=== PATIENT | male | born 1965 | race Caucasian/White ===

== ENCOUNTER 2016-04-01 10:28 | Emergency (ER) | payer MEDICAID, OTHER ==
[~2016-04-01] VITALS: Ht 175.3 cm; Wt 64.4 kg
[~2016-04-01 10:28] MED LIST: ALPR0.25 PO; ALPR0.5T PO; ALPR0.5T6 PO; AMIT100T PO; Amoxicillin/Potassium Clav PO; BENZ100C2 PO; BUPR300T4 PO; CABE0.5T PO; CARI350T PO; CHOL4POW11 PO; CITA10TA4 PO; CITA20TA9 PO; CYCL10TA2 PO; FAMO-63 PO; GABA-585 PO; GABA600T2 PO; HYDR-2666 PO; HYDR-2672 PO; HYDR-971 PO; HYDR5TAB PO; IBUP200T43 PO; LEVO100T PO; NITR0.4T6 SL; QUET100T PO; QUET100T4 PO; QUET25TA5 PO; QUET50TA8 PO; TIZA4TAB PO; ZOLP10TA PO; [UNRECOGNIZED DRUG - OTHER] PO; [UNRECOGNIZED DRUG - REMARK]; ambien
[2016-04-01] MEDS ORDERED: HYDR-963 PO (12:06)
--- NOTE | 2016-04-01 12:07 | PHYS DOC ---
Past Medical History Past Medical History: Anxiety, CHF, COPD, Hypertension Additional Past Medical Histor: DDD, pitutary brain tumor, liver problems, hep c,CHRONIC BACK PAIN Past Surgical History: Other Additional Past Surgical Histo: lower back surgery-2plates, aortic valve tumor removal Alcohol Use: None Drug Use: None Adult General Chief Complaint Chief Complaint: LOWER BACK PAIN OR INJURY [facility] HPI Patient is a 50 year old male who presents with complaint of worsening low back pain. Patient states that he has history of chronic back pain and had surgery in August 2015. The patient states that he has been having trouble with low back pain that radiates towards his left leg over the past week. Patient states that he unfortunately missed his appointment with Dr. Veláz[facility]. Patient states that his next appointment is on June 15, 2016. The patient currently is not having medications to help with this pain. Patient states he normally takes hydrocodone 10 mg tablets for his pain. Patient rates pain currently is 10 out of 10. Patient states that the pain shoots into his left leg. Patient denies any unique or unusual symptoms with his pain and states that it is behaving like it normally does when he does not have his medication. Patient denies any other symptoms currently. Review of Systems Review of Systems Constitutional: Denies fever or chills [] Eyes: Denies change in visual acuity, redness, or eye pain [] HENT: Denies nasal congestion or sore throat [] Respiratory: Denies cough or shortness of breath [] Cardiovascular: No additional information not addressed in HPI [] GI: Denies abdominal pain, nausea, vomiting, bloody stools or diarrhea [] : Denies dysuria or hematuria [] Musculoskeletal: Back pain [] Integument: Denies rash or skin lesions [] Neurologic: Denies headache, loss of bowel or bladder control, foot drop, focal weakness or sensory changes [] Current Medications Current Medications Current Medications Medications (Trade) Dose Ordered Sig/[facility] Start Time Stop Time Status Last Admin Dose Admin Ketorolac Tromethamine (Toradol Im) 60 mg 1X ONCE 04/01/16 12:15 04/01/16 12:16 DC 04/01/16 12:32 60 MG Morphine Sulfate 4 mg 1X ONCE 04/01/16 12:15 04/01/16 12:16 DC 04/01/16 12:32 4 MG Allergies Allergies Allergies Coded Allergies Type Severity Reaction Last Updated Verified Sulfa (Sulfonamide Antibiotics) Allergy Intermediate 03/08/16 Yes Physical Exam Physical Exam Constitutional: Alert, afebrile, appears in moderate discomfort. [] HENT: Normocephalic, atraumatic, bilateral external ears normal, oropharynx moist, no oral exudates, nose normal. [] Eyes: PERRLA, EOMI, conjunctiva normal, no discharge. [] Neck: Normal range of motion, no tenderness, supple, no stridor. [] Cardiovascular:Heart rate regular rhythm, no murmur [] Lungs & Thorax: Bilateral breath sounds clear to auscultation [] Abdomen: Bowel sounds normal, soft, no tenderness, no masses, no pulsatile masses. [] Skin: Warm, dry, no erythema, no rash. [] Back: Left lower lumbar paraspinous muscle tenderness to palpation, no midline tenderness, positive straight leg test in left lower extremity. [] Extremities: No tenderness, no cyanosis, no clubbing, ROM intact, no edema. [] Neurologic: Alert and oriented X 3, normal motor function, normal sensory function, no focal deficits noted. [] Current Patient Data Vital Signs Vital Signs Date Time Temp Pulse Resp B/P Pulse Ox O2 Delivery O2 Flow Rate FiO2 04/01/16 12:32 16 97 Room Air 04/01/16 12:30 67 102/56 04/01/16 11:05 97.5 97.5 EKG EKG Not performed [] Radiology/Procedures Radiology/Procedures Not performed [] Course & Med Decision Making Course & Med Decision Making Pertinent Labs and Imaging studies reviewed. (See chart for details) Patient has an acute exacerbation of chronic back pain. The patient was given IM morphine and Toradol in the emergency department. The patient was given a small prescription for hydrocodone 10 mg. Recommended further prescriptions to be written by the patient's primary physician. Advised return to emergency department for any worsening symptoms. Patient voiced understanding and agreement with treatment plan. Dragon Disclaimer Dragon Disclaimer This electronic medical record was generated, in whole or in part, using a voice recognition dictation system. Departure Departure Impression: Primary Impression: Lumbar back pain Disposition: 01 HOME, SELF-CARE Condition: IMPROVED Referrals: SOHEILA DAVIS MD (PCP) Patient Instructions: Chronic Back Pain Additional Instructions: Follow-up with your primary doctor in the next 3-4 days. Return to emergency department for any worsening symptoms. Scripts Hydrocodone/Apap 10-325 (Protection 10-325 Tablet)1 Each Tablet1 Tab PO Q4-6HRS PRN PAIN #20 TAB Prov:YENNY ORELLANA MD 04/01/16 Problem Qualifiers Primary Impression: Lumbar back pain Chronicity: chronic Back pain laterality: left Sciatica presence: with sciatica Sciatica laterality: sciatica of left side Qualified Code: M54.42 - Lumbago with sciatica, left side YENNY ORELLANA MD Apr 01, 2016 12:07
[2016-04-01] MEDS ORDERED: MORPHINE SULFATE 4 MG/ML DISP.SYRIN. IM ONE (12:15)
[2016-04-01] MEDS ORDERED: KETOROLAC TROMETHAMINE 60 MG/2 ML SYRINGE. IM ONE (12:15)
[2016-04-01 12:30] VITALS: BP 102/56
== END 2016-04-01 12:41 | disposition home or self-care (01) ==
LOC: ER 10:28
DX: M54.42 Lumbago with sciatica, left side (principal); J44.9 Chronic obstructive pulmonary disease, unspecified; G89.29 Other chronic pain; F41.9 Anxiety disorder, unspecified; I11.0 Hypertensive heart disease with heart failure; I50.9 Heart failure, unspecified; Z86.19 Personal history of other infectious and parasitic diseases; Z98.890 Other specified postprocedural states; Z88.2 Allergy status to sulfonamides
CPT/HCPCS: 96372; 99284; J1885; J2270

== ENCOUNTER 2016-05-16 13:57 | Emergency (ER) | payer OTHER ==
[~2016-05-16] VITALS: Ht 175.3 cm; Wt 64.4 kg
[~2016-05-16 13:57] MED LIST changes: +HYDR-963 PO
[2016-05-16] MEDS ORDERED: IV NORMAL SALINE 1000ML BAG 1,000 ML IV SCH (15:17)
--- NOTE | 2016-05-16 15:25 | PHYS DOC ---
Past Medical History Past Medical History: Anxiety, CHF, COPD, Hypertension Additional Past Medical Histor: DDD, pitutary brain tumor, liver problems, hep c,CHRONIC BACK PAIN Past Surgical History: Other Additional Past Surgical Histo: lower back surgery-2plates, aortic valve tumor removal Alcohol Use: None Drug Use: None Adult General Chief Complaint Chief Complaint: SYNCOPE HPI HPI Patient is a 51 year old male who presents with headache after having a syncopal episode. Patient states that the episode took place prior to arrival at home. The patient's episode was witnessed by his significant other who called EMS. Patient states he got very lightheaded prior to the episode. EMS reports that the patient fell to the ground and hit the back of his head on a wall. There were no reports as to how long the patient was out the description is consistent likely with a few minutes. The patient states that he has had intermittent episodes of the same in the past. The patient also states he has history of low blood pressure. Patient states that his blood pressures usually between 90 and 100 systolic. The patient states that he has pain to the back of his head which she rates as 8 out of 10. Patient denies any other injuries. Patient does have history of chronic back pain and states that the fall did exacerbate his back pain symptoms. Review of Systems Review of Systems Constitutional: Denies fever or chills [] Eyes: Denies change in visual acuity, redness, or eye pain [] HENT: Denies nasal congestion or sore throat [] Respiratory: Denies cough or shortness of breath [] Cardiovascular: Syncope, Denies chest pain or edema [] GI: Denies abdominal pain, nausea, vomiting, bloody stools or diarrhea [] : Denies dysuria or hematuria [] Musculoskeletal: Denies back pain or joint pain [] Integument: Denies rash or skin lesions [] Neurologic: Headache, denies focal weakness or sensory changes [] Current Medications Current Medications Current Medications Medications (Trade) Dose Ordered Sig/[facility] Start Time Stop Time Status Last Admin Dose Admin Acetaminophen/ Hydrocodone Bitart (Lortab 10/325) 1 tab 1X ONCE 05/16/16 15:30 05/16/16 15:31 DC 05/16/16 16:04 1 TAB Sodium Chloride (Iv Sodium Chloride 0.9% 1000ml Bag) 1,000 ml @ 1,000 mls/hr Q1H 05/16/16 15:17 05/16/16 16:16 DC 05/16/16 16:04 1,000 MLS/HR Allergies Allergies Allergies Coded Allergies Type Severity Reaction Last Updated Verified Sulfa (Sulfonamide Antibiotics) Allergy Intermediate 03/08/16 Yes Physical Exam Physical Exam Constitutional: Alert, afebrile, hypotensive, no acute distress. [] HENT: Normocephalic, atraumatic, bilateral external ears normal, oropharynx moist, no oral exudates, nose normal. [] Eyes: PERRLA, EOMI, conjunctiva normal, no discharge. [] Neck: Normal range of motion, no tenderness, supple, no stridor. [] Cardiovascular:Heart rate regular rhythm, no murmur [] Lungs & Thorax: Bilateral breath sounds clear to auscultation [] Abdomen: Bowel sounds normal, soft, no tenderness, no masses, no pulsatile masses. [] Skin: Warm, dry, no erythema, no rash. [] Back: No tenderness, no CVA tenderness. [] Extremities: No tenderness, no cyanosis, no clubbing, ROM intact, no edema. [] Neurologic: Alert and oriented X 3, normal motor function, normal sensory function, no focal deficits noted. [] Current Patient Data Vital Signs Vital Signs Date Time Temp Pulse Resp B/P Pulse Ox O2 Delivery O2 Flow Rate FiO2 05/16/16 18:00 68 18 98/65 96 Room Air 05/16/16 13:57 98.4 98.4 Lab Values Laboratory Tests Test 05/16/16 14:10 05/16/16 16:05 05/16/16 18:01 White Blood Count 8.6x10^3/uL (4.0-11.0) Red Blood Count 4.29x10^6/uL (4.30-5.70) L Hemoglobin 12.5g/dL (13.0-17.5) L Hematocrit 38.7% (39.0-53.0) L Mean Corpuscular Volume 90fL (79-100) Mean Corpuscular Hemoglobin 29pg (25-35) Mean Corpuscular Hemoglobin Concent 32g/dL (31-37) Red Cell Distribution Width 14.2% (11.5-14.5) Platelet Count 252x10^3/uL (140-400) Neutrophils (%) (Auto) 69% (31-73) Lymphocytes (%) (Auto) 20% (24-48) L Monocytes (%) (Auto) 10% (0-9) H Eosinophils (%) (Auto) 1% (0-3) Basophils (%) (Auto) 1% (0-3) Neutrophils # (Auto) 5.9x10^3uL (1.8-7.7) Lymphocytes # (Auto) 1.7x10^3/uL (1.0-4.8) Monocytes # (Auto) 0.8x10^3/uL (0.0-1.1) Eosinophils # (Auto) 0.1x10^3/uL (0.0-0.7) Basophils # (Auto) 0.0x10^3/uL (0.0-0.2) Sodium Level 145mmol/L (136-145) Potassium Level 4.5mmol/L (3.5-5.1) Chloride Level 110mmol/L (98-107) H Carbon Dioxide Level 30mmol/L (21-32) Anion Gap 5 (6-14) L Blood Urea Nitrogen 16mg/dL (8-26) Creatinine 1.2mg/dL (0.7-1.3) Estimated GFR (Cockcroft-Gault) 63.3 Glucose Level 49mg/dL (70-99) L Calcium Level 8.5mg/dL (8.5-10.1) Magnesium Level 2.0mg/dL (1.8-2.4) Creatine Kinase 105U/L (39-308) Creatine Kinase MB (Mass) 0.8ng/mL (0.0-3.6) Creatine Kinase MB Relative Index 0.8% (0-4) Troponin I Quantitative < 0.017ng/mL (0.000-0.055) Urine Color Yellow Urine Clarity Clear Urine pH 6.0 Urine Specific [place] 1.010 Urine Protein Negativemg/dL (NEG-TRACE) Urine Glucose (UA) Negativemg/dL (NEG) Urine Ketones (Stick) Negativemg/dL (NEG) Urine Blood Negative (NEG) Urine Nitrite Negative (NEG) Urine Bilirubin Negative (NEG) Urine Urobilinogen Dipstick 0.2mg/dL (0.2 mg/dL) Urine Leukocyte Esterase Negative (NEG) Urine RBC 0/HPF (0-2) Urine WBC Occ/HPF (0-4) Urine Squamous Epithelial Cells Occ/LPF Urine Bacteria 0/HPF (0-FEW) Glucose (Fingerstick) 146mg/dL (70-99) H Laboratory Tests 05/16/16 14:10 Laboratory Tests 05/16/16 14:10 EKG EKG Interpreted by me: Heart rate 61, sinus rhythm, normal intervals, normal axis, no acute ST/T-wave abnormalities present [] Radiology/Procedures Radiology/Procedures [facility] [address] [place] [address] IMAGING REPORT Signed PATIENT: RAPHAEL BURROUGHS ACCOUNT: [id number] : 1965 LOCATION: ER AGE: 51 SEX: M EXAM STATUS: REG ER ORD. PHYSICIAN: YENNY ORELLANA MD REASON: syncope, head injury PROCEDURE: HEAD WO CONTRAST CT of the head without contrast, 05/16/2016: History: Syncope, head injury Comparison is made to a study from 09/21/2015. The ventricles are within normal limits in size. There is no shift of the midline structures. There is no evidence of acute intracranial hemorrhage or mass effect. There are unchanged lucencies in the inferior aspects of both frontal lobes probably representing encephalomalacia due to previous trauma or old infarcts. IMPRESSION: 1. Bilateral frontal lobe encephalomalacia. 2. No acute intracranial abnormality is detected. PQRS Compliance Statement: One or more of the following individualized dose reduction techniques were utilized for this examination: 1. Automated exposure control 2. Adjustment of the mA and/or kV according to patient size 3. Use of iterative reconstruction technique DICTATED and SIGNED BY: GIDEON PATINO MD DATE: 05/16/16 4845 CC: YENNY ORELLANA MD; SOHEILA DAVIS MD ~ [] Course & Med Decision Making Course & Med Decision Making Pertinent Labs and Imaging studies reviewed. (See chart for details) Patient's workup was remarkable for a blood sugar of 49. The patient's head CT was normal and the rest of his metabolic panel was normal. The patient was provided with a meal tray in the emergency department which she was able to eat without difficulty. On reevaluation after IV fluids were given, the patient's blood pressure was found to be within his normal range. The patient states that he would like to go home. The patient was discharged recommended follow-up in 3- 5 days a primary doctor and return to emergency department for any worsening symptoms. Patient voiced understanding and in agreement with treatment plan. Dragon Disclaimer Dragon Disclaimer This electronic medical record was generated, in whole or in part, using a voice recognition dictation system. Departure Departure Impression: Primary Impression: Closed head injury Additional Impressions: Dehydration Hypoglycemia Disposition: 01 HOME, SELF-CARE Condition: IMPROVED Referrals: SOHEILA DAVIS MD (PCP) Patient Instructions: Dehydration, Adult, Head Injury, Adult, Hypoglycemia ( Low Blood Sugar) Additional Instructions: Follow-up to primary doctor in 3-5 days. Be sure to drink plenty of fluids and do not miss any meals. Return to the emergency department for any worsening symptoms. Problem Qualifiers Primary Impression: Closed head injury Encounter type: initial encounter Qualified Code: S09.90XA - Unspecified injury of head, initial encounter YENNY ORELLANA MD May 16, 2016 15:25
[2016-05-16 15:29] LABS: BASO % 1 % (0-3); EOS % 1 % (0-3); HEMATOCRIT 38.7 % (39.0-53.0); HEMOGLOBIN 12.5 g/dL (13.0-17.5); LYMPH # 1.7 x10^3/uL (1.0-4.8); LYMPH % 20 % (24-48); MEAN CORPUSCULAR HEMOGLOBIN 29 pg (25-35); MEAN CORPUSCULAR HGB CONC 32 g/dL (31-37); MEAN CORPUSCULAR VOLUME 90 fL (79-100); MONO % 10 % (0-9); NEUT % 69 % (31-73); PLATELET COUNT 252 x10^3/uL (140-400); RED BLOOD COUNT 4.29 x10^6/uL (4.30-5.70); RED CELL DISTRIBUTION WIDTH 14.2 % (11.5-14.5); WHITE BLOOD COUNT 8.6 x10^3/uL (4.0-11.0)
[2016-05-16] MEDS ORDERED: HYDROCODONE/APAP 10/325 TABLET. PO ONE (15:30)
[2016-05-16 15:43] LABS: CALCIUM 8.5 mg/dL (8.5-10.1); CREATININE 1.2 mg/dL (0.7-1.3); GFR 63.3; POTASSIUM 4.5 mmol/L (3.5-5.1)
[2016-05-16 15:57] LABS: CKMB INDEX 0.8 % (0-4); CKMB MASS 0.8 ng/mL (0.0-3.6)
--- NOTE | 2016-05-16 16:00 | RAD ---
CT of the head without contrast, 05/16/2016: History: Syncope, head injury Comparison is made to a study from 09/21/2015. The ventricles are within normal limits in size. There is no shift of the midline structures. There is no evidence of acute intracranial hemorrhage or mass effect. There are unchanged lucencies in the inferior aspects of both frontal lobes probably representing encephalomalacia due to previous trauma or old infarcts. IMPRESSION: 1. Bilateral frontal lobe encephalomalacia. 2. No acute intracranial abnormality is detected. PQRS Compliance Statement: One or more of the following individualized dose reduction techniques were utilized for this examination: 1. Automated exposure control 2. Adjustment of the mA and/or kV according to patient size 3. Use of iterative reconstruction technique
--- NOTE | 2016-05-16 16:27 | EKG ---
[facility] [address] [place] [address] Test Date: 2016-05-16 Test Time: 15:36:27 Pat Name: RAPHAEL BURROUGHS Department: Room: Gender: M [employer] Equipment [employer]: : 1965 Requested By: YENNY ORELLANA Order Number: [id number] Reading MD: Measurements Intervals [place] Rate: 61 P: 48 SC: 196 QRS: 66 QRSD: 90 T: 40 QT: 408 QTc: 416 Interpretive Statements SINUS RHYTHM LOW LIMB LEAD VOLTAGE RI6.01 Unconfirmed report No previous ECG available for comparison
[2016-05-16 16:37] LABS: BILIRUBIN,URINE NEGATIVE (NEG); GLUCOSE,URINE NEGATIVE (NEG); NITRITE,URINE NEGATIVE (NEG); PROTEIN,URINE NEGATIVE (NEG-TRACE); UROBILINOGEN,URINE 0.2 mg/dL (0.2 mg/dL)
[2016-05-16 17:10] LABS: BACTERIA,URINE 0 /HPF (0-FEW); RBC,URINE 0 /HPF (0-2); SQUAMOUS EPITHELIAL CELL,UR OCC /LPF; WBC,URINE OCC /HPF (0-4)
[2016-05-16 18:00] VITALS: BP 98/65
--- NOTE | 2016-05-17 11:13 | RAD ---
INDICATION: syncope COMPARISON: 02/22/2016 FINDINGS: Single view of chest obtained. Poststernotomy changes. Cardiac silhouette is not grossly enlarged. No definite focal airspace consolidation IMPRESSION: No focal airspace consolidation or edema.
== END 2016-05-16 18:31 | disposition home or self-care (01) ==
LOC: ER 13:57
DX: S09.90XA Unspecified injury of head, initial encounter (principal); E86.0 Dehydration; E16.2 Hypoglycemia, unspecified; J44.9 Chronic obstructive pulmonary disease, unspecified; I11.0 Hypertensive heart disease with heart failure; I50.9 Heart failure, unspecified; F41.9 Anxiety disorder, unspecified; G89.29 Other chronic pain; Z86.19 Personal history of other infectious and parasitic diseases; Z88.2 Allergy status to sulfonamides; W01.198A Fall on same level from slipping, tripping and stumbling with subsequent striking against other object, initial encounter; Y93.89 Activity, other specified; Y92.89 Other specified places as the place of occurrence of the external cause; Y99.8 Other external cause status
CPT/HCPCS: 36415; 70450; 71010; 80048; 81001; 82553; 82947; 83735; 84484; 85027; 93005; 96360; 99285; J7030

== ENCOUNTER 2016-06-18 00:18 | Emergency (ER) | payer SELFPAY ==
[~2016-06-18] VITALS: Ht 162.6 cm; Wt 64.4 kg
[2016-06-18 00:38] VITALS: BP 97/54
[2016-06-18] MEDS ORDERED: CYCL5TAB PO (01:25)
--- NOTE | 2016-06-18 01:25 | PHYS DOC ---
Past Medical History Past Medical History: Anxiety, CHF, COPD, Hypertension Additional Past Medical Histor: DDD, pitutary brain tumor, liver problems, hep c,CHRONIC BACK PAIN Past Surgical History: Other Additional Past Surgical Histo: lower back surgery-2plates, aortic valve tumor removal Alcohol Use: None Drug Use: None Adult General Chief Complaint Chief Complaint: LOWER BACK PAIN OR INJURY [facility] HPI Patient is a 51 year old male who presents with chronic back pain not controlled with OTC meds. States pain is unchanged to low back, constant, worse with movement. Does not have a PCP at this time. Denies numbness, tingling , weakness, injury, saddle anesthesia, bowel or bladder dysfunction, f/c. Review of Systems Review of Systems Constitutional: Denies fever or chills [] Eyes: Denies change in visual acuity, redness, or eye pain [] HENT: Denies nasal congestion or sore throat [] Respiratory: Denies cough or shortness of breath [] Cardiovascular: No additional information not addressed in HPI [] GI: Denies abdominal pain, nausea, vomiting, bloody stools or diarrhea [] : Denies dysuria or hematuria [] Musculoskeletal: Denies joint pain [] Integument: Denies rash or skin lesions [] Neurologic: Denies headache, focal weakness or sensory changes [] Endocrine: Denies polyuria or polydipsia [] Current Medications Current Medications Current Medications Medications (Trade) Dose Ordered Sig/[facility] Start Time Stop Time Status Last Admin Dose Admin Acetaminophen/ Hydrocodone Bitart (Lortab 5/325) 2 tab 1X ONCE 06/18/16 01:30 06/18/16 01:31 DC 06/18/16 01:24 2 TAB Allergies Allergies Allergies Coded Allergies Type Severity Reaction Last Updated Verified Sulfa (Sulfonamide Antibiotics) Allergy Intermediate 03/08/16 Yes Physical Exam Physical Exam Constitutional: Well developed, well nourished, no acute distress, non-toxic appearance. [] HENT: Normocephalic, atraumatic, bilateral external ears normal, oropharynx moist, nose normal. [] Eyes: PERRLA, EOMI. [] Neck: Normal range of motion, supple. [] Cardiovascular:Heart rate regular rhythm [] Lungs & Thorax: Bilateral breath sounds clear to auscultation [] Abdomen: Bowel sounds normal, soft, no tenderness. [] Skin: Warm, dry, no erythema, no rash. [] Back: No CVA tenderness. Has minimal tenderness to lumbar spine about incision scar [] Extremities: No tenderness, ROM intact, equal dp pulses. [] Neurologic: Alert and oriented X 3, normal motor function, normal sensory function, no focal deficits noted. [] Psychologic: Affect normal, judgement normal, mood normal. [] Current Patient Data Vital Signs Vital Signs Date Time Temp Pulse Resp B/P Pulse Ox O2 Delivery O2 Flow Rate FiO2 06/18/16 01:24 16 Room Air 06/18/16 00:38 98.8 73 97/54 97 98.8 Course & Med Decision Making Course & Med Decision Making Discussed symptomatic care and importance of f/u with PCP for further pain management of chronic condition. Return precautions given. He understands and agrees with plan. Dragon Disclaimer Dragon Disclaimer This electronic medical record was generated, in whole or in part, using a voice recognition dictation system. Departure Departure Impression: Primary Impression: Back pain Disposition: HOME, SELF-CARE Condition: STABLE Referrals: SOHEILA DAVIS MD (PCP) Patient Instructions: Back Pain, Adult, [id number] Additional Instructions: Take Tylenol or ibuprofen as needed for moderate pain. Take cyclobenzaprine as needed for muscle spasm. Do not drink, drive or operate heavy machinery after taking cyclobenzaprine as it may make you sleepy. Follow-up with your primary care doctor. Return for any concerns. Scripts Cyclobenzaprine Hcl 5 Mg Tablet1 Tab PO TID PRN MUSCLE SPASMS #10 TAB Prov:Preston DIA MD 06/18/16 Problem Qualifiers Primary Impression: Back pain Back pain location: low back pain Chronicity: chronic Back pain laterality : bilateral Sciatica presence: without sciatica Qualified Code: M54.5 - Low back pain Preston DIA MD Jun 18, 2016 01:25
[2016-06-18] MEDS ORDERED: HYDROCODONE/APAP 5/325MG TABLET. PO ONE (01:30)
== END 2016-06-18 01:32 | disposition home or self-care (01) ==
LOC: ER 00:18
DX: M54.5 Low back pain (principal); J44.9 Chronic obstructive pulmonary disease, unspecified; I11.0 Hypertensive heart disease with heart failure; I50.9 Heart failure, unspecified; G89.29 Other chronic pain; Z88.2 Allergy status to sulfonamides
CPT/HCPCS: 99283

== ENCOUNTER 2016-07-16 21:17 | Emergency (ER) | payer OTHER ==
[~2016-07-16] VITALS: Ht 175.3 cm; Wt 64.4 kg
[~2016-07-16 21:17] MED LIST changes: +CYCL5TAB PO
[2016-07-16 21:25] VITALS: BP 102/67
[2016-07-16] MEDS ORDERED: MORPHINE SULFATE 10 MG/ML VIAL. IM ONE (22:15)
[2016-07-16] MEDS ORDERED: METH-37 PO (22:16)
[2016-07-16] MEDS ORDERED: HYDR-963 PO (22:16)
--- NOTE | 2016-07-16 22:17 | PHYS DOC ---
Past Medical History Past Medical History: Anxiety, CHF, COPD, Hypertension Additional Past Medical Histor: DDD, pitutary brain tumor, liver problems, hep c,CHRONIC BACK PAIN Past Surgical History: Other Additional Past Surgical Histo: lower back surgery-2plates, aortic valve tumor removal Smoking: Less than 1pk/day Alcohol Use: None Drug Use: None Adult General Chief Complaint Chief Complaint: BACK PAIN - NO INJURY HPI HPI Patient is a 51 year old male with history of chronic low back pain who presents with acute exacerbation of his back pain today. He states that he was gardening today when his back began to ache. He was on his hands and knees, bending over to work in the garden. He has intermittent numbness in the left leg. He denies focal weakness, incontinence, saddle anesthesia. nausea, vomiting , abdominal pain, or urinary symptoms. He states that his current pain is typical of his chronic pain. He has had multiple surgeries on his back. He is currently wearing a back brace and using a cane for assistance with ambulation. He does not always wear the brace or use a cane. He usually takes Gerlach 10/ 325mg for his pain. He is between doctors currently and has been out of his pain medication for a month. Review of Systems Review of Systems Constitutional: Denies fever or chills. [] Eyes: Denies change in visual acuity, redness, or eye pain. [] HENT: Denies ear pain, nasal congestion or sore throat. [] Respiratory: Denies cough or shortness of breath. [] Cardiovascular: Denies chest pain, palpitations or edema. [] GI: Denies abdominal pain, nausea, vomiting, bloody stools or diarrhea. [] : Denies dysuria, hematuria or urinary frequency. [] Musculoskeletal: Denies joint pain. Reports low back pain. Integument: Denies rash or skin lesions. [] Neurologic: Denies headache, focal weakness or sensory changes. Denies incontinence or saddle anesthesia. Endocrine: Denies polyuria or polydipsia. [] Psych: Denies anxiety or depression. [] All systems reviewed and negative unless otherwise stated in the HPI. Current Medications Current Medications Current Medications Medications (Trade) Dose Ordered Sig/Garrett Start Time Stop Time Status Last Admin Dose Admin Morphine Sulfate 5 mg 1X ONCE 07/16/16 22:15 4/18/17 22:16 Allergies Allergies Allergies Coded Allergies Type Severity Reaction Last Updated Verified Sulfa (Sulfonamide Antibiotics) Allergy Intermediate 03/08/16 Yes Physical Exam Physical Exam Constitutional: Well developed, well nourished, no acute distress, non-toxic appearance. [] HENT: Normocephalic, atraumatic, oropharynx moist. [] Eyes: PERRLA, EOMI, conjunctiva normal, no discharge. [] Neck: Normal range of motion, no tenderness, supple, no stridor. [] Cardiovascular: Heart rate regular rhythm, no murmur. [] Lungs & Thorax: Bilateral breath sounds clear to auscultation without wheezes, rales, or rhonchi. [] Abdomen: Bowel sounds normal, soft, no tenderness, no masses, no pulsatile masses. [] Skin: Warm, dry, no erythema, no rash. [] Back: Lumbar midline tenderness, no CVA tenderness. Left lumbar paraspinal muscle tenderness. Extremities: No tenderness, ROM intact, no edema. Distal pulses equal bilaterally. [] Neurologic: Alert and oriented X 3, normal motor function, normal sensory function, no focal deficits noted. [] Psychologic: Affect normal, judgement normal, mood normal. [] Current Patient Data Vital Signs Vital Signs Date Time Temp Pulse Resp B/P Pulse Ox O2 Delivery O2 Flow Rate FiO2 07/16/16 21:25 99.0 75 16 99 Room Air 99.0 EKG EKG [] Radiology/Procedures Radiology/Procedures [] Course & Med Decision Making Course & Med Decision Making Pertinent Labs and Imaging studies reviewed. (See chart for details) [] Dragon Disclaimer Dragon Disclaimer This electronic medical record was generated, in whole or in part, using a voice recognition dictation system. Departure Departure Impression: Primary Impression: Low back pain Disposition: HOME, SELF-CARE Condition: STABLE Referrals: UNKNOWN PCP NAME (PCP) Patient Instructions: Chronic Back Pain Additional Instructions: Please take the prescribed medications as directed. Do not drive or operate heavy machinery while taking these medications. Please follow up with your primary care doctor if your pain continues. Return to the emergency department if you have any new or concerning symptoms. Scripts Hydrocodone/Apap 10-325 (Gerlach 10-325 Tablet)1 Each Tablet1 Tab PO PRN Q6HRS PRN PAIN #20 TAB Ref 0 Prov:JACQUES MARIE 07/16/16 Methocarbamol (Robaxin)500 Mg [id number] Mg PO QID #20 TAB Prov:JACQUES MARIE 07/16/16 Problem Qualifiers Primary Impression: Low back pain Chronicity: acute Back pain laterality: left Sciatica presence: with sciatica Sciatica laterality: sciatica of left side Qualified Code: M54.42 - Lumbago with sciatica, left side JACQUES MARIE Jul 16, 2016 22:17
== END 2016-07-16 22:20 | disposition home or self-care (01) ==
LOC: ER 21:17
DX: M54.42 Lumbago with sciatica, left side (principal); I11.0 Hypertensive heart disease with heart failure; I50.9 Heart failure, unspecified; J44.9 Chronic obstructive pulmonary disease, unspecified; G89.29 Other chronic pain; F41.9 Anxiety disorder, unspecified; F17.200 Nicotine dependence, unspecified, uncomplicated; Z88.2 Allergy status to sulfonamides
CPT/HCPCS: 96372; 99283; J2270

== ENCOUNTER 2016-07-20 01:11 | Inpatient (IN) | payer OTHER ==
[~2016-07-20] VITALS: Ht 175.3 cm; Wt 55.3 kg
[~2016-07-20 01:11] MED LIST changes: +METH-37 PO
[2016-07-20 01:48] LABS: BASO # 0.1 x10^3/uL (0.0-0.2); BASO % 1 % (0-3); EOS % 1 % (0-3); HEMATOCRIT 33.2 % (39.0-53.0); HEMOGLOBIN 10.9 g/dL (13.0-17.5); LYMPH # 2.7 x10^3/uL (1.0-4.8); LYMPH % 40 % (24-48); MEAN CORPUSCULAR HEMOGLOBIN 30 pg (25-35); MEAN CORPUSCULAR HGB CONC 33 g/dL (31-37); MEAN CORPUSCULAR VOLUME 90 fL (79-100); MONO % 7 % (0-9); NEUT % 52 % (31-73); PLATELET COUNT 235 x10^3/uL (140-400); RED BLOOD COUNT 3.67 x10^6/uL (4.30-5.70); WHITE BLOOD COUNT 6.8 x10^3/uL (4.0-11.0)
[2016-07-20 01:57] LABS: PROTHROMBIN TIME PATIENT 12.1 SEC (11.7-14.0)
[2016-07-20 01:59] LABS: CALCIUM 8.7 mg/dL (8.5-10.1); CREATININE 1.1 mg/dL (0.7-1.3); POTASSIUM 3.8 mmol/L (3.5-5.1)
[2016-07-20] MEDS ORDERED: MORPHINE SULFATE 2 MG/ML DISP.SYRIN. IV/SQ PRN (02:00)
[2016-07-20] MEDS ORDERED: ASPIRIN 325 MG TABLET PO ONE (02:00)
[2016-07-20 02:05] LABS: ALBUMIN 3.1 g/dL (3.4-5.0); ALBUMIN/GLOBULIN RATIO 1.2 (1.0-1.7); TOTAL BILIRUBIN 0.4 mg/dL (0.2-1.0); TOTAL PROTEIN 5.6 g/dL (6.4-8.2)
[2016-07-20] MEDS ORDERED: IV NORMAL SALINE 500ML BAG 500 ML IV ONE (02:45)
[2016-07-20] MEDS ORDERED: ACETAMINOPHEN 325 MG TABLET. PO PRN (02:45)
[2016-07-20] MEDS ORDERED: NITROGLYCERIN SUBLINGUAL 0.4 MG BOTTLE OF 25. SL PRN (02:45)
[2016-07-20] MEDS ORDERED: ONDANSETRON PF 4 MG/2 ML VIAL. IV PRN (02:45)
[2016-07-20] MEDS ORDERED: NICOTINE 7MG PATCH. TD PRN (03:30)
[2016-07-20 03:41] VITALS: BP 90/53
[2016-07-20 03:42] VITALS: BP 90/53
[2016-07-20] MEDS ORDERED: HYDR25TA PO (03:54)
[2016-07-20] MEDS ORDERED: NAPR-585 PO (03:54)
[2016-07-20] MEDS ORDERED: TRAZ100T12 PO (03:54)
[2016-07-20] MEDS ORDERED: HYDR100V IJ (03:54)
[2016-07-20] MEDS ORDERED: LISI2.5T PO (03:54)
[2016-07-20] MEDS ORDERED: ASPI-482 PO (03:54)
[2016-07-20] MEDS ORDERED: AMIT50TA PO (03:54)
[2016-07-20] MEDS: MORPHINE SULFATE 2 MG/ML DISP.SYRIN. IV PRN ×2 (04:28→06:40)
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
--- NOTE | 2016-07-20 06:13 | EKG ---
[facility] [address] [place] [address] Test Date: 2016-07-20 Test Time: 01:15:38 Pat Name: RAPHAEL BURROUGHS Department: Room: 209 1 Gender: M Hog Room Supervisor: Julieta : 1965 Requested By: IVÁN ALEMAN Order Number: [id number] Reading MD: Alexandria Justice Measurements Intervals [place] Rate: 53 P: 126 AR: 190 QRS: 117 QRSD: 98 T: 156 QT: 426 QTc: 402 Interpretive Statements SINUS RHYTHM ABNORMAL RIGHT AXIS DEVIATION LOW LIMB LEAD VOLTAGE QRS(T) CONTOUR ABNORMALITY CONSISTENT WITH HIGH LATERAL INFARCT AGE UNDETERMINED Electronically Signed On 07-21-2016 17:29:51 CDT by Alexandria Justice
[2016-07-20 07:00] VITALS: BP 97/56
--- NOTE | 2016-07-20 07:59 | RAD ---
AP portable chest radiograph 07/20/2016 Clinical History: Chest pain. An AP portable erect digital radiograph of the chest was obtained. Comparison study is dated 05/16/2016. The patient is status post median sternotomy. The cardiac silhouette is normal in size. The thoracic aorta is minimally tortuous. No acute pulmonary infiltrate is seen. No pleural effusion or pneumothorax is noted. The osseous structures are unchanged. Impression: No acute abnormality is seen.
--- NOTE | 2016-07-20 08:44 | PDOC2 ---
CARDIAC CONSULT DATE OF CONSULT Date of Consult DATE: 07/20/16 TIME: 08:19 REASON FOR CONSULT Reason for Consult: Chest pain REFERRING PHYSICIAN Referring Physician: Hermes SOURCE Source: Chart review, Patient HISTORY OF PRESENT ILLNESS HISTORY OF PRESENT ILLNESS This is a 51 yo male admitted for complains of chest pain. He is currently unpleasant and is threatening to leave today and has been acting frustrated and angry at the staff complaining about his medications not being given on time. He actually told me that he takes his medications whenever he feels like it. I talked to him about his cocaine use yesterday and immediately went off in a tangent and was accusatory of telling him what to do and verbalized that till yesterday the last time he used cocaine was 2007. He was having sharp left chest pain yesterday during his argument with his spouse and was feeling SOA with nausea with left arm tingling. Overnight there has not been recurrence of this discomfort. I was not able to get a much detailed account of his HPI due to his agitated behavior. Based from chart review he did not have CABG but had an aortic tumor removal explaining his mid chest incision and supposed to have been following up in . PAST MEDICAL HISTORY Cardiovascular: CAD (?), CHF, HTN, Syncope, Other (aortic tumor removal) Pulmonary: COPD CENTRAL NERVOUS SYSTEM: CVA (?) GI: GERD, Other (dysphagia) Heme/Onc: Anemia NOS, Cancer (pituitary tumor) Hepatobiliary: Hep A/B/C (C) Psych: Anxiety, Other (Polysubstance abuse) Musculoskeletal: low back pain, Osteoarthritis Rheumatologic: No pertinent hx Infectious disease: No pertinent hx ENT: No pertinent hx Renal/: No pertinent hx Endocrine: Hypothyroidism Dermatology: No pertinent hx PAST SURGICAL HISTORY Past Surgical History pituitary brain tumor status post resection, back surgery, recent EGD and colonoscopy, [facility] 2013, valve surgery? FAMILY HISTORY Family History: Coronary Artery Disease SOCIAL HISTORY Smoke: <1 pack per day ALCOHOL: occassional Drugs: None CURRENT MEDICATIONS CURRENT MEDICATIONS Current Medications Medications (Trade) Dose Ordered Sig/Garrett Route PRN Reason Start Time Stop Time Status Last Admin Dose Admin Aspirin (Michelle Aspirin) 325 mg 1X ONCE PO 07/20/16 02:00 07/20/16 02:01 DC 07/20/16 01:51 Morphine Sulfate 2 mg PRN Q15MIN PRN IV/SQ PAIN GREATER THAN 3/10 07/20/16 02:00 07/21/16 01:59 07/20/16 01:54 Morphine Sulfate 2 mg 2 mg PRN Q2HR PRN IV PAIN 07/20/16 02:45 07/21/16 02:44 07/20/16 06:40 Sodium Chloride (Iv Sodium Chloride 0.9% 500ml Bag) 500 ml @ 0 mls/hr 1X ONCE IV 07/20/16 02:45 07/20/16 02:46 DC 07/20/16 02:45 ALLERGIES ALLERGIES: Coded Allergies: Sulfa (Sulfonamide Antibiotics) (Verified Allergy, Intermediate, 03/08/16) ROS Review of System limited, see HPI PHYSICAL EXAM General: Alert, Oriented X3, No acute distress HEENT: Atraumatic, Mucous membr. moist/pink Lungs: Other (dioffuse faint wheeze) Heart: Regular rate, Normal S1, Normal S2 Abdomen: Soft, No tenderness Extremities: No cyanosis, No edema Skin: No breakdown, No significant lesion Neuro: Normal speech, Sensation intact Psych/Mental Status: Other (agitated) MUSCULOSKELETAL: Osteoarthritic changes both hands VITALS VITALS Vital Signs Date Time Temp Pulse Resp B/P Pulse Ox O2 Delivery O2 Flow Rate FiO2 07/20/16 07:10 96 Room Air 07/20/16 03:42 52 21 90/53 07/20/16 01:24 97.6 97.6 LABS Lab: Laboratory Tests Test 07/20/16 01:22 White Blood Count 6.8x10^3/uL (4.0-11.0) Red Blood Count 3.67x10^6/uL (4.30-5.70) Hemoglobin 10.9g/dL (13.0-17.5) Hematocrit 33.2% (39.0-53.0) Mean Corpuscular Volume 90fL (79-100) Mean Corpuscular Hemoglobin 30pg (25-35) Mean Corpuscular Hemoglobin Concent 33g/dL (31-37) Red Cell Distribution Width 15.0% (11.5-14.5) Platelet Count 235x10^3/uL (140-400) Neutrophils (%) (Auto) 52% (31-73) Lymphocytes (%) (Auto) 40% (24-48) Monocytes (%) (Auto) 7% (0-9) Eosinophils (%) (Auto) 1% (0-3) Basophils (%) (Auto) 1% (0-3) Neutrophils # (Auto) 3.5x10^3uL (1.8-7.7) Lymphocytes # (Auto) 2.7x10^3/uL (1.0-4.8) Monocytes # (Auto) 0.4x10^3/uL (0.0-1.1) Eosinophils # (Auto) 0.1x10^3/uL (0.0-0.7) Basophils # (Auto) 0.1x10^3/uL (0.0-0.2) Prothrombin Time 12.1SEC (11.7-14.0) Prothromb Time International Ratio 1.0 (0.8-1.1) Activated Partial Thromboplast Time 21SEC (24-38) Sodium Level 143mmol/L (136-145) Potassium Level 3.8mmol/L (3.5-5.1) Chloride Level 106mmol/L (98-107) Carbon Dioxide Level 30mmol/L (21-32) Anion Gap 7 (6-14) Blood Urea Nitrogen 23mg/dL (8-26) Creatinine 1.1mg/dL (0.7-1.3) Estimated GFR (Cockcroft-Gault) 70.0 BUN/Creatinine Ratio 21 (6-20) Glucose Level 107mg/dL (70-99) Calcium Level 8.7mg/dL (8.5-10.1) Total Bilirubin 0.4mg/dL (0.2-1.0) Aspartate Amino Transf (AST/SGOT) 61U/L (15-37) Alanine Aminotransferase (ALT/SGPT) 105U/L (16-63) Alkaline Phosphatase 50U/L (46-116) Troponin I Quantitative < 0.017ng/mL (0.000-0.055) GN-Wog-I-Type Natriuretic Peptide 312pg/mL (0-124) Total Protein 5.6g/dL (6.4-8.2) Albumin 3.1g/dL (3.4-5.0) Albumin/Globulin Ratio 1.2 (1.0-1.7) ASSESSMENT/PLAN ASSESSMENT/PLAN 1. Chest pain: likely from anxiety. Possible vasospastic component with use of cocaine yesterday. initial trop normal, EKG SB without acute changes. Doubt ACS. . 2. CAD? [facility] 06/2013 at [facility] no report. 3. Chronic NSAID use 4. Aortic tumor removal hx 5. HTN: at low end asymptomatic 6. Hx of polysubstance abuse: last cocaine use yesterday 7. COPD with tobaccoism 8. Hep C 9. Chronic anemia: 10. Hypothyroidism Recommendations 1. Pt threatening to go AMA. If remains tomorrow then will proceed with TTE 2. Decreased Home BP regimen 3. Was not able to fully discussed abstinence and smoking cessation since pt gets agitated with these subject of lifestyle modifications 4. Drug screen 5. 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
[2016-07-20] MEDS ORDERED: traMADol 50 MG TABLET PO PRN (09:00)
[2016-07-20 09:02] LABS: CHOLESTEROL/HDL RATIO 2.5
[2016-07-20] MEDS ORDERED: HYDROcodone/APAP 10/325 1 TAB TABLET PO PRN (10:00)
[2016-07-20] MEDS ORDERED: CYCLOBENZAPRINE 10 MG TABLET. PO PRN (10:00)
[2016-07-20] MEDS ORDERED: ALPRAZolam 0.5 MG TABLET PO PRN (10:00)
[2016-07-20 10:32] VITALS: BP 97/56
[2016-07-20] MEDS ORDERED: FAMOTIDINE 20 MG TABLET. PO SCH (11:00)
[2016-07-20] MEDS ORDERED: ASPIRIN ENTERIC COATED 81 MG TABLET.DR. PO SCH (11:00)
[2016-07-20] MEDS ORDERED: LISINOPRIL 2.5 MG TABLET PO SCH (11:00)
--- NOTE | 2016-07-20 12:40 | PDOC1 ---
History and Physical Date of Admission Date of Admission 07/19/16 Identification/Chief Complaint Chief Complaint chest pain Problems: Source Source: Chart review, Patient History of Present Illness History of Present Illness 51yo M, non compliant with her medical care and doesnot take his meds, comes to ER for chEST PAIN. hE admitted to ER he used cocaine, (first time since 2006, likely lie). He has been very agitated and threatening to staff on the floor overnight, only wants to eat. he said he had open heart sx in 2006, no details, but cath [place] [address] Pedroza was clean. pt comes to ER every month. Past Medical History Cardiovascular: CAD (?), CHF, HTN, Syncope, Other (aortic tumor removal) Pulmonary: COPD CENTRAL NERVOUS SYSTEM: CVA (?) GI: GERD, Other (dysphagia) Heme/Onc: Anemia NOS, Cancer (pituitary tumor) Hepatobiliary: Hep A/B/C (C) Psych: Anxiety, Other (Polysubstance abuse) Rheumatologic: No pertinent hx Infectious disease: No pertinent hx ENT: No pertinent hx Renal/: No pertinent hx Endocrine: Hypothyroidism Dermatology: No pertinent hx Past Surgical History Past Surgical History: CABG Family History Family History: Coronary Artery Disease Social History Smoke: <1 pack per day ALCOHOL: occassional Drugs: Cocaine Current Problem List Problem List Problems Medical Problems: (1) Chest pain Status: Acute (2) Cocaine abuse Status: Acute Current Medications Current Medications Current Medications Medications (Trade) Dose Ordered Sig/Garrett Start Time Stop Time Status Last Admin Dose Admin Acetaminophen (Tylenol) 650 mg PRN Q4HRS PRN 07/20/16 02:45 07/20/16 11:36 DC Acetaminophen/ Hydrocodone Bitart (Lortab 10/325) 1 tab PRN Q6HRS PRN 07/20/16 10:00 07/20/16 11:36 DC 07/20/16 10:33 Alprazolam (Xanax) 0.5 mg PRN BID PRN 07/20/16 10:00 07/20/16 11:36 DC 07/20/16 10:33 Amitriptyline HCl (Amitriptyline HCl) 50 mg QHS 07/20/16 21:00 07/20/16 21:00 DC Aspirin (Michelle Aspirin) 325 mg 1X ONCE 07/20/16 02:00 07/20/16 02:01 DC 07/20/16 01:51 Aspirin (Ecotrin) 81 mg DAILY 07/20/16 11:00 07/20/16 11:36 DC 07/20/16 10:32 Cyclobenzaprine HCl (Flexeril) 10 mg PRN BID PRN 07/20/16 10:00 07/20/16 11:36 DC 07/20/16 10:32 Famotidine (Pepcid) 20 mg BID 07/20/16 11:00 07/20/16 11:36 DC 07/20/16 10:33 Lisinopril (Prinivil) 2.5 mg DAILY 07/20/16 11:00 07/20/16 11:36 DC 07/20/16 10:32 Morphine Sulfate 2 mg PRN Q2HR PRN 07/20/16 02:45 07/20/16 11:36 DC 07/20/16 06:40 Nicotine (Nicoderm Cq 7mg) 1 patch PRN DAILY PRN 07/20/16 03:30 07/20/16 11:36 DC 07/20/16 10:34 Nitroglycerin 0.4 mg 0.4 mg PRN Q5MIN PRN 07/20/16 02:45 07/20/16 11:36 DC Ondansetron HCl (Zofran) 4 mg PRN Q8HRS PRN 07/20/16 02:45 07/20/16 11:36 DC Sodium Chloride (Iv Sodium Chloride 0.9% 500ml Bag) 500 ml @ 0 mls/hr 1X ONCE 07/20/16 02:45 07/20/16 02:46 DC 07/20/16 02:45 Tramadol HCl (Ultram) 50 mg PRN Q6HRS PRN 07/20/16 09:00 07/20/16 11:36 DC Trazodone HCl (Desyrel) 100 mg HS 07/20/16 21:00 07/20/16 21:00 DC Allergies Allergies Allergies Coded Allergies Type Severity Reaction Last Updated Verified Sulfa (Sulfonamide Antibiotics) Allergy Intermediate 03/08/16 Yes ROS Review of System CONSTITUTIONAL: No fever or chills EYES: No recent changes SKIN: No rash or itching CARDIOVASCULAR: No chest pain, syncope, palpitations, or edema RESPIRATORY: No SOB or cough GASTROINTESTINAL: No nausea, vomiting or abdominal pain NEUROLOGICAL: No headaches or weakness ENDOCRINE: No cold or heat intolerance GENITOURINARY: No urgency or frequency of urination MUSCULOSKELETAL: No back pain or joint pain LYMPHATICS: No enlarged lymph nodes PSYCHIATRIC: No anxiety or depression Physical Exam Physical Exam GEN.: No apparent distress. Alert and oriented. very agitated HEENT: Head is normocephalic, atraumatic NECK: Supple. LUNGS: Clear to auscultation. HEART: RRR, S1, S2 present. Peripheral pulses intact ABDOMEN: Soft, nontender. Positive bowel sounds. EXTREMITIES: Without any cyanosis. NEUROLOGIC: Normal speech, normal tone PSYCHIATRIC: Normal affect, normal mood. SKIN: No ulcerations Vitals Vitals Vital Signs Date Time Temp Pulse Resp B/P Pulse Ox O2 Delivery O2 Flow Rate FiO2 07/20/16 10:33 18 96 Room Air 07/20/16 10:32 66 97/56 07/20/16 07:00 97.3 97.3 Labs Labs Laboratory Tests Test 07/20/16 01:22 07/20/16 08:26 White Blood Count 6.8x10^3/uL (4.0-11.0) Red Blood Count 3.67x10^6/uL (4.30-5.70) Hemoglobin 10.9g/dL (13.0-17.5) Hematocrit 33.2% (39.0-53.0) Mean Corpuscular Volume 90fL (79-100) Mean Corpuscular Hemoglobin 30pg (25-35) Mean Corpuscular Hemoglobin Concent 33g/dL (31-37) Red Cell Distribution Width 15.0% (11.5-14.5) Platelet Count 235x10^3/uL (140-400) Neutrophils (%) (Auto) 52% (31-73) Lymphocytes (%) (Auto) 40% (24-48) Monocytes (%) (Auto) 7% (0-9) Eosinophils (%) (Auto) 1% (0-3) Basophils (%) (Auto) 1% (0-3) Neutrophils # (Auto) 3.5x10^3uL (1.8-7.7) Lymphocytes # (Auto) 2.7x10^3/uL (1.0-4.8) Monocytes # (Auto) 0.4x10^3/uL (0.0-1.1) Eosinophils # (Auto) 0.1x10^3/uL (0.0-0.7) Basophils # (Auto) 0.1x10^3/uL (0.0-0.2) Prothrombin Time 12.1SEC (11.7-14.0) Prothromb Time International Ratio 1.0 (0.8-1.1) Activated Partial Thromboplast Time 21SEC (24-38) Sodium Level 143mmol/L (136-145) Potassium Level 3.8mmol/L (3.5-5.1) Chloride Level 106mmol/L (98-107) Carbon Dioxide Level 30mmol/L (21-32) Anion Gap 7 (6-14) Blood Urea Nitrogen 23mg/dL (8-26) Creatinine 1.1mg/dL (0.7-1.3) Estimated GFR (Cockcroft-Gault) 70.0 BUN/Creatinine Ratio 21 (6-20) Glucose Level 107mg/dL (70-99) Calcium Level 8.7mg/dL (8.5-10.1) Total Bilirubin 0.4mg/dL (0.2-1.0) Aspartate Amino Transf (AST/SGOT) 61U/L (15-37) Alanine Aminotransferase (ALT/SGPT) 105U/L (16-63) Alkaline Phosphatase 50U/L (46-116) Troponin I Quantitative < 0.017ng/mL (0.000-0.055) < 0.017ng/mL (0.000-0.055) DX-Psq-G-Type Natriuretic Peptide 312pg/mL (0-124) Total Protein 5.6g/dL (6.4-8.2) Albumin 3.1g/dL (3.4-5.0) Albumin/Globulin Ratio 1.2 (1.0-1.7) Magnesium Level 2.3mg/dL (1.8-2.4) Triglycerides Level 64mg/dL (0-150) Cholesterol Level 168mg/dL (0-200) LDL Cholesterol, Calculated 88mg/dL (0-100) VLDL Cholesterol, Calculated 13mg/dL (0-40) Non-HDL Cholesterol Calculated 101mg/dL (0-129) HDL Cholesterol 67mg/dL (40-60) Cholesterol/HDL Ratio 2.5 Thyroid Stimulating Hormone (TSH) 0.982uIU/mL (0.358-3.74) Laboratory Tests Test 07/20/16 01:22 07/20/16 08:26 White Blood Count 6.8x10^3/uL (4.0-11.0) Red Blood Count 3.67x10^6/uL (4.30-5.70) Hemoglobin 10.9g/dL (13.0-17.5) Hematocrit 33.2% (39.0-53.0) Mean Corpuscular Volume 90fL (79-100) Mean Corpuscular Hemoglobin 30pg (25-35) Mean Corpuscular Hemoglobin Concent 33g/dL (31-37) Red Cell Distribution Width 15.0% (11.5-14.5) Platelet Count 235x10^3/uL (140-400) Neutrophils (%) (Auto) 52% (31-73) Lymphocytes (%) (Auto) 40% (24-48) Monocytes (%) (Auto) 7% (0-9) Eosinophils (%) (Auto) 1% (0-3) Basophils (%) (Auto) 1% (0-3) Neutrophils # (Auto) 3.5x10^3uL (1.8-7.7) Lymphocytes # (Auto) 2.7x10^3/uL (1.0-4.8) Monocytes # (Auto) 0.4x10^3/uL (0.0-1.1) Eosinophils # (Auto) 0.1x10^3/uL (0.0-0.7) Basophils # (Auto) 0.1x10^3/uL (0.0-0.2) Prothrombin Time 12.1SEC (11.7-14.0) Prothromb Time International Ratio 1.0 (0.8-1.1) Activated Partial Thromboplast Time 21SEC (24-38) Sodium Level 143mmol/L (136-145) Potassium Level 3.8mmol/L (3.5-5.1) Chloride Level 106mmol/L (98-107) Carbon Dioxide Level 30mmol/L (21-32) Anion Gap 7 (6-14) Blood Urea Nitrogen 23mg/dL (8-26) Creatinine 1.1mg/dL (0.7-1.3) Estimated GFR (Cockcroft-Gault) 70.0 BUN/Creatinine Ratio 21 (6-20) Glucose Level 107mg/dL (70-99) Calcium Level 8.7mg/dL (8.5-10.1) Total Bilirubin 0.4mg/dL (0.2-1.0) Aspartate Amino Transf (AST/SGOT) 61U/L (15-37) Alanine Aminotransferase (ALT/SGPT) 105U/L (16-63) Alkaline Phosphatase 50U/L (46-116) Troponin I Quantitative < 0.017ng/mL (0.000-0.055) < 0.017ng/mL (0.000-0.055) UK-Eii-T-Type Natriuretic Peptide 312pg/mL (0-124) Total Protein 5.6g/dL (6.4-8.2) Albumin 3.1g/dL (3.4-5.0) Albumin/Globulin Ratio 1.2 (1.0-1.7) Magnesium Level 2.3mg/dL (1.8-2.4) Triglycerides Level 64mg/dL (0-150) Cholesterol Level 168mg/dL (0-200) LDL Cholesterol, Calculated 88mg/dL (0-100) VLDL Cholesterol, Calculated 13mg/dL (0-40) Non-HDL Cholesterol Calculated 101mg/dL (0-129) HDL Cholesterol 67mg/dL (40-60) Cholesterol/HDL Ratio 2.5 Thyroid Stimulating Hormone (TSH) 0.982uIU/mL (0.358-3.74) VTE Prophylaxis Ordered VTE Prophylaxis Devices: Yes VTE Pharmacological Prophylaxi: Yes Assessment/Plan Assessment/Plan 1. Chest pain: likely from anxiety. Possible vasospastic component with use of cocaine yesterday. 2. CAD? C 06/2013 at [facility] neg. 3. Chronic NSAID use 4. Aortic tumor removal hx 5. HTN 6. Hx of polysubstance abuse: last cocaine use yesterday 7. COPD with tobaccoism 8. Hep C 9. Chronic anemia: 10. Hypothyroidism 11. non compliance plan: waiting for card to eval. no intervention, need TTE tmr however, pt has been very agitated, threatening to leave, evetually eat his breakfast. NINA hare was called. PT SIGNED AMA. PT said specifically to me , he wont take any meds. ELIF DELVALLE MD Jul 20, 2016 12:40
[2016-07-20] MEDS ORDERED: traZODone 100 MG TABLET. PO SCH (21:00)
[2016-07-20] MEDS ORDERED: AMITRIPTYLINE HCL 50 MG TABLET PO SCH (21:00)
== END 2016-07-20 11:25 | disposition left against medical advice (07) | DRG 918 ==
LOC: ER 01:11 → 2 NORTH 02:25
PROVIDERS: ADMIT Internal Medicine; ATTEND Internal Medicine
DX: T40.5X1A Poisoning by cocaine, accidental (unintentional), initial encounter (principal); I24.9 Acute ischemic heart disease, unspecified; F41.9 Anxiety disorder, unspecified; B19.20 Unspecified viral hepatitis C without hepatic coma; E03.9 Hypothyroidism, unspecified; I11.0 Hypertensive heart disease with heart failure; I25.10 Atherosclerotic heart disease of native coronary artery without angina pectoris; I50.9 Heart failure, unspecified; K21.9 Gastro-esophageal reflux disease without esophagitis; J44.9 Chronic obstructive pulmonary disease, unspecified; F17.210 Nicotine dependence, cigarettes, uncomplicated; F14.10 Cocaine abuse, uncomplicated; D64.9 Anemia, unspecified; G89.29 Other chronic pain; R13.10 Dysphagia, unspecified; M54.5 Low back pain; R61 Generalized hyperhidrosis; Z79.1 Long term (current) use of non-steroidal anti-inflammatories (NSAID); Z82.49 Family history of ischemic heart disease and other diseases of the circulatory system; Z86.73 Personal history of transient ischemic attack (TIA), and cerebral infarction without residual deficits; Z91.19 Patient's noncompliance with other medical treatment and regimen; Z95.1 Presence of aortocoronary bypass graft; Z85.89 Personal history of malignant neoplasm of other organs and systems; Z88.2 Allergy status to sulfonamides; Z79.899 Other long term (current) drug therapy
CPT/HCPCS: 36415; 71010; 80053; 80061; 83735; 83880; 84443; 84484; 85027; 85610; 85730; 93005; 96374; J2270; J7040; 99285-25

== ENCOUNTER 2016-08-30 10:46 | Emergency (ER) | payer OTHER ==
[~2016-08-30] VITALS: Ht 175.3 cm; Wt 64.4 kg
[~2016-08-30 10:46] MED LIST changes: +AMIT50TA PO; +ASPI-482 PO; +HYDR100V IJ; +HYDR25TA PO; +LISI2.5T PO; +NAPR-585 PO; +TRAZ100T12 PO
[2016-08-30 10:58] VITALS: BP 96/57
[2016-08-30] MEDS ORDERED: TRAM-29 PO (12:06)
[2016-08-30] MEDS ORDERED: AMOX875T PO (12:06)
[2016-08-30] MEDS ORDERED: TRIA15OI TP (12:06)
--- NOTE | 2016-08-30 12:07 | PHYS DOC ---
Past Medical History Past Medical History: Anxiety, CHF, COPD, Hypertension, OR Additional Past Medical Histor: DDD, pitutary brain tumor, liver problems, hep c,CHRONIC BACK PAIN Past Surgical History: Other Additional Past Surgical Histo: lower back surgery-2plates, aortic valve tumor removal Additional Information: 1-2 PACKS/DAY Alcohol Use: None Drug Use: None Adult General Chief Complaint Chief Complaint: DENTAL PROBLEM HPI HPI Patient is a 51 year old male with history of CHF hypertension, OR, COPD, anxiety who presents with left upper gum dental pain that began 3 days ago. Patient denies any fever or trismus. He states he has an appointment with dentist next week on Friday. Is also complaining of oak mite bites for weeks. Review of Systems Review of Systems Constitutional: Denies fever or chills [] Eyes: Denies change in visual acuity, redness, or eye pain [] HENT: left upper gum dental pain Musculoskeletal: Denies back pain or joint pain [] Integument: rash Neurologic: Denies headache, focal weakness or sensory changes [] Endocrine: Denies polyuria or polydipsia [] Allergies Allergies Allergies Coded Allergies Type Severity Reaction Last Updated Verified Sulfa (Sulfonamide Antibiotics) Allergy Intermediate 03/08/16 Yes Physical Exam Physical Exam Constitutional: Well developed, well nourished, no acute distress, non-toxic appearance. [] HENT: Normocephalic, atraumatic, bilateral external ears normal, oropharynx moist, no oral exudates, nose normal. [] Severe infected dental caries throughout his teeth. Most of his teeth are broken. Skin: Scattered areas of erythematous macular rash on bilateral upper extremities. Back: No tenderness, no CVA tenderness. [] Extremities: No tenderness, no cyanosis, no clubbing, ROM intact, no edema. [] Neurologic: Alert and oriented X 3, normal motor function, normal sensory function, no focal deficits noted. [] Psychologic: Affect normal, judgement normal, mood normal. [] Current Patient Data Vital Signs Vital Signs Date Time Temp Pulse Resp B/P (MAP) Pulse Ox O2 Delivery O2 Flow Rate FiO2 08/30/16 10:58 97.7 76 18 95 Room Air 97.7 EKG EKG [] Radiology/Procedures Radiology/Procedures [] Course & Med Decision Making Course & Med Decision Making Pertinent Labs and Imaging studies reviewed. (See chart for details) Patient is in the ED with complaints of dental pain. He does have severe infected dental caries. He states he has an appointment with his dentist next week on Friday. Discharged with amoxicillin and Ultram for pain. Who is also complaining of oak mite bites. Discharged with triamcinolone cream and Benadryl recommended. He is known for drug seeking behavior. Patient has been cursing in complaining stating he has been waiting for one hour and he could go to and be seen in 15 minutes. He is using very foul language. We did call security. 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 A second security system technician was called. He was given his discharge paperwork and escorted out. Dragon Disclaimer Dragon Disclaimer This electronic medical record was generated, in whole or in part, using a voice recognition dictation system. Departure Departure Impression: Primary Impression: Dentalgia Additional Impression: Insect bite Disposition: HOME, SELF-CARE Condition: STABLE Referrals: NO PCP (PCP) Patient Instructions: Dental Caries, Insect Bite, [id number] Additional Instructions: You were seen for dental pain and oak bite mites. Please follow up with your dentist next week Scripts Triamcinolone Acetonide (TRIAMCINOLONE ACETONIDE 0.1% OINT) 15 Gm Oint...g. 1 ANGELICA TP BID for WOUND CARE, #1 TUBE MIX WITH EUCERIN DIRECTED BY PHYSICIAN Prov: RIDGE STEELE APRN 08/30/16 Tramadol Hcl (ULTRAM) 50 Mg Tablet 1 TAB PO Q6HRS, #20 TAB Prov: RIDGE STEELE APRN 08/30/16 Amoxicillin (AMOXICILLIN) 875 Mg Tablet 1 TAB PO BID, #20 TAB Prov: RIDGE STEELE APRN 08/30/16 Problem Qualifiers Additional Impression: Insect bite Encounter type: initial encounter Qualified Codes: W57.XXXA - Bitten or stung by nonvenomous insect and other nonvenomous arthropods, initial encounter RIDGE STEELE APRN Aug 30, 2016 12:07
== END 2016-08-30 12:12 | disposition home or self-care (01) ==
LOC: ER 10:46
DX: K04.7 Periapical abscess without sinus (principal); K02.9 Dental caries, unspecified; S40.862A Insect bite (nonvenomous) of left upper arm, initial encounter; S40.861A Insect bite (nonvenomous) of right upper arm, initial encounter; F41.9 Anxiety disorder, unspecified; I11.0 Hypertensive heart disease with heart failure; I50.9 Heart failure, unspecified; J44.9 Chronic obstructive pulmonary disease, unspecified; I25.2 Old myocardial infarction; F17.200 Nicotine dependence, unspecified, uncomplicated; G89.29 Other chronic pain; Z88.2 Allergy status to sulfonamides; Z86.19 Personal history of other infectious and parasitic diseases; W57.XXXA Bitten or stung by nonvenomous insect and other nonvenomous arthropods, initial encounter; Y93.89 Activity, other specified; Y92.89 Other specified places as the place of occurrence of the external cause; Y99.8 Other external cause status
CPT/HCPCS: 99283

== ENCOUNTER 2016-11-17 14:05 | Emergency (ER) | payer OTHER ==
[~2016-11-17] VITALS: Ht 175.3 cm; Wt 62.1 kg
[~2016-11-17 14:05] MED LIST changes: +AMOX875T PO; +BENZ100C15 PO; -BENZ100C2 PO; -HYDR-2666 PO; -HYDR-2672 PO; +HYDR-2758 PO; +HYDR-2766 PO; +NITR0.4T22 SL; -NITR0.4T6 SL; +TRAM-48 PO; +TRIA15OI TP
[2016-11-17 14:19] VITALS: BP 97/55
[2016-11-17] MEDS ORDERED: IBUPROFEN 800 MG TABLET. PO ONE (15:00)
[2016-11-17] MEDS ORDERED: CYCLOBENZAPRINE 10 MG TABLET. PO ONE (15:00)
--- NOTE | 2016-11-17 15:01 | PHYS DOC ---
Past Medical History Past Medical History: Anxiety, Bipolar, Heart Disease Additional Past Medical Histor: brain tumor Past Surgical History: Other Additional Past Surgical Histo: back x 2, open heart x 2 Alcohol Use: None Drug Use: None Adult General Chief Complaint Chief Complaint: SHOULDER INJURY HPI HPI Patient is a 51 year old male presents to emergency department stating he is having right shoulder pain and discomfort after trying to put a starter in a Corvette this morning at 11:00. He has not taken any pain medication. Patient then states he is out of his pain medication as he had missed his doctors appointment. Patient with decreased ROM to the right shoulder, denies numbness or tingling to the right hand. Review of Systems Review of Systems Constitutional: Denies fever or chills [] Eyes: Denies change in visual acuity, redness, or eye pain [] HENT: Denies nasal congestion or sore throat [] Respiratory: Denies cough or shortness of breath [] Cardiovascular: No additional information not addressed in HPI [] GI: Denies abdominal pain, nausea, vomiting, bloody stools or diarrhea [] : Denies dysuria or hematuria [] Musculoskeletal: Right upper back pain and discomfort. Integument: Denies rash or skin lesions [] Neurologic: Denies headache, focal weakness or sensory changes [] Endocrine: Denies polyuria or polydipsia [] Current Medications Current Medications Current Medications Medications (Trade) Dose Ordered Sig/[facility] Start Time Stop Time Status Last Admin Dose Admin Cyclobenzaprine HCl (Flexeril) 10 mg 1X ONCE 11/17/16 15:00 11/17/16 15:01 DC 11/17/16 14:49 10 MG Ibuprofen (Motrin) 800 mg 1X ONCE 11/17/16 15:00 11/17/16 15:01 DC 11/17/16 14:49 800 MG Allergies Allergies Allergies Coded Allergies Type Severity Reaction Last Updated Verified Sulfa (Sulfonamide Antibiotics) Allergy Intermediate 03/08/16 Yes Physical Exam Physical Exam Constitutional: Well developed, well nourished, no acute distress, non-toxic appearance. [] HENT: Normocephalic, atraumatic, bilateral external ears normal, oropharynx moist, no oral exudates, nose normal. [] Eyes: PERRLA, EOMI, conjunctiva normal, no discharge. [] Neck: Normal range of motion, no tenderness, supple, no stridor. [] Cardiovascular:Heart rate regular rhythm, no murmur [] Lungs & Thorax: Bilateral breath sounds clear to auscultation [] Skin: Warm, dry, no erythema, no rash. [] Back: Right upper back pain. Decrease ROM noted to the right upper back. Extremities: No tenderness, no cyanosis, no clubbing, ROM intact, no edema. [] Neurologic: Alert and oriented X 3, normal motor function, normal sensory function, no focal deficits noted. [] Psychologic: Affect normal, judgement normal, mood normal. [] Current Patient Data Vital Signs Vital Signs Date Time Temp Pulse Resp B/P (MAP) Pulse Ox O2 Delivery O2 Flow Rate FiO2 11/17/16 14:19 97.8 95 18 97 Room Air 97.8 EKG EKG [] Radiology/Procedures Radiology/Procedures [][facility] [address] [place], [place] [id number] IMAGING REPORT Signed PATIENT: RAPHAEL BURROUGHS ACCOUNT: [id number] : 1965 LOCATION: ER AGE: 51 SEX: M EXAM STATUS: REG ER ORD. PHYSICIAN: ZENY ORTEGA APRN REASON: right shoulder pain PROCEDURE: SHOULDER 2+V RIGHT Indication: Right shoulder pain after working on car today. Technique: 3 views of the right shoulder are submitted for review. No comparison is available. Findings: There is no fracture or dislocation. There is no osseous lesion. Impression: Negative for fracture. DICTATED and SIGNED BY: GIOVANNA GARCIA MD DATE: 11/17/16 1512 CC: ZENY ORTEGA APRN; CYNDEE DAVIS MD; NON,STAFF ~ Course & Med Decision Making Course & Med Decision Making Pertinent Labs and Imaging studies reviewed. (See chart for details) X-rays were negative for any bony abnormalities. Patient will be provided with Flexeril to take at home. Recommended ibuprofen 800 mg every 8 hours with food stop taking few develop an upset stomach. Also recommended ice packs on 20 minutes off 20 minutes several times a day. Patient will be provided with signs and symptoms to return back to the emergency department. All questions and concerns answered at patient's bedside. Patient agrees with discharge structures regimens and follow-up recommendations. [] Dragon Disclaimer Dragon Disclaimer This electronic medical record was generated, in whole or in part, using a voice recognition dictation system. Departure Departure Impression: Primary Impression: Upper back pain on right side Disposition: HOME, SELF-CARE Condition: STABLE Referrals: CYNDEE DAVIS MD (PCP) Patient Instructions: Back Pain, Adult, [id number] Additional Instructions: Activity as tolerated Medication as prescribed Ibuprofen 800 mg every 8 hours with food, stop taking if you develop upset stomach Flexeril for muscle spasm this medication will cause drowsiness do not take if you need to be alert and oriented. Ice packs on 20 minutes and off 20 minutes several times a day Followup with primary care provider in 7-10 days Return to the emergency department as needed for signs and symptoms that become worse. Scripts Cyclobenzaprine Hcl (CYCLOBENZAPRINE HCL) 10 Mg Tablet 10 MG PO TID, #30 TAB Prov: ZENY ORTEGA APRN 11/17/16 ZENY ORTEGA APRN Nov 17, 2016 15:01
--- NOTE | 2016-11-17 15:15 | RAD ---
Indication: Right shoulder pain after working on car today. Technique: 3 views of the right shoulder are submitted for review. No comparison is available. Findings: There is no fracture or dislocation. There is no osseous lesion. Impression: Negative for fracture.
[2016-11-17] MEDS ORDERED: CYCL10TA2 PO (15:27)
== END 2016-11-17 15:47 | disposition home or self-care (01) ==
LOC: ER 14:05
DX: M54.6 Pain in thoracic spine (principal); M25.511 Pain in right shoulder; F31.9 Bipolar disorder, unspecified; Z98.890 Other specified postprocedural states; Z86.79 Personal history of other diseases of the circulatory system
CPT/HCPCS: 73030; 99284-25

== ENCOUNTER 2016-12-16 10:22 | Emergency (ER) | payer OTHER ==
[~2016-12-16] VITALS: Ht 175.3 cm; Wt 64.4 kg
[~2016-12-16 10:22] MED LIST changes: +OXYC-323 PO
[2016-12-16 10:30] VITALS: BP 112/68
--- NOTE | 2016-12-16 10:52 | PHYS DOC ---
Past Medical History Past Medical History: Anxiety, Bipolar, Heart Disease Additional Past Medical Histor: brain tumor Past Surgical History: Other Additional Past Surgical Histo: back x 2, open heart x 2 Alcohol Use: None Drug Use: None Adult General Chief Complaint Chief Complaint: LOWER BACK PAIN OR INJURY HPI HPI Patient is a 51 year old male presents the ED complaining of back pain 3 days. Patient states he has a history of chronic back pain. States that he has an appointment with his PCP this week but is out of his pain medicine. Denies any new symptoms. States pain is consistent with his chronic pain. Denies bowel/ bladder changes, trauma, injury or saddle anesthesia. Review of Systems Review of Systems Constitutional: Denies fever or chills [] Eyes: Denies change in visual acuity, redness, or eye pain [] HENT: Denies nasal congestion or sore throat [] Respiratory: Denies cough or shortness of breath [] Cardiovascular: No additional information not addressed in HPI [] GI: Denies abdominal pain, nausea, vomiting, bloody stools or diarrhea [] : Denies dysuria or hematuria [] Musculoskeletal: Complains of back pain. Integument: Denies rash or skin lesions [] Neurologic: Denies headache, focal weakness or sensory changes [] Endocrine: Denies polyuria or polydipsia [] Current Medications Current Medications Current Medications Medications (Trade) Dose Ordered Sig/Garrett Start Time Stop Time Status Last Admin Dose Admin Ketorolac Tromethamine (Toradol Im) 60 mg 1X ONCE 12/16/16 11:00 12/16/16 11:01 DC 12/16/16 11:02 60 MG Allergies Allergies Allergies Coded Allergies Type Severity Reaction Last Updated Verified Sulfa (Sulfonamide Antibiotics) Allergy Intermediate 03/08/16 Yes Physical Exam Physical Exam Constitutional: Well developed, well nourished, no acute distress, non-toxic appearance. [] HENT: Normocephalic, atraumatic, bilateral external ears normal, oropharynx moist, no oral exudates, nose normal. [] Eyes: PERRLA, EOMI, conjunctiva normal, no discharge. [] Neck: Normal range of motion, no tenderness, supple, no stridor. [] Cardiovascular:Heart rate regular rhythm, no murmur [] Lungs & Thorax: Bilateral breath sounds clear to auscultation [] Abdomen: Bowel sounds normal, soft, no tenderness, no masses, no pulsatile masses. [] Skin: Warm, dry, no erythema, no rash. [] Back: No midline tenderness, no midline tenderness, no overlying skin changes, full range of motion. No CVA tenderness. [] Extremities: No tenderness, no cyanosis, no clubbing, ROM intact, no edema. [] Neurologic: Alert and oriented X 3, normal motor function, normal sensory function, no focal deficits noted. [] Psychologic: Affect normal, judgement normal, mood normal. [] Current Patient Data Vital Signs Vital Signs Date Time Temp Pulse Resp B/P (MAP) Pulse Ox O2 Delivery O2 Flow Rate FiO2 12/16/16 10:30 97.6 55 16 97 Room Air 97.6 EKG EKG [] Radiology/Procedures Radiology/Procedures [] Course & Med Decision Making Course & Med Decision Making Pertinent Labs and Imaging studies reviewed. (See chart for details) []Will treat patient with analgesics for 2 days. Dispensed 8 pills. No new symptoms or imaging required. Patient able to ambulate without assistance. Discussed follow-up with PCP/orthopedic spine in 1-2 days. Provided contact information/education. Discussed reasons to return to the ED. Patient understands and agrees with plan. Dragon Disclaimer Dragon Disclaimer This electronic medical record was generated, in whole or in part, using a voice recognition dictation system. Departure Departure Impression: Primary Impression: Back pain Condition: IMPROVED Referrals: CYNDEE DAVIS MD (PCP) LUIS FERNANDO LARIOS II, MD Patient Instructions: Back Pain, Adult Scripts Hydrocodone/Apap 10-325 (NORCO 10-325 TABLET) 1 Each Tablet 1-2 TAB PO Q4-6HRS for PAIN, #8 TAB 0 Refills Prov: NARINDER LE 12/16/16 NARINDER LE Dec 16, 2016 10:52
[2016-12-16] MEDS ORDERED: HYDR-963 PO (10:57)
[2016-12-16] MEDS ORDERED: KETOROLAC 60 MG/2 ML INJ. IM ONE (11:00)
== END 2016-12-16 11:04 | disposition home or self-care (01) ==
LOC: ER 10:22
DX: M54.9 Dorsalgia, unspecified (principal); G89.29 Other chronic pain; F41.9 Anxiety disorder, unspecified; F31.9 Bipolar disorder, unspecified; I51.9 Heart disease, unspecified; Z95.1 Presence of aortocoronary bypass graft; Z88.2 Allergy status to sulfonamides
CPT/HCPCS: 96372; 99283; J1885

== ENCOUNTER 2017-04-14 16:43 | Emergency (ER) | payer OTHER | END 2017-04-14 17:42 | disposition home or self-care (01) | LOC: ER 16:43 | DX: S40.011A Contusion of right shoulder, initial encounter (principal); F31.9 Bipolar disorder, unspecified; Z95.1 Presence of aortocoronary bypass graft; Z98.890 Other specified postprocedural states; Z86.79 Personal history of other diseases of the circulatory system; Z88.2 Allergy status to sulfonamides; W00.0XXA Fall on same level due to ice and snow, initial encounter; Y93.89 Activity, other specified; Y99.8 Other external cause status; Y92.89 Other specified places as the place of occurrence of the external cause | CPT/HCPCS: 73030; 99284 ==

== ENCOUNTER 2017-05-28 12:57 | Emergency (ER) | payer OTHER ==
[2017-05-28 13:48] LABS: ADD MAN DIFF? NO
[2017-05-28 13:50] LABS: BASO % 0 % (0-3); EOS # 0.1 x10^3/uL (0.0-0.7); EOS % 1 % (0-3); HEMATOCRIT 27.4 % (39.0-53.0); HEMOGLOBIN 9.3 g/dL (13.0-17.5); LYMPH # 0.8 x10^3/uL (1.0-4.8); LYMPH % 12 % (24-48); MEAN CORPUSCULAR HEMOGLOBIN 30 pg (25-35); MEAN CORPUSCULAR HGB CONC 34 g/dL (31-37); MEAN CORPUSCULAR VOLUME 87 fL (79-100); MONO # 0.6 x10^3/uL (0.0-1.1); MONO % 9 % (0-9); NEUT # 5.3 x10^3uL (1.8-7.7); NEUT % 78 % (31-73); PLATELET COUNT 295 x10^3/uL (140-400); RED BLOOD COUNT 3.14 x10^6/uL (4.30-5.70); RED CELL DISTRIBUTION WIDTH 13.9 % (11.5-14.5); WHITE BLOOD COUNT 6.9 x10^3/uL (4.0-11.0)
[2017-05-28 14:01] LABS: INR 1.1 (0.8-1.1); PROTHROMBIN TIME PATIENT 13.7 SEC (11.7-14.0)
[2017-05-28 14:04] LABS: ANION GAP 7 (6-14); BLOOD UREA NITROGEN 30 mg/dL (8-26); CALCIUM 8.8 mg/dL (8.5-10.1); CARBON DIOXIDE 27 mmol/L (21-32); CHLORIDE 105 mmol/L (98-107); CREATININE 1.7 mg/dL (0.7-1.3); GFR 42.2; GLUCOSE 88 mg/dL (70-99); SODIUM 139 mmol/L (136-145)
[2017-05-28] MEDS: IV NORMAL SALINE 1000ML BAG 1,000 ML IV ×2 (14:04→14:05)
[2017-05-28 14:11] LABS: ALBUMIN 2.5 g/dL (3.4-5.0); ALK PHOS 74 U/L (46-116); ALT (SGPT) 76 U/L (16-63); AST (SGOT) 60 U/L (15-37); DIRECT BILIRUBIN 0.1 mg/dL (0.0-0.2); LIPASE 112 U/L (73-393); TOTAL BILIRUBIN 0.3 mg/dL (0.2-1.0)
[2017-05-28 14:13] LABS: TROPONINI < 0.017 ng/mL (0.000-0.055)
[2017-05-28 14:17] LABS: THYROID STIM HORMONE (TSH) 0.729 uIU/mL (0.358-3.74)
[2017-05-28 14:25] LABS: LACTIC ACID 2.4 mmol/L (0.4-2.0)
[2017-05-28 14:29] LABS: NT-PRO BNP 211 pg/mL (0-124)
[2017-05-28 14:29] LABS: CKMB INDEX 1.4 % (0-4); CKMB MASS 2.8 ng/mL (0.0-3.6); CREATINE KINASE 197 U/L (39-308)
[2017-05-28 14:44] LABS: BILIRUBIN,URINE SMALL (NEG); CLARITY,URINE CLEAR; COLOR,URINE AMBER; GLUCOSE,URINE NEGATIVE (NEG); NITRITE,URINE NEGATIVE (NEG); PROTEIN,URINE NEGATIVE (NEG-TRACE)
[2017-05-28 14:54] LABS: BARBITURATES NEG (NEG); BENZODIAZEPINES POS (NEG); CANNABINOIDS NEG (NEG); COCAINE POS (NEG); METHADONE NEG (NEG); OPIATES NEG (NEG); PHENCYCLIDINE NEG (NEG)
[2017-05-28 14:55] LABS: AMPHETAMINE/METHAMPHETAMINE NEG (NEG); ETHANOL, URINE NEG (NEG)
[2017-05-28 15:03] LABS: BACTERIA,URINE 0 /HPF (0-FEW); GRANULAR CASTS,URINE FEW /HPF; HYALINE CASTS, URINE MANY /HPF; RBC,URINE 0 /HPF (0-2); WBC,URINE 0 /HPF (0-4)
== END 2017-05-28 17:00 | disposition left against medical advice (07) ==
LOC: ER 17:00 → 6 SOUTH 15:40
DX: R55 Syncope and collapse (principal); R07.2 Precordial pain; R06.02 Shortness of breath; F41.9 Anxiety disorder, unspecified; F31.9 Bipolar disorder, unspecified; Z95.1 Presence of aortocoronary bypass graft; Z88.2 Allergy status to sulfonamides
CPT/HCPCS: 36415; 71045; 80048; 80076; 80307; 81001; 82553; 83605; 83690; 83735; 83880; 84443; 84484; 85025; 85610; 93005; 96360; 96361; 99285-25; J7030

== ENCOUNTER 2017-08-22 11:07 | Emergency (ER) | payer OTHER ==
[2017-08-22 11:51] LABS: ADD MAN DIFF? NO
[2017-08-22 11:58] LABS: BASO % 1 % (0-3); EOS # 0.2 x10^3/uL (0.0-0.7); EOS % 4 % (0-3); HEMATOCRIT 30.5 % (39.0-53.0); LYMPH # 1.1 x10^3/uL (1.0-4.8); LYMPH % 25 % (24-48); MEAN CORPUSCULAR HEMOGLOBIN 29 pg (25-35); MEAN CORPUSCULAR HGB CONC 33 g/dL (31-37); MEAN CORPUSCULAR VOLUME 87 fL (79-100); MONO # 0.7 x10^3/uL (0.0-1.1); MONO % 16 % (0-9); NEUT # 2.3 x10^3uL (1.8-7.7); NEUT % 55 % (31-73); PLATELET COUNT 428 x10^3/uL (140-400); RED BLOOD COUNT 3.51 x10^6/uL (4.30-5.70); RED CELL DISTRIBUTION WIDTH 15.3 % (11.5-14.5); WHITE BLOOD COUNT 4.2 x10^3/uL (4.0-11.0)
[2017-08-22 12:04] LABS: ANION GAP 7 (6-14); BLOOD UREA NITROGEN 23 mg/dL (8-26); CALCIUM 8.6 mg/dL (8.5-10.1); CARBON DIOXIDE 27 mmol/L (21-32); CHLORIDE 105 mmol/L (98-107); CREATININE 1.2 mg/dL (0.7-1.3); GFR 63.1; GLUCOSE 99 mg/dL (70-99); SODIUM 139 mmol/L (136-145)
[2017-08-22 12:14] LABS: TROPONINI < 0.017 ng/mL (0.000-0.055)
[2017-08-22 12:16] LABS: NT-PRO BNP 125 pg/mL (0-124)
[2017-08-22 12:28] LABS: INR 0.9 (0.8-1.1)
[2017-08-22 12:38] LABS: D-DIMER 0.93 ug/mlFEU (0.00-0.50)
[2017-08-22] MEDS: IV NORMAL SALINE 1000ML BAG 1,000 ML IV (13:00)
[2017-08-22] MEDS: HYDROcodone/APAP 5/325MG 1 TAB TABLET PO (13:00)
== END 2017-08-22 14:55 | disposition home or self-care (01) ==
LOC: ER 11:07
DX: R42 Dizziness and giddiness (principal); J44.9 Chronic obstructive pulmonary disease, unspecified; E78.00 Pure hypercholesterolemia, unspecified; R53.1 Weakness; I11.0 Hypertensive heart disease with heart failure; I50.9 Heart failure, unspecified; I25.10 Atherosclerotic heart disease of native coronary artery without angina pectoris; F41.9 Anxiety disorder, unspecified; Z86.73 Personal history of transient ischemic attack (TIA), and cerebral infarction without residual deficits; Z88.2 Allergy status to sulfonamides
CPT/HCPCS: 36415; 70450; 71045; 80048; 83880; 84484; 85025; 85379; 85610; 93005; 99285-25; J7030

== ENCOUNTER 2017-09-07 11:24 | Emergency (ER) | payer OTHER ==
[2017-09-07] MEDS: ONDANSETRON ODT 4 MG TAB.RAPDIS. PO (12:37)
[2017-09-07] MEDS: MORPHINE SULFATE 4 MG/ML DISP.SYRIN. IM (12:38)
== END 2017-09-07 12:55 | disposition home or self-care (01) ==
LOC: ER 12:55
DX: S39.012A Strain of muscle, fascia and tendon of lower back, initial encounter (principal); F31.9 Bipolar disorder, unspecified; E78.00 Pure hypercholesterolemia, unspecified; J44.9 Chronic obstructive pulmonary disease, unspecified; I11.0 Hypertensive heart disease with heart failure; I50.9 Heart failure, unspecified; Z95.5 Presence of coronary angioplasty implant and graft; Z88.2 Allergy status to sulfonamides; X50.9XXA Other and unspecified overexertion or strenuous movements or postures, initial encounter; Y93.89 Activity, other specified; Y99.8 Other external cause status; Y92.89 Other specified places as the place of occurrence of the external cause
CPT/HCPCS: 96372; 99283; J2270; Q0162

== ENCOUNTER 2017-10-07 21:10 | Emergency (ER) | payer OTHER ==
[2017-10-07] MEDS: oxyCODONE/APAP 5/325 1 TAB TABLET PO (21:42)
== END 2017-10-07 22:48 | disposition home or self-care (01) ==
LOC: ER 21:10
DX: M54.5 Low back pain (principal); F41.9 Anxiety disorder, unspecified; F31.9 Bipolar disorder, unspecified; I25.810 Atherosclerosis of coronary artery bypass graft(s) without angina pectoris; I11.0 Hypertensive heart disease with heart failure; I50.9 Heart failure, unspecified; J44.9 Chronic obstructive pulmonary disease, unspecified; Z88.2 Allergy status to sulfonamides; W22.8XXA Striking against or struck by other objects, initial encounter; Y93.89 Activity, other specified; Y99.8 Other external cause status; Y92.89 Other specified places as the place of occurrence of the external cause
CPT/HCPCS: 72100; 99284

== ENCOUNTER 2017-11-06 12:59 | Emergency (ER) | payer OTHER ==
[~2017-11-06] VITALS: Ht 175.3 cm; Wt 64.4 kg
[~2017-11-06 12:59] MED LIST changes: +ACET-704 PO; +BENZ-8 PO; -BENZ100C15 PO; -IBUP200T43 PO; +IBUP200T44 PO; +METH4TAB2 PO; +NAPR500T8 PO; +TRAZ-86 PO; -TRAZ100T12 PO
[2017-11-06 13:07] VITALS: BP 115/76
[2017-11-06] MEDS ORDERED: KETOROLAC 60 MG/2 ML INJ. IM ONE (13:30)
[2017-11-06] MEDS ORDERED: ORPHENADRINE CITRATE 60 MG/2 ML VIAL. IM ONE (13:30)
--- NOTE | 2017-11-06 13:33 | PHYS DOC ---
Past Medical History Past Medical History: Anxiety, Bipolar, CAD, CHF, COPD, High Cholesterol, Heart Disease, Hypertension Additional Past Medical Histor: BRAIN TUMOR Past Surgical History: Coronary Bypass Surgery, Lumbar Laminectomy Additional Past Surgical Histo: back x 2, open heart x 2 Alcohol Use: None Drug Use: None Adult General Chief Complaint Chief Complaint: BACK PAIN - NO INJURY HPI HPI Patient is a 52 year old female who presents to the emergency Department today with complaints of low back pain that radiates into his left buttock and left leg since 11:00 this morning. Patient states that his pain as a 10 out of 10 on the pain scale. He states his primary care doctor Dr. Davis used to prescribe him hydrocodone for his problems with chronic back pain. However, his doctor has refused to prescribe any narcotics for the last month. Patient has a history of degenerative disc disease states that he has had a L4 and L5 discectomy. He has had problems with sciatic nerve pain since having Surgery. Patient denies any saddle anesthesia, loss of bowel or bladder control, or any injury. He states he was getting out of a chair this morning when he noticed the pain in his back. Review of Systems Review of Systems Constitutional: Denies fever or chills [] HENT: Denies nasal congestion or sore throat [] Respiratory: Denies cough or shortness of breath [] Cardiovascular: Denies chest pain GI: Denies abdominal pain, nausea, vomiting, or diarrhea [] : Denies increased urinary frequency, anuria, dysuria or hematuria [] Musculoskeletal: Denies joint pain, reports low back pain that radiates to the left buttock and down the left leg [] Integument: Denies rash or skin lesions [] Neurologic: Denies headache, focal weakness or sensory changes [] All other systems were reviewed and found to be within normal limits, except as documented in this note. Current Medications Current Medications Current Medications Medications (Trade) Dose Ordered Sig/Garrett Start Time Stop Time Status Last Admin Dose Admin Ketorolac Tromethamine (Toradol Im) 30 mg 1X ONCE 11/06/17 13:30 11/06/17 13:31 DC 11/06/17 13:56 30 MG Orphenadrine Citrate (Norflex) 60 mg 1X ONCE 11/06/17 13:30 11/06/17 13:31 DC 11/06/17 13:58 60 MG Allergies Allergies Allergies Coded Allergies Type Severity Reaction Last Updated Verified Sulfa (Sulfonamide Antibiotics) Allergy Intermediate 08/06/17 Yes Physical Exam Physical Exam Constitutional: Well developed, well nourished, no acute distress, non-toxic appearance. [] HENT: Normocephalic, atraumatic, bilateral external ears normal, nose normal. [ ] Eyes: PERRLA, conjunctiva normal, no discharge. [] Neck: Normal range of motion, no tenderness, supple, no stridor. [] Cardiovascular:Heart rate regular rhythm, no murmur [] Lungs & Thorax: Bilateral breath sounds clear to auscultation with few scattered expiratory wheezes [] Skin: Warm, dry, no erythema, no rash. [] Back: No bony tenderness, no CVA tenderness. [] Extremities: No tenderness, no cyanosis, no clubbing, ROM intact, no edema. [] Neurologic: Alert and oriented X 3, normal motor function, normal sensory function, no focal deficits noted. [] Psychologic: Affect normal, judgement normal, mood normal. [] Current Patient Data Vital Signs Vital Signs Date Time Temp Pulse Resp B/P (MAP) Pulse Ox O2 Delivery O2 Flow Rate FiO2 11/06/17 13:07 97.6 77 20 115/76 (89) 99 Room Air 97.6 EKG EKG [] Radiology/Procedures Radiology/Procedures [] Course & Med Decision Making Course & Med Decision Making Pertinent Labs and Imaging studies reviewed. (See chart for details) Patient is 52-year-old male who presents to the emergency room with complaints of low back pain that radiates into his left leg. VSS. Patient history and clinical exam are consistent with exacerbation of chronic low back pain . Patient is treated as such. Patient was given a shot of Toradol 30 mg and Norflex 60 mg while in the emergency department. Prescription for Medrol Dosepak was written, and patient was advised that he needs to follow- up with his primary care doctor for management of his chronic pain issues. Patient verbalized an understanding of home care, prescription, follow-up, and return to ED instructions with no further questions or concerns. Patient ambulates with a steady gait in the department. Patient was upset that no narcotics were written. [] Dragon Disclaimer Dragon Disclaimer This electronic medical record was generated, in whole or in part, using a voice recognition dictation system. Departure Departure Impression: Primary Impression: Sciatic pain Additional Impression: Lumbar back pain Disposition: HOME, SELF-CARE Condition: STABLE Referrals: CYNDEE DAVIS MD (PCP) Patient Instructions: Back Pain, Adult, [id number], Sciatica, [id number] Additional Instructions: Fill prescription and use as directed. Follow-up with your primary care doctor for further evaluation and treatment of her chronic low back pain. Return to the emergency room if your symptoms worsen. Scripts Methylprednisolone (MEDROL) 4 Mg Tab.ds.pk 1 PKG PO UD, #1 PKG Prov: ODIN DEXTER WAITER/WAITRESS SECOND CLASS 11/06/17 Problem Qualifiers ODIN DEXTER WAITER/WAITRESS SECOND CLASS Nov 06, 2017 13:33
[2017-11-06] MEDS ORDERED: METH4TAB PO (14:01)
[2017-11-06] MEDS ORDERED: METH4TAB2 PO (14:05)
== END 2017-11-06 14:24 | disposition home or self-care (01) ==
LOC: ER 12:59
DX: M54.42 Lumbago with sciatica, left side (principal); G89.29 Other chronic pain; E78.00 Pure hypercholesterolemia, unspecified; I11.0 Hypertensive heart disease with heart failure; I50.9 Heart failure, unspecified; J44.9 Chronic obstructive pulmonary disease, unspecified; F31.9 Bipolar disorder, unspecified; M51.36 Other intervertebral disc degeneration, lumbar region; Z95.5 Presence of coronary angioplasty implant and graft; Z98.890 Other specified postprocedural states; Z88.2 Allergy status to sulfonamides
CPT/HCPCS: 96372; 99284; J1885; J2360

== ENCOUNTER 2017-12-01 10:02 | Emergency (ER) | payer OTHER ==
[~2017-12-01] VITALS: Ht 175.3 cm; Wt 63.5 kg
[~2017-12-01 10:02] MED LIST changes: +METH4TAB PO
[2017-12-01 10:32] VITALS: BP 93/58
[2017-12-01] MEDS ORDERED: ALPR0.5T PO (10:48)
[2017-12-01] MEDS ORDERED: HYDR-963 PO (10:48)
--- NOTE | 2017-12-01 10:55 | PHYS DOC ---
Past Medical History Past Medical History: Anxiety, Bipolar, CAD, CHF, COPD, High Cholesterol, Heart Disease, Hypertension Additional Past Medical Histor: BRAIN TUMOR Past Surgical History: Coronary Bypass Surgery, Lumbar Laminectomy Additional Past Surgical Histo: back x 2, open heart x 2 Additional Information: 1.3 PK/DAY Alcohol Use: None Drug Use: None Adult General Chief Complaint Chief Complaint: GENERALIZED BODY ACHES HPI HPI Patient is a 52 year old male who presents with acute on chronic low back pain. Patient has a chronic history of low back pain. He is status post low back surgery many years earlier. He does report that he has flares of his pain intermittently. He normally receives [place] 60 tablets monthly from his primary care physician but ran out of his medication earlier this month because of worsening pain. He has no fever or chills. No numbness or tingling. No focal complaints of weakness. Otherwise been at baseline health. Review of Systems Review of Systems Constitutional: Denies fever Eyes: Denies change in visual acuity HENT: Denies nasal congestion Respiratory: Denies cough or shortness of breath Cardiovascular: No additional information GI: Denies abdominal pain, nausea Musculoskeletal: Denies back pain Integument: Denies rash or skin lesions Neurologic: Denies headache, focal weakness or sensory changes All other systems were reviewed and found to be within normal limits, except as documented in this note. Current Medications Current Medications Current Medications Medications (Trade) Dose Ordered Sig/Garrett Start Time Stop Time Status Last Admin Dose Admin Acetaminophen/ Hydrocodone Bitart (Lortab 5/325) 2 tab 1X ONCE 12/01/17 11:00 12/01/17 11:01 DC 12/01/17 11:20 2 TAB Allergies Allergies Allergies Coded Allergies Type Severity Reaction Last Updated Verified Sulfa (Sulfonamide Antibiotics) Allergy Intermediate 08/06/17 Yes Physical Exam Physical Exam Constitutional: Well developed, well nourished, no acute distress, non-toxic appearance. HENT: Normocephalic, atraumatic, bilateral external ears normal, oropharynx moist Eyes: PERRLA, EOMI, conjunctiva normal Neck: Normal range of motion, no tenderness Cardiovascular:Heart rate regular rhythm, no murmur Lungs & Thorax: Bilateral breath sounds clear to auscultation Skin: Warm, dry, no erythema Back: No tenderness Extremities: No tenderness Neurologic: Alert and oriented X 3, 5/5 motor strength bilateral LE's. 2/4 DTR' s achilles and patellar levels Psychologic: Affect normal Current Patient Data Vital Signs Vital Signs Date Time Temp Pulse Resp B/P (MAP) Pulse Ox O2 Delivery O2 Flow Rate FiO2 12/01/17 11:20 18 98 Room Air 12/01/17 10:32 97.8 57 93/58 (70) 97.8 EKG EKG [] Radiology/Procedures Radiology/Procedures [] Course & Med Decision Making Course & Med Decision Making Pertinent Labs and Imaging studies reviewed. (See chart for details) Patient is evaluated in the emergency department primarily for refill of his pain medications. Patient has a follow-up appointment with his primary care physician 10 days from now. Patient is given small amount of medications to get him by until his follow-up appointment. He is given 1 dose of [place] in the ER. Patient is agreeable with this plan. He will come back to the ER for any new or worsening symptoms. Dragon Disclaimer Dragon Disclaimer This electronic medical record was generated, in whole or in part, using a voice recognition dictation system. Departure Departure Impression: Primary Impression: Low back pain Additional Impression: Medication refill Disposition: HOME, SELF-CARE Condition: GOOD Referrals: CYNDEE DAVIS MD (PCP) Patient Instructions: Chronic Pain Scripts Alprazolam (XANAX) 0.5 Mg Tablet 1 TAB PO DAILY, #24 TAB Prov: EDWARD DELGADO DO 12/01/17 Hydrocodone/Apap 10-325 (NORCO 10-325 TABLET) 1 Each Tablet 1 TAB PO BID for severe pain, #24 TAB Prov: EDWARD DELGADO DO 12/01/17 Problem Qualifiers EDWARD DELGADO DO Dec 01, 2017 10:55
[2017-12-01] MEDS ORDERED: HYDROcodone/APAP 5/325MG 1 TAB TABLET PO ONE (11:00)
== END 2017-12-01 11:19 | disposition home or self-care (01) ==
LOC: ER 10:02
DX: G89.29 Other chronic pain (principal); M54.5 Low back pain; Z76.0 Encounter for issue of repeat prescription; F31.9 Bipolar disorder, unspecified; J44.9 Chronic obstructive pulmonary disease, unspecified; E78.00 Pure hypercholesterolemia, unspecified; I11.0 Hypertensive heart disease with heart failure; I50.9 Heart failure, unspecified; I25.10 Atherosclerotic heart disease of native coronary artery without angina pectoris; Z95.5 Presence of coronary angioplasty implant and graft; Z98.890 Other specified postprocedural states; F17.200 Nicotine dependence, unspecified, uncomplicated; Z88.2 Allergy status to sulfonamides
CPT/HCPCS: 99283

== ENCOUNTER 2017-12-19 15:08 | Emergency (ER) | payer OTHER ==
[~2017-12-19] VITALS: Ht 175.3 cm; Wt 64.4 kg
[~2017-12-19 15:08] MED LIST changes: -METH-38 PO
[2017-12-19 17:23] VITALS: BP 104/61
--- NOTE | 2017-12-19 17:47 | PHYS DOC ---
Past Medical History Past Medical History: Anxiety, Bipolar, CAD, CHF, COPD, High Cholesterol, Heart Disease, Hypertension Additional Past Medical Histor: BRAIN TUMOR Past Surgical History: Coronary Bypass Surgery, Lumbar Laminectomy Additional Past Surgical Histo: back x 2, open heart x 2 Alcohol Use: None Additional Information: former alcoholic, clean since 2006. Drug Use: None Adult General Chief Complaint Chief Complaint: BACK PAIN OR INJURY HPI HPI Patient is a 52 year old male with a history of a bad back with 3 prior lumbar surgeries who states that earlier today he helped a neighbor cut down some tree limbs and is now having increased back pain. He reports he has been on [place] 10 /325mg for his pain but missed his last PCP appt and does not currently have any medication. I informed pt that I would give him a pain pill here in ER but that I cannot dispense narcotics for home for him. He became angry that he has been here 3 hours and this is all I can do for him. I told him we could do imaging but with this mechanism, I do not think they will show us much and he agrees and declined imaging. I told him I could write him for a muscle relaxer and some steroids but he said I could keep those scripts because "they won't do shit for him". I explained that our records show he has rcvd narcotics from this ER already this month on and that he will need to call his PCP and see if he can be seen sooner then his scheduled appt. Review of Systems Review of Systems Constitutional: Denies fever or chills HENT: Denies nasal congestion or sore throat Respiratory: Denies cough or shortness of breath Cardiovascular: Denies chest pain. GI: Denies abdominal pain, nausea, vomiting, bloody stools or diarrhea. Musculoskeletal: Reports back pain with no radiation down legs. Integument: Denies rash or skin lesions Neurologic: Denies headache, focal weakness or sensory changes. All other systems were reviewed and found to be within normal limits, except as documented in this note. Current Medications Current Medications Current Medications Medications (Trade) Dose Ordered Sig/Garrett Start Time Stop Time Status Last Admin Dose Admin Acetaminophen/ Hydrocodone Bitart (Lortab 10/325) 1 tab 1X ONCE 12/19/17 18:00 12/19/17 18:01 DC Allergies Allergies Allergies Coded Allergies Type Severity Reaction Last Updated Verified Sulfa (Sulfonamide Antibiotics) Allergy Intermediate 08/06/17 Yes Physical Exam Physical Exam Constitutional: Well developed, well nourished, no acute distress, non-toxic appearance. HENT: Normocephalic, atraumatic, bilateral external ears normal, oropharynx moist, no oral exudates, nose normal. Neck: Normal range of motion, no tenderness, supple, no stridor. Cardiovascular:Heart rate regular rhythm, no murmur Lungs & Thorax: Bilateral breath sounds clear to auscultation Abdomen: Bowel sounds normal, soft, no tenderness, no masses, no pulsatile masses. Skin: Warm, dry, no erythema, no rash. Back: Lumbar pain with palpation, surgical incision intact. Extremities: No tenderness, no cyanosis, no clubbing, ROM intact, no edema. No pain or numbness in legs. Neurologic: Alert and oriented X 3, normal motor function, normal sensory function, no focal deficits noted. Pt ambulatory in the ER. No signs of cauda equina syndrome. Psychologic: Affect normal, judgement normal, mood normal. Current Patient Data Vital Signs Vital Signs Date Time Temp Pulse Resp B/P (MAP) Pulse Ox O2 Delivery O2 Flow Rate FiO2 12/19/17 17:23 97.8 63 16 104/61 (75) 100 Room Air 97.8 EKG EKG [] Radiology/Procedures Radiology/Procedures [] Course & Med Decision Making Course & Med Decision Making Pt to rest and ice/heat therapy and call PCP on Friday morning. Pt was appropriate with the nurse at discharge and apologized for his outburst earlier. Dragon Disclaimer Dragon Disclaimer This electronic medical record was generated, in whole or in part, using a voice recognition dictation system. Departure Departure Impression: Primary Impression: Chronic back pain Disposition: HOME, SELF-CARE Condition: IMPROVED Referrals: CYNDEE DAVIS MD (PCP) Patient Instructions: Back Pain, Adult, [id number] Additional Instructions: Heating pad, rest and close follow up with your primary care doctor. Scripts Methocarbamol (ROBAXIN-750) 750 Mg Tablet 1 TAB PO BID, #15 TAB Prov: LESLEE JACKSON 12/19/17 Methylprednisolone (MEDROL) 4 Mg Tab.ds.pk 1 PKG PO UD, #1 PKG Prov: LESLEE JACKSON 12/19/17 LESLEE JACKSON Dec 19, 2017 17:47
[2017-12-19] MEDS ORDERED: METH4TAB2 PO (17:51)
[2017-12-19] MEDS ORDERED: METH-38 PO (17:51)
[2017-12-19] MEDS ORDERED: HYDROcodone/APAP 10/325 1 TAB TABLET PO ONE (18:00)
== END 2017-12-19 18:11 | disposition home or self-care (01) ==
LOC: ER 15:08
DX: G89.29 Other chronic pain (principal); M54.5 Low back pain; F31.9 Bipolar disorder, unspecified; I11.0 Hypertensive heart disease with heart failure; I50.9 Heart failure, unspecified; I25.10 Atherosclerotic heart disease of native coronary artery without angina pectoris; E78.00 Pure hypercholesterolemia, unspecified; J44.9 Chronic obstructive pulmonary disease, unspecified; Z95.5 Presence of coronary angioplasty implant and graft; Z98.890 Other specified postprocedural states
CPT/HCPCS: 99283

== ENCOUNTER → 2017-12-19 | Outpatient (CLI) | payer OTHER ==
[2017-12-01 10:32] VITALS: BP 93/58
[~2017-12-19] MED LIST changes: +METH-38 PO
--- NOTE | 2017-12-19 16:00 | RAD ---
CT CHEST WO CONTRAST Indication: Lung nodules, cough, shortness of air Technique: Noncontrast CT imaging was performed of the chest, multiplanar reconstruction images submitted. One or more of the following individualized dose reduction techniques were utilized for this examination: 1. Automated exposure control 2. Adjustment of the mA and/or kV according to patient size 3. Use of iterative reconstruction technique. Comparison: August 02, 2017 Findings: As best seen axial image 24 series 2, there is persistent somewhat spiculated focus of nodularity of the left upper lobe although overall smaller, greatest dimension about 4 mm versus previously about 8 to 9 mm. As best seen on axial image 16 series 2, there is a somewhat spiculated left upper lobe nodule about 5 to 6 mm, apparently new. However other previously seen foci of nodularity of the left upper lobe are either smaller or not seen. For example left upper lobe nodule axial image 23 now measures about 3 mm versus previously about 6 mm. Tiny 2 mm left upper lobe nodule axial image 25 is unchanged. There is likely mild atelectasis of the lingula near the lung base. There is emphysema. There is no pericardial or pleural effusion or pneumothorax. There is coronary calcification. There is been median sternotomy. Thoracic aortic caliber is within normal limits. There are some small noncalcified mediastinal nodes, no new significant lymphadenopathy. There are again some calcified bilateral hilar and mediastinal nodes. IMPRESSION: 1. Previously seen left upper lobe nodules are mostly either smaller or resolved although a new small spiculated left upper lobe nodule about 5 to 6 mm. As there is a new nodule and given spiculated morphology, continued follow-up such as in 6 months recommended. 2. There is emphysema. 3. There is coronary calcification. Electronically signed by: Bakari Garcia MD (12/19/2017 3:56 PM) [id number]
== END | disposition home or self-care (01) ==
LOC: CT 11:32
PROVIDERS: ATTEND Internal Medicine Critical Care Medicine
DX: J43.9 Emphysema, unspecified (principal); I25.10 Atherosclerotic heart disease of native coronary artery without angina pectoris; R91.8 Other nonspecific abnormal finding of lung field; R59.0 Localized enlarged lymph nodes; I25.2 Old myocardial infarction; I11.0 Hypertensive heart disease with heart failure; I50.31 Acute diastolic (congestive) heart failure; E11.9 Type 2 diabetes mellitus without complications; E78.00 Pure hypercholesterolemia, unspecified; E03.9 Hypothyroidism, unspecified; Z85.038 Personal history of other malignant neoplasm of large intestine; Z86.011 Personal history of benign neoplasm of the brain; Z86.79 Personal history of other diseases of the circulatory system; Z86.19 Personal history of other infectious and parasitic diseases; Z86.74 Personal history of sudden cardiac arrest; Z86.2 Personal history of diseases of the blood and blood-forming organs and certain disorders involving the immune mechanism; Z86.73 Personal history of transient ischemic attack (TIA), and cerebral infarction without residual deficits
CPT/HCPCS: 71250

== ENCOUNTER 2018-01-06 12:38 | Emergency (ER) | payer OTHER ==
[~2018-01-06] VITALS: Ht 175.3 cm; Wt 64.4 kg
[~2018-01-06 12:38] MED LIST changes: +METH-38 PO
[2018-01-06 13:10] VITALS: BP 110/59
[2018-01-06] MEDS ORDERED: HYDROcodone/APAP 5/325MG 1 TAB TABLET PO ONE (13:15)
[2018-01-06] MEDS ORDERED: IBUP-1060 PO (13:26)
--- NOTE | 2018-01-06 13:27 | PHYS DOC ---
Past Medical History Past Medical History: Anxiety, Bipolar, CAD, CHF, COPD, High Cholesterol, Heart Disease, Hypertension Additional Past Medical Histor: BRAIN TUMOR,CHRONIC BACK PAIN Past Surgical History: Coronary Bypass Surgery, Lumbar Laminectomy Additional Past Surgical Histo: back x 2, open heart x 2 Alcohol Use: None Drug Use: None Adult General Chief Complaint Chief Complaint: MECHANICAL FALL HPI HPI Patient is a 52 year old male presents to the ED complaining of fall just prior to arrival. History of chronic back pain. Describes the pain as sharp. Rates the pain as 5/10. States he slipped while walking outside in the rain. Denies head/neck injury, LOC, vision changes, bowel/bladder changes, saddle anesthesia, radiating pain, dizziness, weakness, fever, use of blood thinners, symptoms prior to fall, chest pain or shortness of breath. Review of Systems Review of Systems Constitutional: Denies fever or chills [] Eyes: Denies change in visual acuity, redness, or eye pain [] HENT: Denies nasal congestion or sore throat [] Respiratory: Denies cough or shortness of breath [] Cardiovascular: No additional information not addressed in HPI [] GI: Denies abdominal pain, nausea, vomiting, bloody stools or diarrhea [] : Denies dysuria or hematuria [] Musculoskeletal: Complains of back pain. Denies joint pain [] Integument: Denies rash or skin lesions [] Neurologic: Denies headache, focal weakness or sensory changes [] All other systems were reviewed and found to be within normal limits, except as documented in this note. Current Medications Current Medications Current Medications Medications (Trade) Dose Ordered Sig/Garrett Start Time Stop Time Status Last Admin Dose Admin Acetaminophen/ Hydrocodone Bitart (Lortab 5/325) 1 tab 1X ONCE 01/06/18 13:15 01/06/18 13:16 DC 01/06/18 13:39 1 TAB Allergies Allergies Allergies Coded Allergies Type Severity Reaction Last Updated Verified Sulfa (Sulfonamide Antibiotics) Allergy Intermediate 08/06/17 Yes Physical Exam Physical Exam Constitutional: Well developed, well nourished, no acute distress, non-toxic appearance. [] HENT: Normocephalic, atraumatic Eyes: PERRLA, EOMI, conjunctiva normal, no discharge. [] Neck: Normal range of motion, no tenderness, supple, no stridor. [] Cardiovascular:Heart rate regular rhythm, no murmur [] Lungs & Thorax: Bilateral breath sounds clear to auscultation [] Abdomen: Bowel sounds normal, soft, no tenderness, no masses, no pulsatile masses. [] Skin: Warm, dry, no erythema, no rash. [] Back: No midline tenderness, FROM. NV intact. No overlying skin changs. no CVA tenderness. [] Extremities: No tenderness, no cyanosis, no clubbing, ROM intact, no edema. [] Neurologic: Alert and oriented X 3, normal motor function, normal sensory function, no focal deficits noted. [] Psychologic: Affect normal, judgement normal, mood normal. [] Current Patient Data Vital Signs Vital Signs Date Time Temp Pulse Resp B/P (MAP) Pulse Ox O2 Delivery O2 Flow Rate FiO2 01/06/18 13:10 98.1 75 20 110/59 (76) 98 Room Air 98.1 EKG EKG [] Radiology/Procedures Radiology/Procedures [] Course & Med Decision Making Course & Med Decision Making Pertinent Labs and Imaging studies reviewed. (See chart for details) []No bony tenderness. No x-ray warranted. Patient able to ambulate without assistance. No focal neural deficits. Discussed symptomatic treatment outpatient. Discussed follow-up with orthopedics if pain persists. Discussed reasons to return to the ED. Patient understands and agrees with plan. Dragon Disclaimer Dragon Disclaimer This electronic medical record was generated, in whole or in part, using a voice recognition dictation system. Departure Departure Impression: Primary Impression: Back pain Disposition: 01 HOME, SELF-CARE Condition: IMPROVED Referrals: CYNDEE DAVIS MD (PCP) LUIS FERNANDO LARIOS II, MD Patient Instructions: Back Pain, Adult Scripts Ibuprofen (IBUPROFEN) 800 Mg Tablet 800 MG PO PRN Q6HRS PRN for INFLAMMATION, #14 TAB Prov: NARINDER LE 01/06/18 NARINDER LE Jan 06, 2018 13:27
== END 2018-01-06 13:41 | disposition home or self-care (01) ==
LOC: ER 12:38
DX: G89.29 Other chronic pain (principal); M54.9 Dorsalgia, unspecified; G89.11 Acute pain due to trauma; F31.9 Bipolar disorder, unspecified; I25.10 Atherosclerotic heart disease of native coronary artery without angina pectoris; I11.0 Hypertensive heart disease with heart failure; I50.9 Heart failure, unspecified; J44.9 Chronic obstructive pulmonary disease, unspecified; E78.00 Pure hypercholesterolemia, unspecified; Z95.1 Presence of aortocoronary bypass graft; Z98.890 Other specified postprocedural states; Z88.2 Allergy status to sulfonamides; W01.0XXA Fall on same level from slipping, tripping and stumbling without subsequent striking against object, initial encounter; Y93.89 Activity, other specified; Y92.89 Other specified places as the place of occurrence of the external cause; Y99.8 Other external cause status
CPT/HCPCS: 99282

== ENCOUNTER 2018-02-18 10:49 | Emergency (ER) | payer OTHER ==
[~2018-02-18] VITALS: Ht 175.3 cm; Wt 63.0 kg
[~2018-02-18 10:49] MED LIST changes: +HYDR-3135 PO; +HYDR-3164 PO; -HYDR-963 PO; -HYDR-971 PO; +IBUP-1060 PO
[2018-02-18 11:00] VITALS: BP 103/55
--- NOTE | 2018-02-18 11:17 | PHYS DOC ---
Past Medical History Past Medical History: Anxiety, Bipolar, CAD, CHF, COPD, High Cholesterol, Heart Disease, Hypertension Additional Past Medical Histor: BRAIN TUMOR,CHRONIC BACK PAIN Past Surgical History: Coronary Bypass Surgery, Lumbar Laminectomy Additional Past Surgical Histo: back x 2, open heart x 2 Alcohol Use: None Drug Use: None Adult General Chief Complaint Chief Complaint: WRIST PAIN HPI HPI Patient is a 52 year old male who presents to the emergency room today with complaints of right wrist and right fourth digit finger pain after trip and fall this morning. Patient denies any head injury, loss of consciousness, neck pain, back pain, or pelvis pain after the fall. Patient states he is taking a gram of Tylenol at 1:00 this morning and again at 8:00 this morning that has not helped relieve his pain. Currently he reports his pain as a 10 out of 10 on the pain scale. He denies any numbness, tingling, or weakness of the affected extremity. Review of Systems Review of Systems Constitutional: Denies fever or chills [] Musculoskeletal: see HPI Integument: Denies rash or skin lesions [] Neurologic: Denies headache, focal weakness or sensory changes [] All other systems were reviewed and found to be within normal limits, except as documented in this note. Current Medications Current Medications Current Medications Medications (Trade) Dose Ordered Sig/Garrett Start Time Stop Time Status Last Admin Dose Admin Naproxen (Naprosyn) 500 mg 1X STAT 02/18/18 12:32 02/18/18 12:33 UNV Allergies Allergies Allergies Coded Allergies Type Severity Reaction Last Updated Verified Sulfa (Sulfonamide Antibiotics) Allergy Intermediate 08/06/17 Yes Physical Exam Physical Exam Constitutional: Well developed, well nourished, no acute distress, non-toxic appearance. [] HENT: Normocephalic, atraumatic, bilateral external ears normal, oropharynx moist, no oral exudates, nose normal. [] Eyes: PERRLA, conjunctiva normal, no discharge. [] Neck: Normal range of motion, no tenderness, supple, no stridor. [] Skin: Warm, dry, no erythema, no rash. [] Extremities :No cyanosis, no clubbing, ROM intact, no edema; R wrist tenderness to palpation, R 4th digit tenderness to palpation, with limited ROM of R wrist and R 4th digit due to pain, no crepitus or deformities.[] Neurologic: Alert and oriented X 3, normal motor function, normal sensory function, no focal deficits noted. [] Psychologic: Affect normal, judgement normal, mood normal. [] Current Patient Data Vital Signs Vital Signs Date Time Temp Pulse Resp B/P (MAP) Pulse Ox O2 Delivery O2 Flow Rate FiO2 02/18/18 11:00 97.7 67 16 103/55 (71) 97 Room Air 97.7 EKG EKG [] Radiology/Procedures Radiology/Procedures PROCEDURE: WRIST 3V RIGHT Right wrist, 3 views, 02/18/2018: HISTORY: Fall, pain No wrist fracture or dislocation is identified. The soft tissues are unremarkable. IMPRESSION: No acute bony abnormality is detected. Right little finger, 3 views, 02/18/2018: No acute fracture or dislocation is identified. There is a 5 x 0.5 mm curvilinear radiopacity projected over the soft tissues along the ulnar margin of the proximal phalanx suggesting a radiopaque foreign body such as a needle fragment. IMPRESSION: 1. No acute bony abnormality is detected. 2. Radiopaque foreign body in the soft tissues as described above. [] Course & Med Decision Making Course & Med Decision Making Pertinent Labs and Imaging studies reviewed. (See chart for details) Dx: R wrist sprain, finger contusion of R ring finger Pt was given a naproxen in ER. Xrays of wrist and 4th digit are normal. There was no acute injury to the 5th digit and no obvious wound. Pt was placed in velcro wrist splint and an aluminum finger splint. Prescription written for ibuprofen 600 mg QID prn. Follow up with Dr. Maharaj or PCP if symptoms persist return to ER if symptoms worsen. [] Dragon Disclaimer Dragon Disclaimer This electronic medical record was generated, in whole or in part, using a voice recognition dictation system. Departure Departure Impression: Primary Impression: Fall from standing Additional Impressions: Right wrist pain Right wrist sprain Contusion of right ring finger without damage to nail, initial encounter Disposition: 01 HOME, SELF-CARE Condition: STABLE Referrals: CYNDEE DAIVS MD (PCP) WERO MAHARAJ MD Patient Instructions: Contusion, [id number], Wrist Pain, [id number] Additional Instructions: Fill prescription(s) and use as directed. Recommend application of ice, elevation, and rest of affected extremity. Wear the splint that was placed until follow up appointment with PCP or Dr. Maharaj. Return to the ER if your symptoms worsen. Scripts Ibuprofen (IBUPROFEN) 600 Mg Tablet 600 MG PO PRN Q6HRS PRN for PAIN for 7 Days, #30 TAB 0 Refills Prov: ODIN DEXTER [employer] TE[employer] 02/18/18 Problem Qualifiers Primary Impression: Fall from standing Encounter type: initial encounter Qualified Codes: W19.XXXA - Unspecified fall, initial encounter Additional Impressions: Right wrist sprain Encounter type: initial encounter Qualified Codes: S63.501A - Unspecified sprain of right wrist, initial encounter ODIN DEXTER [employer] Feb 18, 2018 11:17
--- NOTE | 2018-02-18 11:57 | RAD ---
Right wrist, 3 views, 02/18/2018: HISTORY: Fall, pain No wrist fracture or dislocation is identified. The soft tissues are unremarkable. IMPRESSION: No acute bony abnormality is detected. Right little finger, 3 views, 02/18/2018: No acute fracture or dislocation is identified. There is a 5 x 0.5 mm curvilinear radiopacity projected over the soft tissues along the ulnar margin of the proximal phalanx suggesting a radiopaque foreign body such as a needle fragment. IMPRESSION: 1. No acute bony abnormality is detected. 2. Radiopaque foreign body in the soft tissues as described above. Electronically signed by: Kam Mccurdy MD (02/18/2018 11:54 AM) [facility]
--- NOTE | 2018-02-18 11:57 | RAD ---
Right wrist, 3 views, 02/18/2018: HISTORY: Fall, pain No wrist fracture or dislocation is identified. The soft tissues are unremarkable. IMPRESSION: No acute bony abnormality is detected. Right little finger, 3 views, 02/18/2018: No acute fracture or dislocation is identified. There is a 5 x 0.5 mm curvilinear radiopacity projected over the soft tissues along the ulnar margin of the proximal phalanx suggesting a radiopaque foreign body such as a needle fragment. IMPRESSION: 1. No acute bony abnormality is detected. 2. Radiopaque foreign body in the soft tissues as described above. Electronically signed by: Kam Mccurdy MD (02/18/2018 11:54 AM) [facility]
[2018-02-18] MEDS ORDERED: NAPROXEN 500 MG TABLET PO STA (12:32)
[2018-02-18] MEDS ORDERED: IBUP-1007 PO (12:40)
== END 2018-02-18 12:46 | disposition home or self-care (01) ==
LOC: ER 10:49
DX: S63.501A Unspecified sprain of right wrist, initial encounter (principal); S60.041A Contusion of right ring finger without damage to nail, initial encounter; F31.9 Bipolar disorder, unspecified; I11.0 Hypertensive heart disease with heart failure; I50.9 Heart failure, unspecified; E78.00 Pure hypercholesterolemia, unspecified; G89.29 Other chronic pain; J44.9 Chronic obstructive pulmonary disease, unspecified; Z95.5 Presence of coronary angioplasty implant and graft; I25.10 Atherosclerotic heart disease of native coronary artery without angina pectoris; Z98.890 Other specified postprocedural states; Z88.2 Allergy status to sulfonamides; W01.0XXA Fall on same level from slipping, tripping and stumbling without subsequent striking against object, initial encounter; Y93.89 Activity, other specified; Y92.89 Other specified places as the place of occurrence of the external cause; Y99.8 Other external cause status
CPT/HCPCS: 73110; 73140; 99283

== ENCOUNTER 2018-04-21 10:38 | Emergency (ER) | payer OTHER ==
[~2018-04-21] VITALS: Ht 175.3 cm; Wt 64.4 kg
[~2018-04-21 10:38] MED LIST changes: -HYDR-2758 PO; +HYDR-2761 PO; -HYDR-2766 PO; +HYDR-2769 PO; +IBUP-1007 PO; -OXYC-323 PO; +OXYC1TAB15 PO
[2018-04-21 10:47] VITALS: BP 103/67
[2018-04-21] MEDS ORDERED: HYDROcodone/APAP 10/325 1 TAB TABLET PO ONE (11:15)
[2018-04-21] MEDS ORDERED: oxyCODONE/APAP 10/325 1 TAB TABLET PO ONE (11:15)
--- NOTE | 2018-04-21 11:15 | PHYS DOC ---
Past Medical History Past Medical History: Anxiety, Bipolar, CAD, CHF, COPD, High Cholesterol, Heart Disease, Hypertension Additional Past Medical Histor: BRAIN TUMOR,CHRONIC BACK PAIN Past Surgical History: Coronary Bypass Surgery, Lumbar Laminectomy Additional Past Surgical Histo: back x 2, open heart x 2 Smokin Pack Per Day Alcohol Use: None Drug Use: None Adult General Chief Complaint Chief Complaint: HAND PROBLEM HPI HPI Patient is a 53 YO M that is presenting with right hand pain that began yesterday when he fell walking his dog. Patient denies trauma to his head or LOC. He states that the pain is constant, sharp, radiates up into his forearm, and is an 8 or a 9. Patient denies numbness or tingling in his fingers. Patient has a past medical history of chronic back pain and is currently taking hydrocodone 10/325, but ran out of his prescription 2 weeks ago and states that he can't get back into his family medicine doctor until May. Review of Systems Review of Systems Constitutional: Denies fever or chills [] Respiratory: Denies cough or shortness of breath [] Cardiovascular: Denies chest pain or shortness of breath [] GI: Denies abdominal pain, nausea, vomiting, or diarrhea [] Musculoskeletal: Denies back pain or joint pain [] Integument: Denies rash or skin lesions [] Neurologic: Denies headache, focal weakness or sensory changes [] Complete systems were reviewed and found to be within normal limits, except as documented in this note. Current Medications Current Medications Current Medications Medications (Trade) Dose Ordered Sig/Garrett Start Time Stop Time Status Last Admin Dose Admin Acetaminophen/ Hydrocodone Bitart (Lortab 10/325) 1 tab 1X ONCE 04/21/18 11:15 04/21/18 11:16 DC 04/21/18 11:25 1 TAB Oxycodone/ Acetaminophen (Percocet 10/325) 1 tab 1X ONCE 04/21/18 11:15 04/21/18 11:16 Cancel Allergies Allergies Allergies Coded Allergies Type Severity Reaction Last Updated Verified Sulfa (Sulfonamide Antibiotics) Allergy Intermediate 08/06/17 Yes Physical Exam Physical Exam Constitutional: Well developed, well nourished, no acute distress, non-toxic appearance. [] HENT: Normocephalic, atraumatic, nose normal. [] Eyes: Conjunctiva normal, no discharge. [] Neck: Normal range of motion, no tenderness, supple. [] Cardiovascular: Heart rate regular rhythm, no murmur [] Lungs & Thorax: Bilateral breath sounds clear to auscultation [] Skin: Warm, dry, no erythema, no rash. [] Back: No tenderness, no CVA tenderness. [] Extremities: Tenderness to palpation at the base of the right 1st metacarpal, decreased ROM of the right wrist in all directions, full motor and intact sensation of B/L hands, no edema or ecchymosis of the right hand [] Neurologic: Alert and oriented X 3, no focal deficits noted. [] Psychologic: Affect normal, judgement normal, mood normal. [] Current Patient Data Vital Signs Vital Signs Date Time Temp Pulse Resp B/P (MAP) Pulse Ox O2 Delivery O2 Flow Rate FiO2 04/21/18 11:25 16 99 Room Air 04/21/18 10:47 97.7 66 103/67 (79) 97.7 EKG EKG [] Radiology/Procedures Radiology/Procedures 3 view hand x-ray @1056 No acute pathology preliminary read by ED physician Course & Med Decision Making Course & Med Decision Making Pertinent Labs and Imaging studies reviewed. (See chart for details) Patient is a 53 YO M that presented with right hand pain after a fall. Patient denies head trauma or LOC. X-ray was negative for acute pathology. Wrist was bandaged with an ARTUR wrap. Patient was educated on at home management. Pain was addressed. Discussed possibility of follow-up with orthopedic surgeon if the pain or decreased ROM persists. Patient stable for discharge with outpatient follow-up with PCP/orthopedic surgeon. Discussed findings and plan with patient, who acknowledge understanding and agreement. Dragon Disclaimer Dragon Disclaimer This electronic medical record was generated, in whole or in part, using a voice recognition dictation system. Splinting Splinting : Pre-Made Type: ARTUR wrap Splint: wrist Pre-Proc Neuro Vasc Exam: normal Post-Proc Neuro Vasc Exam: normal Departure Departure Impression: Primary Impression: Hand contusion Disposition: 01 HOME, SELF-CARE Condition: STABLE Referrals: CYNDEE DAVIS MD (PCP) LUIS FERNANDO LARIOS II, MD Patient Instructions: Hand Contusion, [id number] Scripts Hydrocodone/Apap 5-325 (NORCO 5-325 TABLET) 1 Each Tablet 1 TAB PO PRN Q6HRS PRN for PAIN, #6 TAB 0 Refills Prov: JESUS SIMONS DO 04/21/18 Problem Qualifiers Primary Impression: Hand contusion Encounter type: initial encounter Laterality: right Qualified Codes: S60.221A - Contusion of right hand, initial encounter JESUS SIMONS DO Apr 21, 2018 11:15
[2018-04-21] MEDS ORDERED: HYDR-3164 PO (11:26)
--- NOTE | 2018-04-21 12:50 | RAD ---
Indication:PAIN TO 1ST METACARPAL S/P FALL ON ICE WHEN WALKING DOG. TECHNIQUE: 3 views of right hand COMPARISON: None FINDINGS/ impression: No acute fracture or dislocation. Mild diffuse osteopenia. Mild second finger DIP joint osteoarthritis. 5 mm curvilinear metallic density seen in the dorsal soft tissue overlying the proximal phalanx of the fifth finger. Correlate for foreign body. Electronically signed by: Tony George DO (04/21/2018 12:46 PM) [id number]
== END 2018-04-21 11:31 | disposition home or self-care (01) ==
LOC: ER 10:38
DX: S60.221A Contusion of right hand, initial encounter (principal); F31.9 Bipolar disorder, unspecified; J44.9 Chronic obstructive pulmonary disease, unspecified; I11.0 Hypertensive heart disease with heart failure; G89.29 Other chronic pain; I50.9 Heart failure, unspecified; E78.00 Pure hypercholesterolemia, unspecified; F41.9 Anxiety disorder, unspecified; F17.200 Nicotine dependence, unspecified, uncomplicated; Z95.1 Presence of aortocoronary bypass graft; Z88.2 Allergy status to sulfonamides; W18.39XA Other fall on same level, initial encounter; Y93.K1 Activity, walking an animal; Y92.89 Other specified places as the place of occurrence of the external cause; Y99.8 Other external cause status
CPT/HCPCS: 73130; 99283

== ENCOUNTER 2018-05-04 10:55 | Emergency (ER) | payer OTHER ==
[~2018-05-04] VITALS: Ht 175.3 cm; Wt 64.4 kg
[~2018-05-04 10:55] MED LIST changes: -GABA600T2 PO; +GABA600T7 PO; -QUET50TA8 PO; +QUET50TA9 PO; -TIZA4TAB PO; +TIZA4TAB2 PO
[2018-05-04 11:05] VITALS: BP 106/59
[2018-05-04] MEDS ORDERED: HYDR-3164 PO (11:35)
[2018-05-04] MEDS ORDERED: PENI500T PO (11:35)
--- NOTE | 2018-05-04 11:36 | PHYS DOC ---
Past Medical History Past Medical History: Anxiety, Bipolar, CAD, CHF, COPD, High Cholesterol, Heart Disease, Hypertension Additional Past Medical Histor: BRAIN TUMOR,CHRONIC BACK PAIN Past Surgical History: Coronary Bypass Surgery, Lumbar Laminectomy Additional Past Surgical Histo: back x 2, open heart x 2 Alcohol Use: None Drug Use: None Adult General Chief Complaint Chief Complaint: DENTAL PROBLEM HPI HPI Patient is a 53 year old male who presents with left upper gum pain and swelling with discharge. Denies fever. States he can see his dentist on May 07. Rates his pain a 10 out of 10. Review of Systems Review of Systems Constitutional: Denies fever or chills [] Eyes: Denies change in visual acuity, redness, or eye pain [] HENT: Denies nasal congestion or sore throat. Dental pain, gum line infection. [ ] Respiratory: Denies cough or shortness of breath [] Cardiovascular: No additional information not addressed in HPI [] GI: Denies abdominal pain, nausea, vomiting, bloody stools or diarrhea [] : Denies dysuria or hematuria [] Musculoskeletal: Denies back pain or joint pain [] Integument: Denies rash or skin lesions [] Neurologic: Denies headache, focal weakness or sensory changes [] Endocrine: Denies polyuria or polydipsia [] All other systems were reviewed and found to be within normal limits, except as documented in this note. Current Medications Current Medications Current Medications Medications (Trade) Dose Ordered Sig/Garrett Start Time Stop Time Status Last Admin Dose Admin Acetaminophen/ Hydrocodone Bitart (Lortab 5/325) 1 tab 1X ONCE 05/04/18 11:45 05/04/18 11:46 DC 05/04/18 11:41 1 TAB Allergies Allergies Allergies Coded Allergies Type Severity Reaction Last Updated Verified Sulfa (Sulfonamide Antibiotics) Allergy Intermediate 08/06/17 Yes Physical Exam Physical Exam Constitutional: Well developed, well nourished, no acute distress, non-toxic appearance. [] HENT: Normocephalic, atraumatic, bilateral external ears normal, oropharynx moist, no oral exudates, nose normal. Left upper gumline redness and swelling.[] Eyes: PERRLA, EOMI, conjunctiva normal, no discharge. [] Neck: Normal range of motion, no tenderness, supple, no stridor. [] Cardiovascular:Heart rate regular rhythm, no murmur [] Lungs & Thorax: Bilateral breath sounds clear to auscultation [] Abdomen: Bowel sounds normal, soft, no tenderness, no masses, no pulsatile masses. [] Skin: Warm, dry, no erythema, no rash. [] Back: No tenderness, no CVA tenderness. [] Extremities: No tenderness, no cyanosis, no clubbing, ROM intact, no edema. [] Neurologic: Alert and oriented X 3, normal motor function, normal sensory function, no focal deficits noted. [] Psychologic: Affect normal, judgement normal, mood normal. [] Current Patient Data Vital Signs Vital Signs Date Time Temp Pulse Resp B/P (MAP) Pulse Ox O2 Delivery O2 Flow Rate FiO2 05/04/18 11:05 97.5 53 18 106/59 (75) 97 Room Air 97.5 EKG EKG [] Radiology/Procedures Radiology/Procedures [] Course & Med Decision Making Course & Med Decision Making Patient is a 53 year old male who presents with left upper gum pain and swelling with discharge. Denies fever. States he can see his dentist on May 07. Rates his pain a 10 out of 10. Denies nausea, vomiting, abdominal pain, fevers. Left upper gums are swollen and red without facial swelling. Patient is given a prescription for an antibiotic and pain medication and told that mixture he does follow up with dentist on May 07 for continuation of care. Patient has several dental caries. Dragon Disclaimer Dragon Disclaimer This electronic medical record was generated, in whole or in part, using a voice recognition dictation system. Departure Departure Impression: Primary Impression: Dental abscess Disposition: 01 HOME, SELF-CARE Condition: STABLE Referrals: CYNDEE DAVIS MD (PCP) Patient Instructions: Dental Abscess Additional Instructions: Make your appointment for May 07. Take medication as prescribed. Scripts Hydrocodone/Apap 5-325 (NORCO 5-325 TABLET) 1 Each Tablet 1 TAB PO PRN Q6HRS PRN for PAIN, #6 TAB 0 Refills Prov: ZENY RYAN APRN 05/04/18 Penicillin V Potassium (PENICILLIN V POTASSIUM) 500 Mg Tablet 1 TAB PO QID for 10 Days, #40 TAB Prov: ZENY RYAN APRN 05/04/18 ZENY RYAN APRN May 04, 2018 11:36
[2018-05-04] MEDS ORDERED: HYDROcodone/APAP 5/325MG 1 TAB TABLET PO ONE (11:45)
== END 2018-05-04 11:55 | disposition home or self-care (01) ==
LOC: ER 10:55
DX: K04.7 Periapical abscess without sinus (principal); F31.9 Bipolar disorder, unspecified; E78.00 Pure hypercholesterolemia, unspecified; I11.0 Hypertensive heart disease with heart failure; I50.9 Heart failure, unspecified; I25.10 Atherosclerotic heart disease of native coronary artery without angina pectoris; Z95.1 Presence of aortocoronary bypass graft; Z88.2 Allergy status to sulfonamides
CPT/HCPCS: 99283

== ENCOUNTER 2018-05-16 20:11 | Emergency (ER) | payer OTHER ==
[~2018-05-16] VITALS: Ht 175.3 cm; Wt 64.4 kg
[2018-05-16 20:11] VITALS: BP 112/65
[~2018-05-16 20:11] MED LIST changes: +PENI500T PO; +QUET50TA8 PO; -QUET50TA9 PO; +TIZA4TAB PO; -TIZA4TAB2 PO
--- NOTE | 2018-05-16 21:36 | RAD ---
Examination: 2 views of the lumbar spine HISTORY: History of fall on ice COMPARISON: 10/07/2017 FINDINGS: Unchanged intervertebral disc spacers identified at L4-L5 vertebral level with the interspinous hardware identified at L4-L5 vertebral level. No evidence of listhesis identified. The facets are well aligned. Moderate intervertebral disc height loss identified at L5-S1 vertebral level. IMPRESSION: Moderate degenerative changes. Unchanged lumbar hardware. Electronically signed by: Cornell Michaud MD (05/16/2018 9:33 PM) [facility]
--- NOTE | 2018-05-16 21:39 | RAD ---
Examination: 3 views of the right wrist HISTORY: History of fall on ice COMPARISON: 02/18/2018 FINDINGS: The alignment of the carpal bones grossly appears unremarkable. There is no acute fracture or dislocation identified. IMPRESSION: No acute osseous findings. Electronically signed by: Cornell Michaud MD (05/16/2018 9:36 PM) [facility]
--- NOTE | 2018-05-16 21:43 | PHYS DOC ---
Past Medical History Past Medical History: Anxiety, Bipolar, CAD, CHF, COPD, High Cholesterol, Heart Disease, Hypertension Additional Past Medical Histor: BRAIN TUMOR,CHRONIC BACK PAIN Past Surgical History: Coronary Bypass Surgery, Lumbar Laminectomy Additional Past Surgical Histo: back x 2, open heart x 2 Alcohol Use: None Drug Use: None Adult General Chief Complaint Chief Complaint: MECHANICAL FALL HPI HPI Patient is a 53 year old male who presents with pain in the right wrist and lumbar spine after he fell on the ice. He denies LOC or other injury. He is ambulating and denies spontaneous loss of bowel or bladder, saddle numbness or foot drop. Review of Systems Review of Systems Constitutional: Denies fever or chills [] Respiratory: Denies cough or shortness of breath [] Cardiovascular: No additional information not addressed in HPI [] GI: Denies abdominal pain, nausea, vomiting, bloody stools or diarrhea [] : Denies dysuria or hematuria [] Musculoskeletal: See history of present illness Integument: Denies rash or skin lesions [] Neurologic: Denies headache, focal weakness or sensory changes [] Endocrine: Denies polyuria or polydipsia [] All other systems were reviewed and found to be within normal limits, except as documented in this note. Allergies Allergies Allergies Coded Allergies Type Severity Reaction Last Updated Verified Sulfa (Sulfonamide Antibiotics) Allergy Intermediate 08/06/17 Yes Physical Exam Physical Exam Constitutional: Well developed, well nourished, no acute distress, non-toxic appearance. [] Cardiovascular:Heart rate regular rhythm, no murmur [] Lungs & Thorax: Bilateral breath sounds clear to auscultation [] Abdomen: Bowel sounds normal, soft, no tenderness, no masses, no pulsatile masses. [] Skin: Warm, dry, no erythema, no rash. [] Back: Generalized lumbar tenderness, no CVA tenderness. [] Extremities: tenderness to right wrist, no cyanosis, no clubbing, ROM intact, no edema or ecchymosis noted. [] Neurologic: Alert and oriented X 3, normal motor function, normal sensory function, no focal deficits noted. [] Psychologic: Affect normal, judgement normal, mood normal. [] Current Patient Data Vital Signs Vital Signs Date Time Temp Pulse Resp B/P (MAP) Pulse Ox O2 Delivery O2 Flow Rate FiO2 05/16/18 20:11 98.6 78 19 112/65 (81) 96 Room Air 98.6 EKG EKG [] Radiology/Procedures Radiology/Procedures []Signed PATIENT: RAPHAEL BURROUGHS ACCOUNT: [id number] : 1965 LOCATION: ER AGE: 53 SEX: M EXAM STATUS: REG ER ORD. PHYSICIAN: DAISY HARRIS APRN REASON: fell on ice PROCEDURE: LUMBAR SPINE 2-3V Examination: 2 views of the lumbar spine HISTORY: History of fall on ice COMPARISON: 10/07/2017 FINDINGS: Unchanged intervertebral disc spacers identified at L4-L5 vertebral level with the interspinous hardware identified at L4-L5 vertebral level. No evidence of listhesis identified. The facets are well aligned. Moderate intervertebral disc height loss identified at L5-S1 vertebral level. IMPRESSION: Moderate degenerative changes. Unchanged lumbar hardware. Electronically signed by: Cornell Michaud MD (05/16/2018 9:33 PM) [facility] DICTATED and SIGNED BY: CORNELL MICHAUD MD DATE: 05/16/182129 PATIENT: RAPHAEL BURROUGHS ACCOUNT: [id number] : 1965 LOCATION: ER AGE: 53 SEX: M EXAM STATUS: REG ER ORD. PHYSICIAN: DAISY HARRIS APRN REASON: fell on ice PROCEDURE: WRIST 3V RIGHT Examination: 3 views of the right wrist HISTORY: History of fall on ice COMPARISON: 02/18/2018 FINDINGS: The alignment of the carpal bones grossly appears unremarkable. There is no acute fracture or dislocation identified. IMPRESSION: No acute osseous findings. Electronically signed by: Cornell Michaud MD (05/16/2018 9:36 PM) [facility] DICTATED and SIGNED BY: CORNELL MICHAUD MD DATE: 05/16/182132 Course & Med Decision Making Course & Med Decision Making Pertinent Labs and Imaging studies reviewed. (See chart for details) [] Dragon Disclaimer Dragon Disclaimer This electronic medical record was generated, in whole or in part, using a voice recognition dictation system. Departure Departure Impression: Primary Impression: Lumbar back pain Additional Impressions: Right wrist pain Drug-seeking behavior Disposition: HOME, SELF-CARE Condition: STABLE Referrals: CYNDEE DAVIS MD (PCP) Patient Instructions: Chronic Pain Management, Wrist Pain Additional Instructions: You may take ibuprofen or Tylenol for pain. Follow-up with your primary care provider on Friday for your scheduled appointment. Problem Qualifiers DAISY HARRIS APRN May 16, 2018 21:43
== END 2018-05-16 21:54 | disposition home or self-care (01) ==
LOC: ER 20:11
DX: M25.531 Pain in right wrist (principal); M54.5 Low back pain; Z76.5 Malingerer [conscious simulation]; G89.11 Acute pain due to trauma; F31.9 Bipolar disorder, unspecified; I25.10 Atherosclerotic heart disease of native coronary artery without angina pectoris; J44.9 Chronic obstructive pulmonary disease, unspecified; I11.0 Hypertensive heart disease with heart failure; I50.9 Heart failure, unspecified; G89.29 Other chronic pain; E78.00 Pure hypercholesterolemia, unspecified; Z95.1 Presence of aortocoronary bypass graft; Z88.2 Allergy status to sulfonamides; W00.0XXA Fall on same level due to ice and snow, initial encounter; Y93.89 Activity, other specified; Y92.89 Other specified places as the place of occurrence of the external cause; Y99.8 Other external cause status
CPT/HCPCS: 29125; 72100; 73110; 99283-25

== ENCOUNTER → 2018-05-28 | Outpatient (CLI) | payer OTHER ==
[2018-05-16 20:11] VITALS: BP 112/65
[~2018-05-28] MED LIST changes: +Percogesic PO; -QUET50TA8 PO; +QUET50TA9 PO
--- NOTE | 2018-05-28 14:11 | RAD ---
CT of the chest without contrast 05/28/2018 INDICATION: Follow-up lung nodule. COMPARISON STUDY: CT of the chest without contrast December 19, 2017. TECHNIQUE: Multidetector CT imaging of the chest was performed without administration of IV contrast. FINDINGS: Heart size is normal. No significant pericardial effusion is identified. Prior median sternotomy noted. Scattered small mediastinal lymph nodes, not pathologically enlarged by size criteria, are noted, grossly similar to comparison study. Calcified subcarinal lymph nodes incidentally noted. Some coronary calcification is seen. No pneumothorax or pleural effusion is identified. Scattered sub-5 mm nodules are noted in the apical left upper lobe. The largest of these measures 4 mm the seen on axial image 15. Allowing for differences in slice selection and technique the size is similar to comparison study. Mild lingular scarring is unchanged in appearance. No new or acute appearing focal consolidative infiltrate is identified. Limited visualization of the upper abdomen demonstrates evidence of prior granulomatous disease involving the spleen. No acute osseous changes are identified. Hemangioma within the T7 vertebral body unchanged. IMPRESSION: 1. Grossly stable appearance of small nodular opacities in the apical left upper lobe. Recommend CT imaging to ensure 2 years of stability 2. Otherwise grossly stable CT appearance of the chest. CT DOSING PQRS STATEMENT: One or more of the following individualized dose reduction techniques were utilized for this examination: 1. Automated exposure control 2. Adjustment of the mA and/or kV according to patient size 3. Use of iterative reconstruction technique Electronically signed by: Rhett Coleman MD (05/28/2018 2:07 PM) [id number]
== END | disposition home or self-care (01) ==
LOC: CT 10:32
PROVIDERS: ATTEND Internal Medicine Pulmonary Disease
DX: R91.1 Solitary pulmonary nodule (principal); D18.09 Hemangioma of other sites; I25.10 Atherosclerotic heart disease of native coronary artery without angina pectoris
CPT/HCPCS: 71250

== ENCOUNTER 2018-07-18 09:46 | Emergency (ER) | payer OTHER ==
[~2018-07-18] VITALS: Ht 175.3 cm; Wt 64.4 kg
[~2018-07-18 09:46] MED LIST changes: -Percogesic PO
[2018-07-18 09:50] VITALS: BP 118/69
[2018-07-18] MEDS ORDERED: KETOROLAC 60 MG/2 ML VIAL. IM ONE (10:15)
--- NOTE | 2018-07-18 10:38 | PHYS DOC ---
Past Medical History Past Medical History: Anxiety, Bipolar, CAD, CHF, COPD, High Cholesterol, Heart Disease, Hypertension Additional Past Medical Histor: BRAIN TUMOR,CHRONIC BACK PAIN Past Surgical History: Coronary Bypass Surgery, Lumbar Laminectomy Additional Past Surgical Histo: back x 2, open heart x 2 Alcohol Use: None Drug Use: None Adult General Chief Complaint Chief Complaint: SHOULDER INJURY [facility] HPI Patient is a 53 year old right-handed male who presents with complaining of right shoulder pain. Patient states he tripped on his dog leash last night and landed on his right shoulder without loss of consciousness or other injuries. Patient complaining of constant right shoulder pain that getting force with movement and rated his pain 10 over 10. Patient denies focal neuro deficit, fever and chills, nausea and vomiting. Patient has had frequent emergency room visits with different complaints. Review of Systems Review of Systems Constitutional: Denies fever or chills [] Eyes: Denies change in visual acuity, redness, or eye pain [] HENT: Denies nasal congestion or sore throat [] Respiratory: Denies cough or shortness of breath [] Cardiovascular: No additional information not addressed in HPI [] GI: Denies abdominal pain, nausea, vomiting, bloody stools or diarrhea [] : Denies dysuria or hematuria [] Musculoskeletal: Denies back pain, reports joint pain [] Integument: Denies rash or skin lesions [] Neurologic: Denies headache, focal weakness or sensory changes [] Endocrine: Denies polyuria or polydipsia [] All other systems were reviewed and found to be within normal limits, except as documented in this note. Current Medications Current Medications Current Medications Medications (Trade) Dose Ordered Sig/Garrett Start Time Stop Time Status Last Admin Dose Admin Ketorolac Tromethamine (Toradol Im) 60 mg 1X ONCE 07/18/18 10:15 07/18/18 10:16 DC 07/18/18 10:09 60 MG Allergies Allergies Allergies Coded Allergies Type Severity Reaction Last Updated Verified Sulfa (Sulfonamide Antibiotics) Allergy Intermediate 08/06/17 Yes Physical Exam Physical Exam Constitutional: Well nourished, mild distress, non-toxic appearance. [] HENT: Normocephalic, atraumatic, oropharynx moist. Eyes: PERRLA, EOMI, conjunctiva normal, no discharge. [] Neck: Normal range of motion, no tenderness, supple, no stridor. [] Cardiovascular:Heart rate regular rhythm, no murmur [] Lungs & Thorax: Bilateral breath sounds clear to auscultation [] Back: No tenderness, no CVA tenderness. [] Extremities: Right shoulder without deformity or erythema, normal range of motion with pain ,No tenderness, no cyanosis, no clubbing, ROM intact, no edema. [] Neurologic: Alert and oriented X 3, normal motor function, normal sensory function, no focal deficits noted. [] Psychologic: Affect anxious, judgement normal, mood normal. [] Current Patient Data Vital Signs Vital Signs Date Time Temp Pulse Resp B/P (MAP) Pulse Ox O2 Delivery O2 Flow Rate FiO2 07/18/18 09:50 97.6 63 20 118/69 (85) 98 Room Air 97.6 EKG EKG [] Radiology/Procedures Radiology/Procedures Shoulder x-ray interpreted by me and did not show acute dislocation or fracture. [] Course & Med Decision Making Course & Med Decision Making Pertinent Imaging studies reviewed. (See chart for details) Evaluation of patient in ER showed 53-year-old male patient with history of bipolar disorder and frequent emergency room visits complaining of right shoulder injury after fall last night. Patient had unremarkable physical exam except for painful range of motion. X-ray did not show fracture or dislocation. Patient treated with Toradol in ER and plan to discharge home with diagnosis of right shoulder sprain. Shoulder sling was provided in ER. Dragon Disclaimer Dragon Disclaimer This electronic medical record was generated, in whole or in part, using a voice recognition dictation system. Departure Departure Impression: Primary Impression: Sprain of shoulder, right Additional Impressions: Fall at home Tobacco abuse Tobacco abuse counseling Anxiety Disposition: HOME, SELF-CARE (@1045) Condition: IMPROVED Referrals: CYNDEE DAVIS MD (PCP) Patient Instructions: Shoulder Sprain, Smoking Cessation, Tips For Success Additional Instructions: Apply ice on right shoulder Use Provided shoulder sling Follow-up with your primary care physician in 3-5 days Return to ER if not getting better Scripts Cyclobenzaprine Hcl (CYCLOBENZAPRINE HCL) 10 Mg Tablet 1 TAB PO TID for muscle pain, #30 TAB Prov: HOLDEN VANCE MD 07/18/18 [Percogesic] No Conflict Check 1 TAB PO QID PRN for PAIN Prov: HOLDEN VANCE MD 07/18/18 Problem Qualifiers Primary Impression: Sprain of shoulder, right Encounter type: initial encounter Shoulder sprain type: unspecified sprain Qualified Codes: S43.401A - Unspecified sprain of right shoulder joint, initial encounter Additional Impressions: Fall at home Encounter type: initial encounter Qualified Codes: W19.XXXA - Unspecified fall, initial encounter; Y92.009 - Unspecified place in unspecified non- institutional (private) residence as the place of occurrence of the external cause HOLDEN VANCE MD Jul 18, 2018 10:38
[2018-07-18] MEDS ORDERED: Percogesic PO (10:49)
[2018-07-18] MEDS ORDERED: CYCL10TA2 PO (10:49)
--- NOTE | 2018-07-18 10:56 | RAD ---
Exam performed:3 views right shoulder Indication: Right scapular pain status post fall Date of service: 07/18/2018. Comparison: None available Findings : AP radiographs of the shoulder in internal and external rotation as well as a Y-view reveal the osseous structures to be intact and well aligned. The joint space is well-preserved. The articular margins are smooth. Visualized right lung is clear. Impression: Radiographically normal shoulder. Electronically signed by: Steffanie Cochran MD (07/18/2018 10:53 AM) [facility]
== END 2018-07-18 11:02 | disposition home or self-care (01) ==
LOC: ER 09:46
DX: S43.401A Unspecified sprain of right shoulder joint, initial encounter (principal); F41.9 Anxiety disorder, unspecified; F31.9 Bipolar disorder, unspecified; I11.0 Hypertensive heart disease with heart failure; I50.9 Heart failure, unspecified; E78.00 Pure hypercholesterolemia, unspecified; J44.9 Chronic obstructive pulmonary disease, unspecified; I25.10 Atherosclerotic heart disease of native coronary artery without angina pectoris; G89.29 Other chronic pain; Z95.1 Presence of aortocoronary bypass graft; Z72.0 Tobacco use; Z71.6 Tobacco abuse counseling; Z88.2 Allergy status to sulfonamides; W01.0XXA Fall on same level from slipping, tripping and stumbling without subsequent striking against object, initial encounter; Y93.89 Activity, other specified; Y92.098 Other place in other non-institutional residence as the place of occurrence of the external cause; Y99.8 Other external cause status
CPT/HCPCS: 73030; 96372; 99284; J1885

== ENCOUNTER 2018-09-16 15:07 | Emergency (ER) | payer OTHER ==
[~2018-09-16] VITALS: Ht 175.3 cm; Wt 64.4 kg
[~2018-09-16 15:07] MED LIST changes: +Percogesic PO
[2018-09-16 15:56] VITALS: BP 96/57
--- NOTE | 2018-09-16 16:51 | PHYS DOC ---
Past Medical History Past Medical History: Anxiety Additional Past Medical Histor: BRAIN TUMOR,CHRONIC BACK PAIN Past Surgical History: Coronary Bypass Surgery, Lumbar Laminectomy Additional Past Surgical Histo: back x 2, open heart x 2 Additional Information: down to a pack every 3 days Alcohol Use: None Drug Use: None Adult General Chief Complaint Chief Complaint: BACK PAIN OR INJURY [facility] Patient is a 53 year old [f__sex] who presents with [] Review of Systems Review of Systems Constitutional: Denies fever or chills [] Eyes: Denies change in visual acuity, redness, or eye pain [] HENT: Denies nasal congestion or sore throat [] Respiratory: Denies cough or shortness of breath [] Cardiovascular: No additional information not addressed in HPI [] GI: Denies abdominal pain, nausea, vomiting, bloody stools or diarrhea [] : Denies dysuria or hematuria [] Musculoskeletal: Denies back pain or joint pain [] Integument: Denies rash or skin lesions [] Neurologic: Denies headache, focal weakness or sensory changes [] Endocrine: Denies polyuria or polydipsia [] All other systems were reviewed and found to be within normal limits, except as documented in this note. Allergies Allergies Allergies Coded Allergies Type Severity Reaction Last Updated Verified Sulfa (Sulfonamide Antibiotics) Allergy Intermediate 08/06/17 Yes Physical Exam Physical Exam Constitutional: Well developed, well nourished, no acute distress, non-toxic appearance. [] HENT: Normocephalic, atraumatic, bilateral external ears normal, oropharynx moist, no oral exudates, nose normal. [] Eyes: PERRLA, EOMI, conjunctiva normal, no discharge. [] Neck: Normal range of motion, no tenderness, supple, no stridor. [] Cardiovascular:Heart rate regular rhythm, no murmur [] Lungs & Thorax: Bilateral breath sounds clear to auscultation [] Abdomen: Bowel sounds normal, soft, no tenderness, no masses, no pulsatile masses. [] Skin: Warm, dry, no erythema, no rash. [] Back: No tenderness, no CVA tenderness. [] Extremities: No tenderness, no cyanosis, no clubbing, ROM intact, no edema. [] Neurologic: Alert and oriented X 3, normal motor function, normal sensory function, no focal deficits noted. [] Psychologic: Affect normal, judgement normal, mood normal. [] Current Patient Data Vital Signs Vital Signs Date Time Temp Pulse Resp B/P (MAP) Pulse Ox O2 Delivery O2 Flow Rate FiO2 09/16/18 15:56 98.1 60 16 96/57 (70) 99 Room Air 98.1 EKG EKG [] Radiology/Procedures Radiology/Procedures [] Course & Med Decision Making Course & Med Decision Making Patient presented to the ER for complaints of increased right lower back pain with report he has chronic ongoing back pain following surgeries. Patient states he was lifting a heavy object today. Patient was offered Lidoderm patch and Robaxin as well as Tylenol and/or ibuprofen. During conversation patient started becoming rude and started pointing his finger at this provider talking about how he is given Hydrocodone 10mg tabs. With attempts to discuss options for treatment were interrupted multiple times with rude comments final discussion had with patient that if the could not refrain from via rude and cussing at staff as well as his who arrived bedside. Pt continued to cuss and be rude and so security was called to bedside. Patient's stated patient had Lidoderm patches at home as well as been on Flexeril so uncertain if patient had that at home as well. With patient and his escalating behavior he was escorted out of the ER with steady unassisted gait cussing as he left the department. [] Dragon Disclaimer Dragon Disclaimer This electronic medical record was generated, in whole or in part, using a voice recognition dictation system. Departure Departure Impression: Primary Impression: Drug-seeking behavior Additional Impression: Low back pain Referrals: NO PCP (PCP) Problem Qualifiers VICK MCDANIEL [employer] SPECIALIST Sep 16, 2018 16:51
== END 2018-09-16 16:40 | disposition home or self-care (01) ==
LOC: ER 15:07
DX: M54.5 Low back pain (principal); Z76.5 Malingerer [conscious simulation]; G89.29 Other chronic pain; F17.200 Nicotine dependence, unspecified, uncomplicated; Z95.1 Presence of aortocoronary bypass graft; Z98.890 Other specified postprocedural states; Z88.2 Allergy status to sulfonamides
CPT/HCPCS: 99281

== ENCOUNTER 2020-04-15 13:21 | Emergency (ER) | payer OTHER ==
[~2020-04-15] VITALS: Ht 175.3 cm; Wt 64.4 kg
[~2020-04-15 13:21] MED LIST changes: -BUPR300T4 PO; +BUPR300T92 PO; +DICL50TA2 PO; -HYDR100V IJ; +HYDR100V6 IJ; +LEVO-101 PO; -LEVO100T PO; -TIZA4TAB PO; +TIZA4TAB2 PO; +TRAZ-123 PO; -TRAZ-86 PO
--- NOTE | 2020-04-15 15:06 | PHYS DOC ---
Past Medical History Past Medical History: Anxiety, COPD Additional Past Medical Histor: BRAIN TUMOR,CHRONIC BACK PAIN " heart condition" Past Surgical History: Coronary Bypass Surgery, Lumbar Laminectomy Additional Past Surgical Histo: back x 2, open heart x 2 Smoking Status: Current Every Day Smoker Alcohol Use: Occasionally Drug Use: None Social History Narrative: denies drug use General Adult EDM: Chief Complaint: MECHANICAL FALL HPI: HPI: Patient is a 55 year old male patient with history of COPD, chronic back pain, well-known to this ED for back complaints and seeking narcotics presenting today stating he fell yesterday. He states it was icy outside he slipped on ice fell hitting the left mid back on his truck. Denies any loss of consciousness. He is complaining of low back pain, left mid back pain, and left rib pain. Denies any loss of consciousness. Denies hitting his head on the ground. Describes the pain as sharp and constant. Rates the pain as moderate. Currently eating rosangela crackers while I talked to him. He was requested not to eat for now. Review of Systems: Review of Systems: Constitutional: Denies fever or chills. [] GI: Denies abdominal pain, nausea, vomiting, bloody stools or diarrhea. [] : Denies dysuria. [] Musculoskeletal: Reports low back pain, mid back pain, left rib pain Integument: Denies rash. [] Neurologic: Denies headache, focal weakness or sensory changes. [] Psychiatric: Denies depression or anxiety. [] Heart Score: Risk Factors: Risk Factors: DM, Current or recent (<one month) smoker, HTN, HLP, family history of CAD, obesity. Risk Scores: Score 0 - 3: 2.5% MACE over next 6 weeks - Discharge Home Score 4 - 6: 20.3% MACE over next 6 weeks - Admit for Clinical Observation Score 7 - 10: 72.7% MACE over next 6 weeks - Early Invasive Strategies Allergies: Allergies: Allergies Coded Allergies Type Severity Reaction Last Updated Verified Sulfa (Sulfonamide Antibiotics) Allergy Intermediate 08/06/17 Yes Physical Exam: PE: Constitutional: Well developed, well nourished, no acute distress, non-toxic appearance. [] Chest: No bruising noted to the chest. No tenderness to the chest. No bruising to the chest. Abdomen: Bowel sounds normal, soft, no tenderness, no masses, no pulsatile masses. [] Skin: Warm, dry, no erythema, no rash. [] Back: No tenderness, no CVA tenderness. [] Extremities: No tenderness, no cyanosis, no clubbing, ROM intact, no edema. [] Neurologic: Alert and oriented X 3, normal motor function, normal sensory function, no focal deficits noted. [] Psychologic: Affect normal, judgement normal, mood normal. [] Current Patient Data: Vital Signs: Vital Signs Date Time Temp Pulse Resp B/P (MAP) Pulse Ox O2 Delivery O2 Flow Rate FiO2 04/15/20 14:40 97.5 59 18 109/76 (87) 99 Room Air 97.5 EKG: EKG: [] Radiology/Procedures: Radiology/Procedures: [] Course & Med Decision Making: Course & Med Decision Making Pertinent Labs and Imaging studies reviewed. (See chart for details) This is a 55-year-old male patient well-known to this ED for pain related complaints and narcotic seeking behavior presenting today complaining of mid back pain, low back pain, left rib pain status post falling yesterday. Patient is eating crackers as we speak right now. I requested him to stop eating in the ED. X-rays were ordered. Patient started cursing out of the charge nurse Heena using "F" language loudly. Charge nurse requested him to stop cursing and being disrespectful he continued to curse out loud. He was asked leave the ED. Please see charge nurse documentation. He stated he will never come back to this "f" hospital. Edgar Disclaimer: Edgar Disclaimer: This electronic medical record was generated, in whole or in part, using a voice recognition dictation system. Departure Departure Impression: Primary Impression: Fall Qualified Codes: W19.XXXA - Unspecified fall, initial encounter Additional Impressions: Contusion of thoracic wall Qualified Codes: S20.224A - Contusion of middle back wall of thorax, initial encounter Lumbar contusion Qualified Codes: S30.0XXA - Contusion of lower back and pelvis, initial encounter Chronic low back pain Qualified Codes: M54.42 - Lumbago with sciatica, left side; M54.41 - Lumbago with sciatica, right side; G89.29 - Other chronic pain Drug-seeking behavior Disposition: 07 AMA/ELOPED/LWBS Condition: STABLE Referrals: NO PCP (PCP) RIDGE STEELE APRN Apr 15, 2020 15:06
[2020-04-15 16:00] VITALS: BP 115/62
--- NOTE | 2020-04-15 16:28 | RAD ---
Exam: Thoracic spine 2 views. Lumbar spine 2 views INDICATION: Fall TECHNIQUE: Frontal and lateral views of the thoracic and lumbar spine Comparisons: 06/03/2019 FINDINGS: Thoracic spine: Sternotomy wires are noted. Vertebral body heights and alignment are well-maintained. Mild degenerative disc disease noted at the mid thoracic spine. Visualized paraspinal soft tissues are unremarkable. Lumbar spine: Posterior fusion device noted at the L4-L5 spinous processes with disc spacer at L4-L5. Vertebral body heights and alignment are well-maintained. Visualized paraspinal soft tissues are unremarkable. IMPRESSION: 1. Mild spondylotic change in the thoracic spine as described above. 2. Postoperative changes in the lumbar spine without acute abnormality seen. Electronically signed by: Emerald Jaime MD (04/15/2020 4:25 PM) [facility]
--- NOTE | 2020-04-15 16:33 | RAD ---
Exam: Left ribs with PA chest INDICATION: Fall TECHNIQUE: Frontal view of the chest with frontal and oblique views of the left ribs Comparisons: 08/22/2017 FINDINGS: Sternotomy wires are noted. The cardiomediastinal silhouette and pulmonary vessels are within normal limits. The lung and pleural spaces are clear. No displaced rib fractures. IMPRESSION: 1. No acute cardiopulmonary process. 2. No displaced rib fractures. Electronically signed by: Emerald Jaime MD (04/15/2020 4:30 PM) [facility]
== END 2020-04-15 16:25 | disposition left against medical advice (07) ==
LOC: ER 13:21
DX: S20.224A Contusion of middle back wall of thorax, initial encounter (principal); S30.0XXA Contusion of lower back and pelvis, initial encounter; M54.41 Lumbago with sciatica, right side; M54.42 Lumbago with sciatica, left side; Z76.5 Malingerer [conscious simulation]; R07.81 Pleurodynia; J44.9 Chronic obstructive pulmonary disease, unspecified; G89.29 Other chronic pain; F17.200 Nicotine dependence, unspecified, uncomplicated; Z95.1 Presence of aortocoronary bypass graft; Z88.2 Allergy status to sulfonamides; W18.39XA Other fall on same level, initial encounter; Y93.89 Activity, other specified; Y92.89 Other specified places as the place of occurrence of the external cause; Y99.8 Other external cause status
CPT/HCPCS: 71101; 72072; 72100; 99284

== ENCOUNTER 2021-06-27 23:52 | Inpatient (IN) | payer MEDICAID, OTHER ==
[~2021-06-27] VITALS: Ht 175.3 cm; Wt 56.3 kg
[~2021-06-27 23:52] MED LIST changes: -CITA10TA4 PO; +CITA10TA5 PO; +CYCL10TA19 PO; -CYCL10TA2 PO; -LISI2.5T PO; +LISI2.5T12 PO; -QUET100T PO; +QUET100T2 PO; +TIZA-75 PO; -TIZA4TAB2 PO
[2021-06-28] MEDS ORDERED: IV NORMAL SALINE 1000ML BAG 1,000 ML IV ONE (00:15)
[2021-06-28 00:27] LABS: BASO # 0.1 x10^3/uL (0.0-0.2); BASO % 1 % (0-3); EOS # 0.1 x10^3/uL (0.0-0.7); EOS % 1 % (0-3); HEMATOCRIT 38.9 % (39.0-53.0); HEMOGLOBIN 13.1 g/dL (13.0-17.5); LYMPH # 1.7 x10^3/uL (1.0-4.8); LYMPH % 35 % (24-48); MEAN CORPUSCULAR HEMOGLOBIN 31 pg (25-35); MEAN CORPUSCULAR HGB CONC 34 g/dL (31-37); MEAN CORPUSCULAR VOLUME 91 fL (79-100); MONO # 0.5 x10^3/uL (0.0-1.1); MONO % 12 % (0-9); NEUT # 2.4 x10^3/uL (1.8-7.7); NEUT % 51 % (31-73); PLATELET COUNT 212 x10^3/uL (140-400); RED BLOOD COUNT 4.28 x10^6/uL (4.30-5.70); RED CELL DISTRIBUTION WIDTH 12.2 % (11.5-14.5); WHITE BLOOD COUNT 4.8 x10^3/uL (4.0-11.0)
[2021-06-28 00:33] LABS: CREATININE 1.2 mg/dL (0.7-1.3); GFR 62.2; POTASSIUM 4.2 mmol/L (3.5-5.1)
[2021-06-28 00:37] LABS: PROTHROMBIN TIME PATIENT 12.6 SEC (11.7-14.0)
[2021-06-28 00:39] LABS: ALBUMIN/GLOBULIN RATIO 1.3 (1.0-1.7); TOTAL BILIRUBIN 0.4 mg/dL (0.2-1.0); TOTAL PROTEIN 7.1 g/dL (6.4-8.2)
--- NOTE | 2021-06-28 00:41 | RAD ---
EXAMINATION: CT HEAD/BRAIN WO CLINICAL HISTORY: Syncope. History of pituitary tumor. TECHNIQUE: Serial axial images without IV contrast were obtained from the vertex to the foramen magnu m. CT Dose Reduction Employed: One or more of the following individualized dose reduction techniques wer e utilized for this examination: 1. Automated exposure control 2. Adjustment of the mA and/or kV ac cording to patient size 3. Use of iterative reconstruction technique. COMPARISON: 08/22/2017 FINDINGS: Acute Change: No evidence of an acute infarct or other acute parenchymal process. Hemorrhage: No evidence of acute intracranial hemorrhage. Mass Lesion/Mass Effect: No evidence of intracranial mass or extraaxial fluid collection. No signific ant mass effect. Chronic Change: Encephalomalacia in the anterior-inferior frontal lobes and right temporal lobe, clyde lar to prior study and likely related to remote insult/infarct. Scattered patchy foci of hypoattenuat ion in the supratentorial white matter, nonspecific but likely represents mild microvascular ischemia . Parenchyma: No significant volume loss. Parenchyma otherwise within normal limits for age. Ventricles: Ventricles within normal limits for age. Paranasal Sinuses and Skull Base: Visualized paranasal sinuses clear. Expanded sella turcica, similar to prior study. IMPRESSION: No evidence of acute intracranial abnormality or significant interval change. Electronically signed by: Vinod Crandall DO (06/28/2021 12:39 AM) [facility]
--- NOTE | 2021-06-28 02:36 | PHYS DOC ---
Past Medical History Past Medical History: Anxiety, COPD Additional Past Medical Histor: PITUITARY BRAIN TUMOR,CHRONIC BACK PAIN " heart condition" Past Surgical History: Coronary Bypass Surgery, Lumbar Laminectomy Additional Past Surgical Histo: back x 2, open heart x 2 Smoking Status: Current Every Day Smoker Alcohol Use: Occasionally Drug Use: None Adult General Chief Complaint Chief Complaint: SYNCOPE HPI HPI Patient is a 56 year old male who presents with a syncopal episode. Patient has been nauseated all day and states that he had 6 small meal for breakfast but really has not had anything to eat or drink since then. He has a headache which is diffuse and pounding. He woke up on the floor and does not recall falling. He denies any neck pain, shoulder pain extremity pain or abdominal discomfort. He does have some back pain but this is chronic. He does continue to have a headache as well. No fever or recent illness. Patient's had called EMS. Review of Systems Review of Systems Constitutional: Denies fever Eyes: Denies change in visual acuity or eye pain HENT: Denies sore throat Respiratory: Denies shortness of breath Cardiovascular: Denies chest pain GI: Denies abd pain : Denies dysuria Musculoskeletal: Denies extremity injury Integument: Denies rash or skin lesions Neurologic: Reports headache, denies focal weakness or sensory changes All other systems were reviewed and found to be within normal limits, except as documented in this note. Current Medications Current Medications Current Medications Medications (Trade) Dose Ordered Sig/Garrett Start Time Stop Time Status Last Admin Dose Admin Sodium Chloride 1,000 ml @ 1,000 mls/hr 1X ONCE 06/28/21 00:15 06/28/21 01:14 DC 06/28/21 00:37 1,000 MLS/HR Allergies Allergies Allergies Coded Allergies Type Severity Reaction Last Updated Verified Sulfa (Sulfonamide Antibiotics) Allergy Intermediate 08/06/17 Yes Physical Exam Physical Exam Constitutional: Well developed, well nourished, thin, no acute distress, non- toxic appearance. HENT: Normocephalic, atraumatic, bilateral external ears normal, mucosa moist, nose normal. Eyes: EOMI, conjunctiva normal, no discharge. Neck: Normal range of motion, supple, no stridor, no meningeal signs. Cardiovascular: Bradycardic rate rate and regular rhythm Lungs & Thorax: Bilateral breath sounds clear to auscultation Abdomen: Soft, no tenderness or obvious masses Skin: Warm, dry, no erythema, no rash. Extremities: No tenderness, no cyanosis, no clubbing, ROM intact, no edema. Neurologic: Alert and oriented, normal motor function, normal sensory function, no focal deficits noted. Psychologic: Affect normal, judgement normal, mood normal. Current Patient Data Vital Signs Vital Signs Date Time Temp Pulse Resp B/P (MAP) Pulse Ox O2 Delivery O2 Flow Rate FiO2 06/28/21 01:52 46 14 136/66 (89) 94 Room Air 06/27/21 23:55 97.8 97.8 Lab Values Laboratory Tests Test 06/28/21 00:03 White Blood Count 4.8 x10^3/uL (4.0-11.0) Red Blood Count 4.28 x10^6/uL (4.30-5.70) L Hemoglobin 13.1 g/dL (13.0-17.5) Hematocrit 38.9 % (39.0-53.0) L Mean Corpuscular Volume 91 fL (79-100) Mean Corpuscular Hemoglobin 31 pg (25-35) Mean Corpuscular Hemoglobin Concent 34 g/dL (31-37) Red Cell Distribution Width 12.2 % (11.5-14.5) Platelet Count 212 x10^3/uL (140-400) Neutrophils (%) (Auto) 51 % (31-73) Lymphocytes (%) (Auto) 35 % (24-48) Monocytes (%) (Auto) 12 % (0-9) H Eosinophils (%) (Auto) 1 % (0-3) Basophils (%) (Auto) 1 % (0-3) Neutrophils # (Auto) 2.4 x10^3/uL (1.8-7.7) Lymphocytes # (Auto) 1.7 x10^3/uL (1.0-4.8) Monocytes # (Auto) 0.5 x10^3/uL (0.0-1.1) Eosinophils # (Auto) 0.1 x10^3/uL (0.0-0.7) Basophils # (Auto) 0.1 x10^3/uL (0.0-0.2) Prothrombin Time 12.6 SEC (11.7-14.0) Prothrombin Time INR 1.0 (0.8-1.1) Activated Partial Thromboplast Time 27 SEC (24-38) Sodium Level 140 mmol/L (136-145) Potassium Level 4.2 mmol/L (3.5-5.1) Chloride Level 105 mmol/L (98-107) Carbon Dioxide Level 28 mmol/L (21-32) Anion Gap 7 (6-14) Blood Urea Nitrogen 26 mg/dL (8-26) Creatinine 1.2 mg/dL (0.7-1.3) Estimated GFR (Cockcroft-Gault) 62.2 BUN/Creatinine Ratio 22 (6-20) H Glucose Level 102 mg/dL (70-99) H Calcium Level 9.0 mg/dL (8.5-10.1) Total Bilirubin 0.4 mg/dL (0.2-1.0) Aspartate Amino Transferase (AST) 25 U/L (15-37) Alanine Aminotransferase (ALT) 50 U/L (16-63) Alkaline Phosphatase 49 U/L (46-116) Troponin I High Sensitivity 8 ng/L (4-75) WY-Wqz-T-Type Natriuretic Peptide 129 pg/mL (0-124) H Total Protein 7.1 g/dL (6.4-8.2) Albumin 4.0 g/dL (3.4-5.0) Albumin/Globulin Ratio 1.3 (1.0-1.7) Laboratory Tests 06/28/21 00:03 Laboratory Tests 06/28/21 00:03 EKG EKG [] Twelve-lead EKG shows a sinus rhythm with a rate of 50. PA interval is prolonged at 214 ms, QRS and QT corrected are within normal limits. No ST segment elevation or depression. Radiology/Procedures Radiology/Procedures [] Impressions: PATIENT: RAPHAEL BURROUGHS LACCOUNT: [id number]#: [id number] : 1965 LOCATION: ER AGE: 56 SEX: M EXAM STATUS: PRE ER ORD. PHYSICIAN: GAEL WORTHINGTON MD REASON: syncope PROCEDURE: CT HEAD WO CONTRAST EXAMINATION: CT HEAD/BRAIN WO CLINICAL HISTORY: Syncope. History of pituitary tumor. TECHNIQUE: Serial axial images without IV contrast were obtained from the vertex to the foramen magnum. CT Dose Reduction Employed: One or more of the following individualized dose reduction techniques were utilized for this examination: 1. Automated exposure control 2. Adjustment of the mA and/or kV according to patient size 3. Use of iterative reconstruction technique. COMPARISON: 08/22/2017 FINDINGS: Acute Change: No evidence of an acute infarct or other acute parenchymal process. Hemorrhage: No evidence of acute intracranial hemorrhage. Mass Lesion/Mass Effect: No evidence of intracranial mass or extraaxial fluid collection. No significant mass effect. Chronic Change: Encephalomalacia in the anterior-inferior frontal lobes and right temporal lobe, similar to prior study and likely related to remote insult/ infarct. Scattered patchy foci of hypoattenuation in the supratentorial white matter, nonspecific but likely represents mild microvascular ischemia. Parenchyma: No significant volume loss. Parenchyma otherwise within normal limits for age. Ventricles: Ventricles within normal limits for age. Paranasal Sinuses and Skull Base: Visualized paranasal sinuses clear. Expanded sella turcica, similar to prior study. IMPRESSION: No evidence of acute intracranial abnormality or significant interval change. Electronically signed by: Vinod Blake DO (06/28/2021 12:39 AM) [facility] DICTATED and SIGNED BY: VINOD BLAEK DO DATE: 06/28/21 0034 Course & Med Decision Making Course & Med Decision Making pertinent Labs and Imaging studies reviewed. (See chart for details) [] This is a 56-year-old male with a syncopal episode. He did have a headache so we had gotten a CT of the head, this is negative for intracranial bleeding, mass-effect, midline shift or other acute abnormalities. Lab studies are remarkable only for a slightly elevated BUN at 26, creatinine is 1.2 I believe. Patient is likely a bit dehydrated given his nausea and lack of oral intake. While in the ED the patient's heart rate has gone down below 40 a couple of times. The etiology of his syncope is somewhat unclear. We will keep him in the hospital for further cardiac monitoring and work-up as indicated, he is in stable but guarded condition at this time. Dragon Disclaimer Dragon Disclaimer This electronic medical record was generated, in whole or in part, using a voice recognition dictation system. Departure Departure Impression: Primary Impression: Syncope and collapse Additional Impressions: Dehydration Bradycardia Disposition: ADMITTED INPATIENT Condition: GUARDED Referrals: NO PCP (PCP) Problem Qualifiers GAEL WORTHINGTON MD Jun 28, 2021 02:36
[2021-06-28 02:59] LABS: INFLUENZA A PATIENT NEGATIVE (NEGATIVE); INFLUENZA B PATIENT NEGATIVE (NEGATIVE)
[2021-06-28 04:12] VITALS: BP 121/69
[2021-06-28 07:00] VITALS: BP 106/69
[2021-06-28] MEDS ORDERED: ONDANSETRON PF 4 MG/2 ML VIAL. IVP PRN ×2 (07:30→09:15)
[2021-06-28] MEDS ORDERED: ACETAMINOPHEN 325 MG TABLET. PO PRN ×2 (07:30→09:15)
[2021-06-28] MEDS ORDERED: traMADol 50 MG TABLET PO PRN (07:30)
[2021-06-28] MEDS ORDERED: hydrALAZINE 20 MG/ML VIAL. IVP PRN (07:30)
--- NOTE | 2021-06-28 08:29 | EKG ---
[address] [place] [address] Test Date: 2021-06-27 Test Time: 23:54:22 Pat Name: RAPHAEL BURROUGHS Department: Room: 202 1 Gender: M Engineering Director: : 1965 Requested By: GAEL WORTHINGTON Order Number: [id number] Reading MD: Ari Puri MD Measurements Intervals Briggs Rate: 50 P: 66 PA: 214 QRS: 68 QRSD: 90 T: 52 QT: 446 QTc: 405 Interpretive Statements SINUS RHYTHM Electronically Signed On 06-28-2021 18:21:26 CDT by Ari Puri MD
--- NOTE | 2021-06-28 08:59 | PDOC1 ---
History and Physical Date of Admission Date of Admission DATE: 06/28/21 TIME: 08:48 Identification/Chief Complaint Chief Complaint Syncope Source Source: Patient History of Present Illness History of Present Illness Patient a 56-year-old male with past medical history CABG, CAD, DDD, presents to the ED at the behest of his after having a syncopal episode earlier this morning. Patient states that he was nauseous all day yesterday, only having a few small meals, not much to drink, and does not recall any syncopal event. States that he woke up on the floor and then the next thing he knew he was brought to the emergency department. He does report a history of multiple similar events, but is a somewhat poor historian and cannot name the last time he had a syncopal episode like this. He does report associated headache that is since resolved, but denies any chest pain or shortness of breath. Labs on admission showed BUN 26, creatinine 1.2, BUN/creatinine ratio 22. Patient will be admitted for further medical management. Past Medical History Cardiovascular: CAD, CHF, HTN, IN, Hyperlipidemia Pulmonary: COPD, Pneumonia, Other CENTRAL NERVOUS SYSTEM: Seizure, Other GI: GERD, Hemorrhoids, Other Heme/Onc: Anemia NOS, Cancer Hepatobiliary: Hep A/B/C Psych: Anxiety, Bipolar, Depression Musculoskeletal: low back pain Rheumatologic: Other Infectious disease: No pertinent hx Renal/: No pertinent hx Endocrine: Hypothyroidism Past Surgical History Past Surgical History: CABG, Other Family History Family History: Coronary Artery Disease Social History Smoke: 1 pack per day ALCOHOL: occassional Drugs: Cocaine Current Problem List Problem List Problems Medical Problems: (1) Bradycardia Status: Acute (2) Dehydration Status: Acute (3) Syncope and collapse Status: Acute Current Medications Current Medications Current Medications Sodium Chloride 1,000 ml @ 1,000 mls/hr 1X ONCE IV Last administered on 06/28/21at 00:37; Start 06/28/21 at 00:15; Stop 06/28/21 at 01:14; Status DC Ondansetron HCl (Zofran) 4 mg PRN Q4HRS PRN IVP NAUSEA/VOMITING; Start 06/28/21 at 07:30 Tramadol HCl (Ultram) 50 mg PRN Q6HRS PRN PO PAIN; Start 06/28/21 at 07:30 Acetaminophen (Tylenol) 650 mg PRN Q6HRS PRN PO MILD PAIN / TEMP > 100.3'F; Start 06/28/21 at 07:30 Hydralazine HCl (Apresoline Inj) 10 mg PRN Q4HRS PRN IVP ELEVATED BP, SEE COMMENTS; Start 06/28/21 at 07:30 Active Scripts Active Cyclobenzaprine Hcl 10 Mg Tablet 1 Tab PO TID Diclofenac Potassium 50 Mg Tablet 1 Tab PO BID Medrol (Methylprednisolone) 4 Mg Tab.ds.pk 1 Pkg PO UD Cyclobenzaprine Hcl 10 Mg Tablet 1 Tab PO TID [Percogesic] 1 Tab PO QID PRN [place] 5-325 Tablet (Acetaminophen/Hydrocodone Bitart) 1 Each Tablet 1 Tab PO PRN Q6HRS PRN Penicillin V Potassium 500 Mg Tablet 1 Tab PO QID 10 Days [place] 5-325 Tablet (Acetaminophen/Hydrocodone Bitart) 1 Each Tablet 1 Tab PO PRN Q6HRS PRN Ibuprofen 600 Mg Tablet 600 Mg PO PRN Q6HRS PRN 7 Days Ibuprofen 800 Mg Tablet 800 Mg PO PRN Q6HRS PRN Robaxin-750 (Methocarbamol) 750 Mg Tablet 1 Tab PO BID Medrol (Methylprednisolone) 4 Mg Tab.ds.pk 1 Pkg PO UD Xanax (Alprazolam) 0.5 Mg Tablet 1 Tab PO DAILY [place] 10-325 Tablet (Acetaminophen/Hydrocodone Bitart) 1 Each Tablet 1 Tab PO BID Medrol (Methylprednisolone) 4 Mg Tab.ds.pk 1 Pkg PO UD Percocet 5-325 Mg Tablet (Oxycodone/Acetaminophen) 1 Each Tablet 1 Tab PO BID 3 Days Percocet 5-325 Mg Tablet (Oxycodone/Acetaminophen) 1 Each Tablet 1 Tab PO BID 4 Days Naproxen 500 Mg Tablet. 1 Tab PO BID Tylenol With Codeine #3 Tablet (Acetaminophen/Codeine Phosphate) 1 Each Tablet 1 Tab PO PRN Q6HRS PRN Cyclobenzaprine Hcl 10 Mg Tablet 10 Mg PO TID Ultram (Tramadol Hcl) 50 Mg Tablet 1 Tab PO Q6HRS Amoxicillin 875 Mg Tablet 1 Tab PO BID Percocet 5-325 Mg Tablet (Oxycodone/Acetaminophen) 1 Each Tablet 1 Tab PO PRN Q6HRS PRN Cyclobenzaprine Hcl 5 Mg Tablet 1 Tab PO TID PRN Cortef (Hydrocortisone) 5 Mg Tablet 5 Mg PO DAILYWSUP Cortef (Hydrocortisone) 5 Mg Tablet 5 Mg PO DAILYWLUN Cortef (Hydrocortisone) 5 Mg Tablet 15 Mg PO DAILY08 Hydrocodone-Apap 10-325 (Hydrocodone Bit/Acetaminophen) 1 Each Tablet 1 Tab PO PRN Q6HRS PRN Gabapentin 600 Mg Tablet 600 Mg PO TID Seroquel Xr (Quetiapine Fumarate) 50 Mg Tab.er.24h 50 Mg PO HS Xanax (Alprazolam) 0.5 Mg Tablet 1 Tab PO BID PRN Motrin Ib (Ibuprofen) 200 Mg Tablet 200 Mg PO Q8H Cabergoline 0.5 Mg Tablet 0.5 Mg PO QTH Cabergoline 0.5 Mg Tablet 0.25 Mg PO QTU Reported Aspir 81 (Aspirin) 81 Mg Tablet.dr 1 Tab PO DAILY Lisinopril 2.5 Mg Tablet 2.5 Mg PO DAILY Amitriptyline Hcl 50 Mg Tablet 1 Tab PO QHS Hydroxyzine Hcl 25 Mg Tablet 1 Tab PO PRN Q8HRS PRN Trazodone Hcl 100 Mg Tablet 100 Mg PO HS Allergies Allergies: Coded Allergies: Sulfa (Sulfonamide Antibiotics) (Verified Allergy, Intermediate, 08/06/17) ROS Review of System GENERAL: Syncope. No history of weight change or fevers. SKIN: No bruising, hair changes or rashes. EYES: No blurred, double or loss of vision. NOSE AND THROAT: No history of nosebleeds, hoarseness or sore throat. HEART: Denies chest pain, denies palpitations. LUNGS: Denies cough, hemoptysis, wheezing or shortness of breath. GASTROINTESTINAL: Denies nausea, vomiting, abdominal pain. GENITOURINARY: Denies dysuria, frequency, urgency, hematuria. NEUROLOGIC: Headache. Denies history of numbness, tingling, or tremor. PSYCHIATRIC: Denies anxiety, denies depression. ENDOCRINE: No history of heat or cold intolerance, polyuria or polydipsia. EXTREMITIES: Denies muscle weakness, joint pain, pain on walking or stiffness. Physical Exam Physical Exam General: Frail-appearing. Alert, Oriented X3, Cooperative, No acute distress HEENT: PERRLA, EOMI Lungs: Clear to auscultation, Normal air movement Heart: RRR, no murmurs Cardiovascular: S1, S2. Midline sternotomy scar. Abdomen: Normal bowel sounds, Soft, No tenderness Extremities: No clubbing, No cyanosis Skin: No rashes, No significant lesion Neuro: Normal speech, Normal tone, Sensation intact Psych/Mental Status: Mental status NL, Mood NL Vitals Vitals Vital Signs Date Time Temp Pulse Resp B/P (MAP) Pulse Ox O2 Delivery O2 Flow Rate FiO2 06/28/21 07:00 98.9 69 18 106/69 (81) 93 Room Air 98.9 Labs Labs Laboratory Tests Test 06/28/21 00:03 06/28/21 02:37 White Blood Count 4.8 x10^3/uL (4.0-11.0) Red Blood Count 4.28 x10^6/uL (4.30-5.70) Hemoglobin 13.1 g/dL (13.0-17.5) Hematocrit 38.9 % (39.0-53.0) Mean Corpuscular Volume 91 fL (79-100) Mean Corpuscular Hemoglobin 31 pg (25-35) Mean Corpuscular Hemoglobin Concent 34 g/dL (31-37) Red Cell Distribution Width 12.2 % (11.5-14.5) Platelet Count 212 x10^3/uL (140-400) Neutrophils (%) (Auto) 51 % (31-73) Lymphocytes (%) (Auto) 35 % (24-48) Monocytes (%) (Auto) 12 % (0-9) Eosinophils (%) (Auto) 1 % (0-3) Basophils (%) (Auto) 1 % (0-3) Neutrophils # (Auto) 2.4 x10^3/uL (1.8-7.7) Lymphocytes # (Auto) 1.7 x10^3/uL (1.0-4.8) Monocytes # (Auto) 0.5 x10^3/uL (0.0-1.1) Eosinophils # (Auto) 0.1 x10^3/uL (0.0-0.7) Basophils # (Auto) 0.1 x10^3/uL (0.0-0.2) Prothrombin Time 12.6 SEC (11.7-14.0) Prothromb Time International Ratio 1.0 (0.8-1.1) Activated Partial Thromboplast Time 27 SEC (24-38) Sodium Level 140 mmol/L (136-145) Potassium Level 4.2 mmol/L (3.5-5.1) Chloride Level 105 mmol/L (98-107) Carbon Dioxide Level 28 mmol/L (21-32) Anion Gap 7 (6-14) Blood Urea Nitrogen 26 mg/dL (8-26) Creatinine 1.2 mg/dL (0.7-1.3) Estimated GFR (Cockcroft-Gault) 62.2 BUN/Creatinine Ratio 22 (6-20) Glucose Level 102 mg/dL (70-99) Calcium Level 9.0 mg/dL (8.5-10.1) Total Bilirubin 0.4 mg/dL (0.2-1.0) Aspartate Amino Transf (AST/SGOT) 25 U/L (15-37) Alanine Aminotransferase (ALT/SGPT) 50 U/L (16-63) Alkaline Phosphatase 49 U/L (46-116) Troponin I High Sensitivity 8 ng/L (4-75) XF-Zme-C-Type Natriuretic Peptide 129 pg/mL (0-124) Total Protein 7.1 g/dL (6.4-8.2) Albumin 4.0 g/dL (3.4-5.0) Albumin/Globulin Ratio 1.3 (1.0-1.7) Influenza Type A Antigen Negative (NEGATIVE) Influenza Type B Antigen Negative (NEGATIVE) SARS-CoV-2 Antigen (Rapid) Negative (NEGATIVE) Laboratory Tests Test 06/28/21 00:03 06/28/21 02:37 White Blood Count 4.8 x10^3/uL (4.0-11.0) Red Blood Count 4.28 x10^6/uL (4.30-5.70) Hemoglobin 13.1 g/dL (13.0-17.5) Hematocrit 38.9 % (39.0-53.0) Mean Corpuscular Volume 91 fL (79-100) Mean Corpuscular Hemoglobin 31 pg (25-35) Mean Corpuscular Hemoglobin Concent 34 g/dL (31-37) Red Cell Distribution Width 12.2 % (11.5-14.5) Platelet Count 212 x10^3/uL (140-400) Neutrophils (%) (Auto) 51 % (31-73) Lymphocytes (%) (Auto) 35 % (24-48) Monocytes (%) (Auto) 12 % (0-9) Eosinophils (%) (Auto) 1 % (0-3) Basophils (%) (Auto) 1 % (0-3) Neutrophils # (Auto) 2.4 x10^3/uL (1.8-7.7) Lymphocytes # (Auto) 1.7 x10^3/uL (1.0-4.8) Monocytes # (Auto) 0.5 x10^3/uL (0.0-1.1) Eosinophils # (Auto) 0.1 x10^3/uL (0.0-0.7) Basophils # (Auto) 0.1 x10^3/uL (0.0-0.2) Prothrombin Time 12.6 SEC (11.7-14.0) Prothromb Time International Ratio 1.0 (0.8-1.1) Activated Partial Thromboplast Time 27 SEC (24-38) Sodium Level 140 mmol/L (136-145) Potassium Level 4.2 mmol/L (3.5-5.1) Chloride Level 105 mmol/L (98-107) Carbon Dioxide Level 28 mmol/L (21-32) Anion Gap 7 (6-14) Blood Urea Nitrogen 26 mg/dL (8-26) Creatinine 1.2 mg/dL (0.7-1.3) Estimated GFR (Cockcroft-Gault) 62.2 BUN/Creatinine Ratio 22 (6-20) Glucose Level 102 mg/dL (70-99) Calcium Level 9.0 mg/dL (8.5-10.1) Total Bilirubin 0.4 mg/dL (0.2-1.0) Aspartate Amino Transf (AST/SGOT) 25 U/L (15-37) Alanine Aminotransferase (ALT/SGPT) 50 U/L (16-63) Alkaline Phosphatase 49 U/L (46-116) Troponin I High Sensitivity 8 ng/L (4-75) GF-Axw-G-Type Natriuretic Peptide 129 pg/mL (0-124) Total Protein 7.1 g/dL (6.4-8.2) Albumin 4.0 g/dL (3.4-5.0) Albumin/Globulin Ratio 1.3 (1.0-1.7) Influenza Type A Antigen Negative (NEGATIVE) Influenza Type B Antigen Negative (NEGATIVE) SARS-CoV-2 Antigen (Rapid) Negative (NEGATIVE) Images Images PATIENT: RAPHAEL BURROUGHS LACCOUNT: [id number] : 1965 LOCATION: ER AGE: 56 SEX: M EXAM STATUS: PRE ER ORD. PHYSICIAN: GAEL WORTHINGTON MD REASON: syncope PROCEDURE: CT HEAD WO CONTRAST EXAMINATION: CT HEAD/BRAIN WO CLINICAL HISTORY: Syncope. History of pituitary tumor. TECHNIQUE: Serial axial images without IV contrast were obtained from the vertex to the foramen magnum. CT Dose Reduction Employed: One or more of the following individualized dose reduction techniques were utilized for this examination: 1. Automated exposure control 2. Adjustment of the mA and/or kV according to patient size 3. Use of iterative reconstruction technique. COMPARISON: 08/22/2017 FINDINGS: Acute Change: No evidence of an acute infarct or other acute parenchymal pr ocess. Hemorrhage: No evidence of acute intracranial hemorrhage. Mass Lesion/Mass Effect: No evidence of intracranial mass or extraaxial fluid collection. No significant mass effect. Chronic Change: Encephalomalacia in the anterior-inferior frontal lobes and right temporal lobe, similar to prior study and likely related to remote insult/infarct. Scattered patchy foci of hypoattenuation in the supratentorial white matter, nonspecific but likely represents mild microvascular ischemia. Parenchyma: No significant volume loss. Parenchyma otherwise within normal limits for age. Ventricles: Ventricles within normal limits for age. Paranasal Sinuses and Skull Base: Visualized paranasal sinuses clear. Expanded sella turcica, similar to prior study. IMPRESSION: No evidence of acute intracranial abnormality or significant interval change. VTE Prophylaxis Ordered VTE Prophylaxis Devices: No VTE Pharmacological Prophylaxi: Yes Assessment/Plan Assessment/Plan Syncope CAD History CABG DDD Drug-seeking behavior Plan: Consultation placed to cardiology TSH, magnesium pending Echocardiogram from 08/04/2017 showed normal left ventricular systolic function, normal LV segmental wall motion, ejection fraction 60-65% Repeat echocardiogram pending Patient's only complaint at the time my evaluation is back pain and is asking for pain medication FEN - Cardiac diet PPX - Heparin DNR/patient names surrogate decision-maker is his brother (Edison Dunn) Dispo - inpatient for above Justifications for Admission Other Justification LOW LARKIN MD Jun 28, 2021 08:59
[2021-06-28] MEDS ORDERED: CALCIUM CARBONATE 500 MG TAB.CHEW PO PRN (09:15)
[2021-06-28] MEDS ORDERED: ZOLPIDEM 5 MG TABLET. PO PRN (09:15)
[2021-06-28] MEDS ORDERED: MAG HYDROX/ALUMINUM HYD/SIMETH 30 ML ORAL.SUSP PO PRN (09:15)
[2021-06-28] MEDS ORDERED: MAGNESIUM HYDROXIDE 2,400 MG/30 ML ORAL.SUSP. PO PRN (09:15)
[2021-06-28] MEDS ORDERED: HYDROcodone/APAP 5/325MG 1 TAB TABLET PO PRN ×2 (09:15)
--- NOTE | 2021-06-28 10:58 | PDOC2 ---
MAYCO MCBRIDE HEADING REPAIRER 06/28/21 1058: CARDIAC CONSULT DATE OF CONSULT Date of Consult DATE: 06/28/21 TIME: 10:41 REASON FOR CONSULT Reason for Consult: symptomatic bradycardia REFERRING PHYSICIAN Referring Physician: Dr. Seals SOURCE Source: Chart review, Patient HISTORY OF PRESENT ILLNESS HISTORY OF PRESENT ILLNESS This is a 56 yo male who presented secondary to syncopal episode. Was noted to be bradycardic, which prompted this consult. Patient was reportedly ambulating to the kitchen and had syncopal episode. Significant other heard him hit the ground. Reports complete LOC. EMS was called. Reports feeling somewhat nauseated yesterday morning and did not have much to eat or drink. Also reports using cocaine. EKG in ED showing SR. No significant brett or high-grade block noted on tele overnight. HR presently in mid 60's. Patient reports feeling well and would like to go home. Has a history of AVR in 2007 at [facility]. Previously followed with transmitter engineer in charge at [facility], but has not seen in many years. [facility] 2013 without significant CAD as noted below. Presently denies any dizziness, chest pain, palpitations, diaphoresis, or nausea/vomiting. JJ has also resolved. Reports back pain that is chronic due to DDD. PAST MEDICAL HISTORY Past Medical History Cardiovascular: CHF, HTN, Syncope, Hyperlipidemia, Other (aortic valve repair) Pulmonary: COPD CENTRAL NERVOUS SYSTEM: CVA GI: GERD, Other Heme/Onc: Anemia NOS, Cancer (pituitary gland tumor) Hepatobiliary: Hep A/B/C Psych: Anxiety, Bipolar, Other Musculoskeletal: low back pain, Osteoarthritis Rheumatologic: Other (DJD, back pain) Infectious disease: No pertinent hx Renal/: No pertinent hx Endocrine: Hypothyroidism PAST SURGICAL HISTORY Past Surgical History: Other (aortic valve repair ) FAMILY HISTORY Family History: Heart Disease SOCIAL HISTORY Smoke: 1 pack per day ALCOHOL: occassional Drugs: Cocaine Lives: with Family CURRENT MEDICATIONS CURRENT MEDICATIONS Current Medications Medications (Trade) Dose Ordered Sig/Garrett Route PRN Reason Start Time Stop Time Status Last Admin Dose Admin Sodium Chloride 1,000 ml @ 1,000 mls/hr 1X ONCE IV 06/28/21 00:15 06/28/21 01:14 DC 06/28/21 00:37 ALLERGIES ALLERGIES: Coded Allergies: Sulfa (Sulfonamide Antibiotics) (Verified Allergy, Intermediate, 08/06/17) ROS Review of System 14 point ROS conducted with pertinent positives noted above in HPI PHYSICAL EXAM General: Alert, Oriented X3, Cooperative, No acute distress HEENT: Atraumatic Lungs: Clear to auscultation Heart: Regular rate (SR) Abdomen: Soft Extremities: No edema, Normal pulses Skin: No significant lesion Neuro: Normal speech, Sensation intact VITALS/I&O VITALS/I&O: Vital Signs Date Time Temp Pulse Resp B/P (MAP) Pulse Ox O2 Delivery O2 Flow Rate FiO2 06/28/21 07:00 98.9 69 18 106/69 (81) 93 Room Air 98.9 I & O 06/27/21 06/27/21 06/28/21 15:00 23:00 07:00 Intake Total 1000 ml Output Total 300 ml Balance 700 ml LABS Lab: Laboratory Tests Test 06/28/21 00:03 06/28/21 02:37 06/28/21 08:10 White Blood Count 4.8 x10^3/uL (4.0-11.0) Red Blood Count 4.28 x10^6/uL (4.30-5.70) L Hemoglobin 13.1 g/dL (13.0-17.5) Hematocrit 38.9 % (39.0-53.0) L Mean Corpuscular Volume 91 fL (79-100) Mean Corpuscular Hemoglobin 31 pg (25-35) Mean Corpuscular Hemoglobin Concent 34 g/dL (31-37) Red Cell Distribution Width 12.2 % (11.5-14.5) Platelet Count 212 x10^3/uL (140-400) Neutrophils (%) (Auto) 51 % (31-73) Lymphocytes (%) (Auto) 35 % (24-48) Monocytes (%) (Auto) 12 % (0-9) H Eosinophils (%) (Auto) 1 % (0-3) Basophils (%) (Auto) 1 % (0-3) Neutrophils # (Auto) 2.4 x10^3/uL (1.8-7.7) Lymphocytes # (Auto) 1.7 x10^3/uL (1.0-4.8) Monocytes # (Auto) 0.5 x10^3/uL (0.0-1.1) Eosinophils # (Auto) 0.1 x10^3/uL (0.0-0.7) Basophils # (Auto) 0.1 x10^3/uL (0.0-0.2) Prothrombin Time 12.6 SEC (11.7-14.0) Prothrombin Time INR 1.0 (0.8-1.1) Activated Partial Thromboplast Time 27 SEC (24-38) Sodium Level 140 mmol/L (136-145) Potassium Level 4.2 mmol/L (3.5-5.1) Chloride Level 105 mmol/L (98-107) Carbon Dioxide Level 28 mmol/L (21-32) Anion Gap 7 (6-14) Blood Urea Nitrogen 26 mg/dL (8-26) Creatinine 1.2 mg/dL (0.7-1.3) Estimated GFR (Cockcroft-Gault) 62.2 BUN/Creatinine Ratio 22 (6-20) H Glucose Level 102 mg/dL (70-99) H Calcium Level 9.0 mg/dL (8.5-10.1) Total Bilirubin 0.4 mg/dL (0.2-1.0) Aspartate Amino Transferase (AST) 25 U/L (15-37) Alanine Aminotransferase (ALT) 50 U/L (16-63) Alkaline Phosphatase 49 U/L (46-116) Troponin I High Sensitivity 8 ng/L (4-75) 7 ng/L (4-75) KA-Tkw-W-Type Natriuretic Peptide 129 pg/mL (0-124) H Total Protein 7.1 g/dL (6.4-8.2) Albumin 4.0 g/dL (3.4-5.0) Albumin/Globulin Ratio 1.3 (1.0-1.7) Influenza Type A Antigen Negative (NEGATIVE) Influenza Type B Antigen Negative (NEGATIVE) SARS-CoV-2 Antigen (Rapid) Negative (NEGATIVE) Magnesium Level 2.1 mg/dL (1.8-2.4) Thyroid Stimulating Hormone (TSH) 0.704 uIU/mL (0.358-3.74) Laboratory Tests 06/28/21 00:03 Laboratory Tests 06/28/21 00:03 ECHOCARDIOGRAM ECHOCARDIOGRAM <Conclusion> The left ventricular systolic function is normal. The Ejection Fraction is 60-65%. There is normal LV segmental wall motion. Trace to mild aortic regurgitation. Trace mitral regurgitation. Mild tricuspid regurgitation. There is no evidence of significant pericardial effusion. DATE: 08/04/17 1148 ASSESSMENT/PLAN ASSESSMENT/PLAN 1. Syncopal episode; CT head without acute findings 2. Sinus bradycardia; EKS shows SB. no significant pauses or high grade AVB noted overnight on tele. Appropriate chronotropic response with activity 3. S/p aortic valve repair 2007 4. Hypertension; controlled 5. HLP 6. Chronic diastolic CHF; compensated 7. ALVIN: volume depletion. s/p IVFs 8. Substance abuse; admits to cocaine use. UDS pending 9. Tobaccoism 10. DDD with chronic back pain Recommendations Echo pending Obtain orthos Avoid AV kianna blocking agents Consider outpatient event monitor Discussed cessation from recreational drug use and tobacco Supportive care Outpatient followup CHRIS NELSON MD 06/28/21 8198: CARDIAC CONSULT ASSESSMENT/PLAN ASSESSMENT/PLAN Patient seen and examined. Agree with above nurse practitioner note. Echocardiogram is unremarkable. Telemetry so far is unremarkable. Supportive care. Drug cessation and we will determine if there is any issues in an outpatient basis MAYCO MCBRIDE APRN Jun 28, 2021 10:58 CHRIS NELSON MD Jun 28, 2021 17:58
[2021-06-28 11:00] VITALS: BP 102/60
[2021-06-28 11:53] LABS: BACTERIA,URINE 0 /HPF (0-FEW); RBC,URINE 0 /HPF (0-2); WBC,URINE 0 /HPF (0-4)
[2021-06-28 11:57] LABS: BARBITURATES NEG (NEG); BENZODIAZEPINES NEG (NEG); CANNABINOIDS NEG (NEG); COCAINE POS (NEG); METHADONE NEG (NEG); OPIATES NEG (NEG); PHENCYCLIDINE NEG (NEG)
[2021-06-28 11:59] LABS: AMPHETAMINE/METHAMPHETAMINE NEG (NEG)
[2021-06-28] MEDS ORDERED: HEPARIN for SUB-Q USE 5,000 UNIT/ML VIAL. SQ SCH (14:00)
[2021-06-28 14:39] VITALS: BP_SYST 109; BP_SYST 117; BP_DIAS 63; BP_DIAS 65
[2021-06-28 14:40] VITALS: BP 114/65
--- NOTE | 2021-06-28 15:55 | CARD ---
MR#: [id number] Date of Study: 06/28/2021 Ordering Physician: PEDRITO JAMES, Referring Physician: PEDRITO JAMES Tech: Grey Pugh [facility] APPROVED REPORT EXAM: Two-dimensional and M-mode echocardiogram with Doppler and color Doppler. Other Information Quality : GoodHR: 67bpm Rhythm : NSR INDICATION Syncope Surgery/Intervention The note indicates that he is s/p AVR?? RISK FACTORS Family History Smoking Substance abuse, COPD 2D DIMENSIONS Left Atrium(2D)3.3 (1.6-4.0cm)IVSd0.7 (0.7-1.1cm) Aortic Root(2D)3.5 (2.0-3.7cm)LVDd4.7 (3.9-5.9cm) LVOT Diameter2.0 (1.8-2.4cm)PWd0.7 (0.7-1.1cm) LA Nqyuum19 (18-58mL)LVDs2.4 (2.5-4.0cm) FS (%) 48.1 %SV80.7 ml LVEF(%)79.5 (>50%) Aortic Valve AoV Peak Taye.177.6cm/sAoV VTI31.7cm AO Peak GR.12.6mmHgLVOT Peak Taye.152.0cm/s AO Mean GR.6mmHgAVA (VMAX)2.64cm2 Mitral Valve MV E Ieiihiib969.6cm/sMV E Peak Gr.6mmHg MV DECEL [id number] A Vceszccs91.0cm/s MV E Mean Gr.2mmHgE/A Ratio1.6 Pulmonary Valve PV Peak Btiardmf663.0cm/s Tricuspid Valve TR P. Egjsmcdl833tb/sTR Peak Gr.20mmHg Pulmonary Vein S1 Dahpchmz59.4cm/sD2 Wzzzcgbm57.4cm/s LEFT VENTRICLE The left ventricle is normal size. There is normal left ventricular wall thickness. The left ventricu lar systolic function is normal and the ejection fraction is within normal range. EF 55% There is nor mal LV segmental wall motion. The left ventricular diastolic function and filling is normal for age. No left ventricle thrombus noted on this study. There is no ventricular septal defect visualized. The re is no left ventricular aneurysm. There is no mass noted in the left ventricle. RIGHT VENTRICLE The right ventricle is normal size. There is normal right ventricular wall thickness. The right ventr icular systolic function is normal. ATRIA The left atrium size is normal. The right atrium size is normal. The interatrial septum is intact wit h no evidence for an atrial septal defect or patent foramen ovale as noted on 2-D or Doppler imaging. AORTIC VALVE The aortic valve is normal in structure and function. Doppler and Color Flow revealed trace to mild a ortic regurgitation. There is no significant aortic valvular stenosis. There is no aortic valvular ve getation. MITRAL VALVE The mitral valve is normal in structure and function. There is no evidence of mitral valve prolapse. There is no mitral valve stenosis. Doppler and Color Flow revealed no mitral valve regurgitation note d. TRICUSPID VALVE The tricuspid valve is normal in structure and function. Doppler and Color Flow revealed trace to mil d tricuspid regurgitation. There is no tricuspid valve prolapse or vegetation. There is no tricuspid valve stenosis. PULMONIC VALVE Doppler and Color Flow revealed no pulmonic valvular regurgitation. There is no pulmonic valvular chidi nosis. GREAT VESSELS The aortic root is normal in size. The ascending aorta is normal in size. The IVC is normal in size a nd collapses >50% with inspiration. PERICARDIAL EFFUSION There is no pleural effusion. There is no evidence of significant pericardial effusion. Critical Notification Critical Value: No <Conclusion> The left ventricular systolic function is normal and the ejection fraction is within normal range. EF 55% There is normal LV segmental wall motion. Signed by : Ari Puri, Electronically Approved : 06/28/2021 15:55:14
--- NOTE | 2021-06-28 16:42 | NUR ---
SS following for discharge planning. SS reviewed pt chart and discussed with pt RN. Pt is from home and is currently on room air. COVID19 negative. Cardiology consulted. SS will continue to follow for discharge planning.
--- NOTE | 2021-06-28 19:09 | NUR ---
Discharge Note: RAPHAEL BURROUGHS [address] Discharge instructions and discharge home medications reviewed with the patient and a copy given. All questions have been answered and understanding verbalized. The following instructions and handouts were given: Home meds as directed, syncope handout and cocaine misuse Discusse with patient to follow up with PCP and also mental health provider to update and refill his meds; patient has been off his psychotropic meds Followup with cardiology regarding further work and with PCP in a week. Discontinued lines and drains: IV intact, no complications Patient discharged to home via wheelchair accompanied by his girlfriend via wheelchair at 1840.
== END 2021-06-28 18:40 | disposition home or self-care (01) | DRG 312 ==
LOC: ER 23:52 → 2 NORTH 06-28 02:25
PROVIDERS: ADMIT Internal Medicine; ATTEND Internal Medicine
DX: R55 Syncope and collapse (principal); I50.32 Chronic diastolic (congestive) heart failure; N17.9 Acute kidney failure, unspecified; R00.1 Bradycardia, unspecified; Z79.01 Long term (current) use of anticoagulants; E03.9 Hypothyroidism, unspecified; E78.5 Hyperlipidemia, unspecified; E86.0 Dehydration; F17.210 Nicotine dependence, cigarettes, uncomplicated; F31.9 Bipolar disorder, unspecified; G89.29 Other chronic pain; I11.0 Hypertensive heart disease with heart failure; I25.10 Atherosclerotic heart disease of native coronary artery without angina pectoris; F41.9 Anxiety disorder, unspecified; K21.9 Gastro-esophageal reflux disease without esophagitis; M19.90 Unspecified osteoarthritis, unspecified site; J44.9 Chronic obstructive pulmonary disease, unspecified; Z76.5 Malingerer [conscious simulation]; Z82.49 Family history of ischemic heart disease and other diseases of the circulatory system; Z86.73 Personal history of transient ischemic attack (TIA), and cerebral infarction without residual deficits; Z95.1 Presence of aortocoronary bypass graft; Z95.2 Presence of prosthetic heart valve; Z20.822 Contact with and (suspected) exposure to COVID-19
CPT/HCPCS: 36415; 70450; 80053; 80307; 81001; 83735; 83880; 84443; 84484; 85025; 85610; 85730; 87428; 93005; 93306; 96360; 96361; J1644; J7030; 99285-25; C8929; G0378